=== PATIENT | female | born 1940 | race Caucasian/White ===

== ENCOUNTER 2016-06-24 10:55 | Outpatient (CLI) | payer MEDICARE, OTHER | END 2016-06-24 10:56 | disposition home or self-care (01) | DX: N63 Unspecified lump in breast (principal) ==

== ENCOUNTER 2016-08-25 08:40 | Outpatient (CLI) | payer MEDICARE, OTHER ==
[2016-08-25 13:26] LABS: HEMOGLOBIN A1C 0.59 g/dL
[2016-08-25 13:42] LABS: ALBUMIN/GLOBULIN RATIO 1.4 (1.0-2.2); BILIRUBIN,TOTAL 1.1 mg/dL (0.2-1.0); BUN - BLOOD UREA NITROGEN 10 mg/dL (6-20); CALCIUM 9.1 mg/dL (8.5-10.3); CARBON DIOXIDE - CO2 25 mmol/L (21-32); CHLORIDE 102 mmol/L (101-111); CREATININE 0.8 mg/dL (0.4-1.0); GFR - MDRD 70 (>89); GLUCOSE 121 mg/dL (70-100); POTASSIUM 3.8 mmol/L (3.5-5.0); SODIUM 136 mmol/L (135-145); TOTAL PROTEIN 6.6 g/dL (6.7-8.2)
== END 2016-08-25 08:41 | disposition home or self-care (01) ==
LOC: LAB.WCP 08:40
PROVIDERS: ATTEND Family Medicine
DX: I42.1 Obstructive hypertrophic cardiomyopathy (principal); E03.9 Hypothyroidism, unspecified; I10 Essential (primary) hypertension
CPT/HCPCS: 36415; 80053; 83036; 84443

== ENCOUNTER 2016-10-15 10:48 | Emergency (ER) | payer MEDICARE, OTHER ==
[2016-10-15] MEDS ORDERED: LIDOCAINE VISCOUS 2% 15 ML UDC MM STA (13:40)
[2016-10-15] MEDS ORDERED: MAG HYDROX/AL HYDROX/SIMETH 30 ML UDC PO STA (13:40)
[2016-10-15] MEDS ORDERED: PHENobarb/HYOSCY/ATROPINE/SCOP 5 ML SYRINGE PO STA (13:40)
--- NOTE | 2016-10-15 13:45 | ED Physician Documentation ---
PD HPI ABD PAIN - Stated complaint Stated Complaint: ABD PX - Chief complaint Chief Complaint: Abd Pain - History obtained from History obtained from: Patient - History of Present Illness Timing - onset: Today Timing - details: Still present Pain level max: 10 Pain level now: 7 Quality: Pain Location: Epigastric Associated symptoms: Nausea, Vomiting (1). No: Fever, Diarrhea, Dysuria Similar symptoms before: Diagnosis (history of GERD) - Additional information Additional information: The patient is a 75-year-old female who presents with epigastric abdominal pain that started this morning shortly after eating yogurt and drinking tea.She reports associated nausea with 1 small emesis. Her pain was initially a 10 out of 10 in severity, but is currently 7 out of 10 in severity. It briefly radiated to the left lower quadrant. She denies fever, diarrhea, or dysuria. She does have history of similar symptoms in the past but not this bad before. Surgical history is significant for cholecystectomy and for bladder suspension with mesh. She also has history of gastroesophageal reflux, for which she previously was taking medication, but does not take any medication for reflux currently. Review of Systems Constitutional: denies: Fever, Fatigue Ears: denies: Tinnitus/ringing Nose: denies: Congestion Throat: denies: Sore throat Cardiac: denies: Chest pain / pressure, Palpitations Respiratory: denies: Dyspnea, Cough GI: reports: Abdominal Pain, Nausea, Vomiting. 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 Cardiovascular: Coronary stent HEENT: Cataracts, Tonsil/Adenoidectomy, Other - Present Medications Home Medications: Ambulatory Orders Medication Instructions Recorded Confirmed Atorvastatin Calcium [Lipitor] 10 mg PO DAILY 08/06/12 10/15/16 Carvedilol [Coreg] 12.5 mg PO BID 08/06/12 10/15/16 Levothyroxine Sodium [Synthroid] 25 mcg PO DAILY 08/06/12 10/15/16 Aspirin 81 mg PO DAILY 10/15/16 10/15/16 Nitrofurantoin [Macrobid] 100 mg PO BID #10 capsule 10/15/16 Telmisartan [Micardis] 20 mg PO DAILY 10/15/16 10/15/16 raNITIdine [Zantac] 150 mg PO BID #30 tablet 10/15/16 - Allergies Allergies/Adverse Reactions: Allergies Allergy/AdvReac Type Severity Reaction Status Date / Time calcium carbonate Allergy Severe Anaphylaxis Verified 10/15/16 11:00 [From Os-Harvey] iodine Allergy Severe Rash Verified 10/15/16 11:00 red dye AdvReac Unknown Verified 10/15/16 11:00 - Social History Does the pt smoke?: No Smoking Status: Never smoker Does the pt drink ETOH?: No Does the pt have substance abuse?: No - Immunizations Immunizations are current?: Yes - POLST Patient has POLST: No PD ED PE NORMAL - Vitals Vital signs reviewed: Yes (Normal) - General General: Alert and oriented X 3, Well developed/nourished, Other (Overweight.) - HEENT HEENT: Atraumatic, Pharynx benign - Neck Neck: No adenopathy, No JVD - Cardiac Cardiac: RRR, No murmur - Respiratory Respiratory: No respiratory distress, Clear bilaterally - Abdomen Abdomen: Normal bowel sounds, Soft, Non distended, Other (Epigastric tenderness to palpation, without rebound or guarding.) - Back Back: No CVA TTP - Derm Derm: No rash - Extremities Extremities: No edema, No calf tenderness / cord - Neuro Neuro: Alert and oriented X 3, No motor deficit, Normal speech Results - Vitals Vitals: Vital Signs - 24 hr 10/15/16 10/15/16 14:02 14:58 Temperature 36.6 C Heart Rate 60 62 Respiratory 15 20 Rate Blood Pressure 149/68 H 144/70 H O2 Saturation 100 98 Oxygen O2 Source Room air - Labs Labs: Laboratory Tests 10/15/16 10/15/16 10/15/16 13:50 13:57 13:57 WBC 9.6 RBC 4.43 Hgb 14.1 Hct 41.2 MCV 93.0 MCH 31.7 H MCHC 34.1 RDW 13.3 Plt Count 233 MPV 7.9 Neut # 7.6 H Lymph # 1.4 L [place] # 0.5 Eos # 0.1 Baso # 0.1 Absolute Nucleated RBC 0.00 Nucleated RBCs 0.0 Sodium 137 Potassium 4.3 Chloride 102 Carbon Dioxide 27 Anion Gap 8.0 BUN 9 Creatinine 0.7 Estimated GFR (MDRD) 82 L Glucose 112 H Calcium 10.3 Total Bilirubin 1.1 H AST 73 H ALT 113 H Alkaline Phosphatase 77 Total Protein 7.7 Albumin 4.4 Globulin 3.3 Albumin/Globulin Ratio 1.3 Lipase 30 Urine Color LIGHT YELLOW Urine Clarity HAZY Urine pH 6.5 Ur Specific [place] 1.010 Urine Protein NEGATIVE Urine Glucose (UA) NEGATIVE Urine Ketones NEGATIVE Urine Occult Blood TRACE-LYSE Urine Nitrite POSITIVE H Urine Bilirubin NEGATIVE Urine Urobilinogen 0.2 (NORMAL) Ur Leukocyte Esterase MODERATE H Urine RBC 0-5 Urine WBC 11-25 H Urine WBC Clumps PRESENT Ur Squamous Epith Cells FEW Squamous Urine Bacteria Moderate H Urine Mucus Few Strands Ur Microscopic Review INDICATED Urine Culture Comments INDICATED PD MEDICAL DECISION MAKING - ED course Complexity details: reviewed old records, reviewed results, re-evaluated patient , considered differential, d/w patient, d/w family ED course: The patient's presentation is most consistent with gastroesophageal reflux disease, and also for acute cystitis. Her presentation does not suggest cardiac ischemia, biliary colic, pancreatitis, or pyelonephritis. CBC and chemistry panel are normal. Urinalysis is indicative of bladder infection. Treatment in the emergency department included administration of GI cocktail, which completely relieved her epigastric discomfort. Macrobid 100 mg is administered orally. She is being discharged with prescriptions for ranitidine and for Macrobid. I discussed with her and her the diagnosis, antibiotic treatment and outpatient follow-up, as well as potentially worrisome signs or symptoms that should prompt reevaluation in the emergency departmeny. Departure - Departure Disposition: 01 Home, Self Care Clinical Impression: GERD (gastroesophageal reflux disease) Qualifiers: Esophagitis presence: esophagitis presence not specified Qualified Code(s): K21.9 - Gastro-esophageal reflux disease without esophagitis Urinary tract infection Qualifiers: Urinary tract infection type: acute cystitis Hematuria presence: without hematuria Qualified Code(s): N30.00 - Acute cystitis without hematuria Instructions: ED GERD, ED UTI Cystitis Female Follow-Up: Jamie Rios MD [Primary Care Provider] - Prescriptions: Nitrofurantoin [Macrobid] 100 mg PO BID #10 capsule raNITIdine [Zantac] 150 mg PO BID #30 tablet Comments: Drink plenty of fluids, including cranberry juice. Take Macrobid twice daily as prescribed. Take ranitidine twice daily as prescribed. Follow-up with your primary physician within 1-2 weeks. Call to schedule appointment. Return to the emergency department if you develop increasing abdominal pain, persistent vomiting, fever with shaking chills, or otherwise worsening symptoms. Discharge Date/Time: 10/15/16 15:00
[2016-10-15] MEDS ORDERED: PHENobarb/HYOSCY/ATROPINE/SCOP 5 ML SYRINGE PO ONE (13:54)
[2016-10-15] MEDS ORDERED: MAG HYDROX/AL HYDROX/SIMETH 30 ML UDC ONE (13:54)
[2016-10-15] MEDS ORDERED: SODIUM CHLORIDE FLUSH 0.9% 10 ML SYRINGE IVP ONE (13:54)
[2016-10-15] MEDS ORDERED: LIDOCAINE VISCOUS 2% 15 ML UDC MM ONE (13:54)
[2016-10-15 14:15] LABS: BASOPHILS # (AUTO) 0.1 10^3/uL (0.0-0.1); BASOPHILS % (AUTO) 0.6 %; EOSINOPHILS # (AUTO) 0.1 10^3/uL (0.0-0.7); EOSINOPHILS % (AUTO) 1.2 %; HCT - HEMATOCRIT 41.2 % (37.0-47.0); HGB - HEMOGLOBIN 14.1 g/dL (12.0-16.0); LYMPHOCYTES # (AUTO) 1.4 10^3/uL (1.5-3.5); LYMPHOCYTES % (AUTO) 14.7 %; MEAN CORPUSCULAR HEMOGLOBIN 31.7 pg (27.0-31.0); MEAN CORPUSCULAR HGB CONC 34.1 g/dL (32.0-36.0); MEAN PLATELET VOLUME 7.9 fL (7.9-10.8); MONOCYTES # (AUTO) 0.5 10^3/uL (0.0-1.0); MONOCYTES % (AUTO) 4.9 %; NEUTROPHILS # (AUTO) 7.6 10^3/uL (1.5-6.6); NEUTROPHILS % (AUTO) 78.6 %; RED BLOOD COUNT 4.43 10^6/uL (4.20-5.40); RED CELL DISTRIBUTION WIDTH 13.3 % (12.0-15.0); UNCORRECTED WHITE BLOOD COUNT 9.6 x10^3/uL; WHITE BLOOD COUNT 9.6 x10^3/uL (4.8-10.8)
[2016-10-15 14:21] LABS: BILIRUBIN,URINE NEGATIVE (NEGATIVE); PH,URINE 6.5 PH (5.0-7.5)
[2016-10-15 14:22] LABS: UA w/ MICROSCOPIC CHARGE YES
[2016-10-15 14:29] LABS: UR CULTURE IF IND INDICATED
[2016-10-15 14:30] LABS: ALBUMIN/GLOBULIN RATIO 1.3 (1.0-2.2); BILIRUBIN,TOTAL 1.1 mg/dL (0.2-1.0); CALCIUM 10.3 mg/dL (8.5-10.3); CREATININE 0.7 mg/dL (0.4-1.0); POTASSIUM 4.3 mmol/L (3.5-5.0); TOTAL PROTEIN 7.7 g/dL (6.7-8.2)
[2016-10-15] MEDS ORDERED: NITROFURANTOIN MACRO 100 MG CAPSULE PO STA (14:40)
[2016-10-15] MEDS ORDERED: NITROFURANTOIN MACRO 100 MG CAPSULE PO ONE (14:47)
[2016-10-15 15:00] VITALS: BP 144/70
== END 2016-10-15 15:00 | disposition home or self-care (01) ==
LOC: ED 10:48
DX: K21.9 Gastro-esophageal reflux disease without esophagitis (principal); N30.00 Acute cystitis without hematuria; I10 Essential (primary) hypertension; E78.00 Pure hypercholesterolemia, unspecified; E03.9 Hypothyroidism, unspecified; Z95.5 Presence of coronary angioplasty implant and graft; Z87.440 Personal history of urinary (tract) infections
CPT/HCPCS: 36415; 80053; 81001; 83690; 85025; 87077; 87086; 87181; 99283; A9270; 81003

== ENCOUNTER 2016-10-22 07:26 | Outpatient (CLI) | payer MEDICARE, OTHER ==
[2016-10-22 12:55] LABS: BASOPHILS # (AUTO) 0.1 10^3/uL (0.0-0.1); EOSINOPHILS # (AUTO) 0.2 10^3/uL (0.0-0.7); EOSINOPHILS % (AUTO) 2.9 %; HCT - HEMATOCRIT 39.4 % (37.0-47.0); HGB - HEMOGLOBIN 13.4 g/dL (12.0-16.0); LYMPHOCYTES # (AUTO) 1.5 10^3/uL (1.5-3.5); MEAN CORPUSCULAR HEMOGLOBIN 32.3 pg (27.0-31.0); MEAN CORPUSCULAR VOLUME 95.1 fL (81.0-99.0); MEAN PLATELET VOLUME 8.7 fL (7.9-10.8); MONOCYTES # (AUTO) 0.7 10^3/uL (0.0-1.0); MONOCYTES % (AUTO) 10.9 %; NEUTROPHILS # (AUTO) 4.2 10^3/uL (1.5-6.6); NEUTROPHILS % (AUTO) 63.2 %; NUCLEATED RED BLOOD CELLS AUTO 0.1 /100WBC; RED BLOOD COUNT 4.15 10^6/uL (4.20-5.40); RED CELL DISTRIBUTION WIDTH 13.4 % (12.0-15.0); UNCORRECTED WHITE BLOOD COUNT 6.7 x10^3/uL; WHITE BLOOD COUNT 6.7 x10^3/uL (4.8-10.8)
[2016-10-22 13:45] LABS: CALCIUM 9.2 mg/dL (8.5-10.3); CARBON DIOXIDE - CO2 27 mmol/L (21-32); CHLORIDE 105 mmol/L (101-111); GLUCOSE 107 mg/dL (70-100); POTASSIUM 4.1 mmol/L (3.5-5.0); SODIUM 138 mmol/L (135-145)
[2016-10-22 14:08] LABS: ALBUMIN/GLOBULIN RATIO 1.4 (1.0-2.2); BILIRUBIN,TOTAL 1.1 mg/dL (0.2-1.0); BUN - BLOOD UREA NITROGEN 11 mg/dL (6-20); CREATININE 0.7 mg/dL (0.4-1.0); GFR - MDRD 82 (>89); TOTAL PROTEIN 6.6 g/dL (6.7-8.2)
== END 2016-10-22 07:27 | disposition home or self-care (01) ==
LOC: LAB.WCP 07:26
PROVIDERS: ATTEND Family Medicine
DX: R94.5 Abnormal results of liver function studies (principal); E03.9 Hypothyroidism, unspecified
CPT/HCPCS: 36415; 80053; 84443; 85025

== ENCOUNTER 2016-10-23 09:37 | Outpatient (CLI) | payer MEDICARE, OTHER ==
--- NOTE | 2016-10-23 12:16 | Ultrasound Report ---
RIGHT UPPER QUADRANT ULTRASOUND: 10/23/2016 CLINICAL INDICATION: Pain. TECHNIQUE: Real-time scanning was performed with delivery representative static images obtained. FINDINGS: The liver measures 14.1 cm. Hepatic echogenicity is increased, compatible with fatty infil tration. A 3 mm cyst is incidentally noted anteriorly in the left lobe. The gallbladder is surgically absent. The common bile duct measures 4 mm. The right kidney measures 12.6 cm, and demonstrates an i ncidental cyst. No hydronephrosis is seen. No free fluid is present. IMPRESSION: FATTY INFILTRATION OF THE LIVER. CHANGES OF CHOLECYSTECTOMY. JOB #: [id number] EXT JOB #:[id number]
== END 2016-10-23 09:38 | disposition home or self-care (01) ==
LOC: DI 09:37
PROVIDERS: ATTEND Family Medicine
DX: K76.0 Fatty (change of) liver, not elsewhere classified (principal); R93.41 Abnormal radiologic findings on diagnostic imaging of renal pelvis, ureter, or bladder; Z90.49 Acquired absence of other specified parts of digestive tract
CPT/HCPCS: 76705; 76857

== ENCOUNTER → 2016-10-24 | Outpatient (CLI) | payer MEDICARE, OTHER | LOC: DI 13:15 | PROVIDERS: ATTEND Physician Assistant Medical | DX: Z53.9 Procedure and treatment not carried out, unspecified reason (principal) ==

== ENCOUNTER 2016-11-03 09:00 | Outpatient (CLI) | payer MEDICARE, OTHER | END 2016-11-03 09:01 | disposition home or self-care (01) | LOC: LAB.WCP 09:00 | PROVIDERS: ATTEND Family Medicine | DX: N39.0 Urinary tract infection, site not specified (principal) | CPT/HCPCS: 87077; 87086 ==

== ENCOUNTER 2017-02-17 14:56 | Outpatient (CLI) | payer MEDICARE, OTHER ==
[2017-02-17 13:50] LABS: ALBUMIN/GLOBULIN RATIO 1.4 (1.0-2.2); BILIRUBIN,TOTAL 0.9 mg/dL (0.2-1.0); CALCIUM 9.5 mg/dL (8.5-10.3); CREATININE 0.8 mg/dL (0.4-1.0); POTASSIUM 4.4 mmol/L (3.5-5.0); TOTAL PROTEIN 6.9 g/dL (6.7-8.2)
[2017-02-17 14:02] LABS: HEMOGLOBIN A1C 0.65 g/dL
== END 2017-02-17 14:57 | disposition home or self-care (01) ==
LOC: LAB.WCP 14:56
PROVIDERS: ATTEND Family Medicine
DX: M25.512 Pain in left shoulder (principal); E11.9 Type 2 diabetes mellitus without complications; I42.1 Obstructive hypertrophic cardiomyopathy; I25.10 Atherosclerotic heart disease of native coronary artery without angina pectoris; I10 Essential (primary) hypertension
CPT/HCPCS: 36415; 80053; 82043; 83036

== ENCOUNTER 2017-04-30 08:00 | Outpatient (CLI) | payer MEDICARE, OTHER ==
[2017-04-30 19:23] LABS: BASOPHILS # (AUTO) 0.1 10^3/uL (0.0-0.1); BASOPHILS % (AUTO) 0.7 %; EOSINOPHILS # (AUTO) 0.1 10^3/uL (0.0-0.7); EOSINOPHILS % (AUTO) 1.1 %; HGB - HEMOGLOBIN 13.3 g/dL (12.0-16.0); LYMPHOCYTES # (AUTO) 1.4 10^3/uL (1.5-3.5); LYMPHOCYTES % (AUTO) 15.5 %; MEAN CORPUSCULAR HEMOGLOBIN 30.2 pg (27.0-31.0); MEAN CORPUSCULAR HGB CONC 33.1 g/dL (32.0-36.0); MEAN CORPUSCULAR VOLUME 91.3 fL (81.0-99.0); MEAN PLATELET VOLUME 8.5 fL (7.9-10.8); MONOCYTES % (AUTO) 11.6 %; NEUTROPHILS # (AUTO) 6.4 10^3/uL (1.5-6.6); NEUTROPHILS % (AUTO) 71.1 %; PLT - PLATELET COUNT 243 10^3/uL (130-450); RED CELL DISTRIBUTION WIDTH 12.9 % (12.0-15.0)
[2017-04-30 19:40] LABS: ALBUMIN 3.8 g/dL (3.2-5.5); ALBUMIN/GLOBULIN RATIO 1.2 (1.0-2.2); BILIRUBIN,TOTAL 1.1 mg/dL (0.2-1.0); CALCIUM 9.2 mg/dL (8.5-10.3); CREATININE 0.9 mg/dL (0.4-1.0); TOTAL PROTEIN 6.9 g/dL (6.7-8.2)
== END 2017-04-30 08:01 | disposition home or self-care (01) ==
LOC: LAB.R 08:00
PROVIDERS: ATTEND Family Medicine
DX: N12 Tubulo-interstitial nephritis, not specified as acute or chronic (principal)
CPT/HCPCS: 80053; 85025; 87086

== ENCOUNTER 2017-05-17 16:30 | Outpatient (CLI) | payer MEDICARE, OTHER | END 2017-05-17 16:31 | disposition home or self-care (01) | LOC: LAB.R 16:30 | PROVIDERS: ATTEND Physician Assistant Medical | DX: R30.0 Dysuria (principal) | CPT/HCPCS: 87086 ==

== ENCOUNTER 2017-05-19 08:10 | Outpatient (CLI) | payer MEDICARE, OTHER ==
[2017-05-19 13:41] LABS: ALBUMIN/GLOBULIN RATIO 1.3 (1.0-2.2); ALKALINE PHOSPHATASE 52 IU/L (42-121); ALT ALANINE AMINOTRANSFERASE 28 IU/L (10-60); AST ASPARTATE AMINOTRANSFERASE 22 IU/L (10-42); BILIRUBIN,TOTAL 0.8 mg/dL (0.2-1.0); BUN - BLOOD UREA NITROGEN 15 mg/dL (6-20); CARBON DIOXIDE - CO2 25 mmol/L (21-32); CHLORIDE 100 mmol/L (101-111); CHOLESTEROL 138 mg/dL; CREATININE 0.8 mg/dL (0.4-1.0); GFR - MDRD 70 (>89); GLUCOSE 127 mg/dL (70-100); HDL CHOLESTEROL 46 mg/dL; LDL CHOLESTEROL,CALCULATED 72 mg/dL; LDL/HDL RATIO 1.6 (<4.4); SODIUM 136 mmol/L (135-145); TOTAL PROTEIN 7.1 g/dL (6.7-8.2); VLDL CHOLESTEROL 20 mg/dL
[2017-05-19 14:54] LABS: HB2 TOTAL 14.3 g/dL; HEMOGLOBIN A1C 0.65 g/dL; HEMOGLOBIN A1C % 6.3 % (4.6-6.2)
== END 2017-05-19 08:11 | disposition home or self-care (01) ==
LOC: LAB.WCP 08:10
PROVIDERS: ATTEND Family Medicine
DX: I25.10 Atherosclerotic heart disease of native coronary artery without angina pectoris (principal); E11.9 Type 2 diabetes mellitus without complications; I10 Essential (primary) hypertension
CPT/HCPCS: 36415; 80053; 80061; 83036; 83721

== ENCOUNTER 2017-06-03 13:55 | Outpatient (CLI) | payer MEDICARE, OTHER ==
[2017-06-03 18:50] LABS: BILIRUBIN,URINE NEGATIVE (NEGATIVE); GLUCOSE, URINE (UA) NEGATIVE (NEGATIVE); KETONES,URINE (UA) NEGATIVE (NEGATIVE); LEUKOCYTE ESTERASE, URINE LARGE (NEGATIVE); NITRITE,URINE NEGATIVE (NEGATIVE); OCCULT BLOOD,URINE TRACE-LYSE (NEGATIVE); PH,URINE 6.5 PH (5.0-7.5); PROTEIN,URINE NEGATIVE (NEGATIVE); UROBILINOGEN,URINE 0.2 (NORMAL) E.U./dL (NORMAL)
[2017-06-03 18:58] LABS: CLARITY,URINE CLEAR (CLEAR)
[2017-06-03 18:59] LABS: BACTERIA,URINE Few /HPF (None Seen); RBC,URINE 0-5 /HPF (0-5); SQUAMOUS EPITHELIAL CELL,UR FEW Squamous (<= Few); WBC CLUMPS,URINE PRESENT
== END 2017-06-03 13:56 | disposition home or self-care (01) ==
LOC: LAB.R 13:55
PROVIDERS: ATTEND Family Medicine
DX: N39.0 Urinary tract infection, site not specified (principal); I25.10 Atherosclerotic heart disease of native coronary artery without angina pectoris; E11.9 Type 2 diabetes mellitus without complications
CPT/HCPCS: 81001; 87086

== ENCOUNTER 2017-06-05 21:08 | Emergency (ER) | payer MEDICARE, OTHER ==
--- NOTE | 2017-06-05 21:40 | ED Physician Documentation ---
PD HPI ABD PAIN - Stated complaint Stated Complaint: STOMACH ACHE - Chief complaint Chief Complaint: Abd Pain - History obtained from History obtained from: Patient - History of Present Illness Timing - onset: Yesterday Timing - details: Gradual onset, Waxing and waning Pain level now: 8 Quality: Cramping, Fullness/distended Location: All over / everywhere Radiation: Other (does not radiate) Improved by: Other (no ameliorating factors) Worsened by: Other (no exacerbating factors) Associated symptoms: No: Fever, Nausea, Vomiting, Diarrhea, Constipation Recently seen: Clinic (has completed two courses of keflex for UTI over past 2 months; provided urine sample few days ago to PMD, results pending) Review of Systems Constitutional: denies: Fever, Chills, Sweats Cardiac: reports: Reviewed and negative Respiratory: reports: Reviewed and negative GI: reports: Abdominal Pain, Abdominal Swelling. 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 Cardiovascular: Coronary stent HEENT: Cataracts, Tonsil/Adenoidectomy, Other - Present Medications Home Medications: Ambulatory Orders Medication Instructions Recorded Confirmed Atorvastatin Calcium [Lipitor] 10 mg PO DAILY 08/06/12 10/15/16 Carvedilol [Coreg] 12.5 mg PO BID 08/06/12 10/15/16 Levothyroxine Sodium [Synthroid] 25 mcg PO DAILY 08/06/12 10/15/16 Aspirin 81 mg PO DAILY 10/15/16 10/15/16 Telmisartan [Micardis] 20 mg PO DAILY 10/15/16 10/15/16 raNITIdine [Zantac] 150 mg PO BID #30 tablet 10/15/16 amLODIPine [Norvasc] 5 mg PO DAILY 06/05/17 06/05/17 Ciprofloxacin HCl [Cipro] 500 mg PO BID #14 tablet 06/06/17 - Allergies Allergies/Adverse Reactions: Allergies Allergy/AdvReac Type Severity Reaction Status Date / Time calcium carbonate Allergy Severe Anaphylaxis Verified 06/05/17 21:17 [From Os-Harvey] iodine Allergy Severe Rash Verified 06/05/17 21:17 red dye AdvReac Unknown Verified 06/05/17 21:17 - Social History Does the pt smoke?: No Smoking Status: Never smoker Does the pt drink ETOH?: No Does the pt have substance abuse?: No - Immunizations Immunizations are current?: Yes - POLST Patient has POLST: No PD ED PE NORMAL - Vitals Vital signs reviewed: Yes - General General: Alert and oriented X 3, No acute distress, Well developed/nourished - Cardiac Cardiac: RRR, No murmur - Respiratory Respiratory: No respiratory distress, Clear bilaterally - Abdomen Abdomen: Soft, Non distended, Other (mild epigastric and LLQ tenderness without mass, rebound, or guarding) - Back Back: No CVA TTP - Derm Derm: Normal color, Warm and dry, No rash PD ED PE EXPANDED - Abdomen Abdomen: Tender to palpation, LLQ. No: Rebound, Guarding Results - Vitals Vitals: Vital Signs - 24 hr 06/05/17 06/05/17 06/05/17 21:13 23:08 23:48 Temperature 36.8 C Heart Rate 68 80 72 Respiratory 17 18 16 Rate Blood Pressure 150/88 H 162/84 H 158/78 H O2 Saturation 96 95 95 06/06/17 00:58 Temperature Heart Rate 70 Respiratory 16 Rate Blood Pressure 150/72 H O2 Saturation 95 Oxygen O2 Source Room air - Labs Labs: Laboratory Tests 06/05/17 06/05/17 06/05/17 22:32 22:40 22:40 WBC 11.1 H RBC 4.52 Hgb 13.5 Hct 40.9 MCV 90.6 MCH 29.9 MCHC 33.0 RDW 13.0 Plt Count 251 MPV 8.0 Neut # 8.9 H Lymph # 1.3 L [place] # 0.6 Eos # 0.3 Baso # 0.1 Absolute Nucleated RBC 0.00 Nucleated RBC % 0.0 Sodium 136 Potassium 3.8 Chloride 100 L Carbon Dioxide 28 Anion Gap 8.0 BUN 12 Creatinine 0.7 Estimated GFR (MDRD) 82 L Glucose 165 H Calcium 9.8 Total Bilirubin 0.7 AST 23 ALT 26 Alkaline Phosphatase 51 Total Protein 7.2 Albumin 4.0 Globulin 3.2 Albumin/Globulin Ratio 1.3 Lipase 32 Urine Color YELLOW Urine Clarity CLOUDY Urine pH 7.0 Ur Specific [place] 1.010 Urine Protein NEGATIVE Urine Glucose (UA) NEGATIVE Urine Ketones NEGATIVE Urine Occult Blood TRACE-INTA Urine Nitrite NEGATIVE Urine Bilirubin NEGATIVE Urine Urobilinogen 0.2 (NORMAL) Ur Leukocyte Esterase LARGE H Urine RBC 6-10 H Urine WBC >25 H Urine WBC Clumps PRESENT Ur Squamous Epith Cells RARE Squamous Urine Bacteria Moderate H Urine Starch PRESENT Urine Culture Comments INDICATED - Rads (name of study) CT A/P Radiology: Prelim report reviewed, See rad report PD MEDICAL DECISION MAKING - ED course Complexity details: reviewed results, re-evaluated patient, considered differential, d/w patient Departure - Departure Disposition: 01 Home, Self Care Clinical Impression: Urinary tract infection, Abdominal pain Condition: Good Instructions: ED Dysuria Uncertain Cause, ED UTI Cystitis Female Follow-Up: Jamie Rios MD [Primary Care Provider] - Prescriptions: Ciprofloxacin HCl [Cipro] 500 mg PO BID #14 tablet Discharge Date/Time: 06/06/17 00:58
[2017-06-05] MEDS ORDERED: cefTRIAXone 1 GM in SODIUM CHLORIDE 0.9% MINIBAG 100 ML IV STA (22:33)
[2017-06-05 22:39] LABS: BILIRUBIN,URINE NEGATIVE (NEGATIVE); GLUCOSE, URINE (UA) NEGATIVE (NEGATIVE); KETONES,URINE (UA) NEGATIVE (NEGATIVE); LEUKOCYTE ESTERASE, URINE LARGE (NEGATIVE); NITRITE,URINE NEGATIVE (NEGATIVE); OCCULT BLOOD,URINE TRACE-INTA (NEGATIVE); PROTEIN,URINE NEGATIVE (NEGATIVE); UROBILINOGEN,URINE 0.2 (NORMAL) E.U./dL (NORMAL)
[2017-06-05 22:41] LABS: CLARITY,URINE CLOUDY (CLEAR)
[2017-06-05 23:05] LABS: BASOPHILS # (AUTO) 0.1 10^3/uL (0.0-0.1); BASOPHILS % (AUTO) 0.5 %; EOSINOPHILS # (AUTO) 0.3 10^3/uL (0.0-0.7); EOSINOPHILS % (AUTO) 2.7 %; HGB - HEMOGLOBIN 13.5 g/dL (12.0-16.0); LYMPHOCYTES # (AUTO) 1.3 10^3/uL (1.5-3.5); LYMPHOCYTES % (AUTO) 11.8 %; MEAN CORPUSCULAR HEMOGLOBIN 29.9 pg (27.0-31.0); MEAN CORPUSCULAR VOLUME 90.6 fL (81.0-99.0); MONOCYTES # (AUTO) 0.6 10^3/uL (0.0-1.0); MONOCYTES % (AUTO) 5.2 %; NEUTROPHILS # (AUTO) 8.9 10^3/uL (1.5-6.6); NEUTROPHILS % (AUTO) 79.8 %; PLT - PLATELET COUNT 251 10^3/uL (130-450); RED BLOOD COUNT 4.52 10^6/uL (4.20-5.40); WHITE BLOOD COUNT 11.1 x10^3/uL (4.8-10.8)
[2017-06-05 23:06] LABS: BACTERIA,URINE Moderate /HPF (None Seen); SQUAMOUS EPITHELIAL CELL,UR RARE Squamous (<= Few); STARCH,URINE PRESENT; WBC CLUMPS,URINE PRESENT
[2017-06-05 23:13] LABS: ALBUMIN/GLOBULIN RATIO 1.3 (1.0-2.2); BILIRUBIN,TOTAL 0.7 mg/dL (0.2-1.0); CALCIUM 9.8 mg/dL (8.5-10.3); CREATININE 0.7 mg/dL (0.4-1.0); TOTAL PROTEIN 7.2 g/dL (6.7-8.2)
--- NOTE | 2017-06-05 23:39 | CT Report ---
EXAM: CT ABDOMEN AND PELVIS EXAM DATE: 06/05/2017 10:55 PM. CLINICAL HISTORY: Left abdomen pain. COMPARISONS: None. TECHNIQUE: Routine helical CT imaging was performed through the abdomen and pelvis. IV contrast: None . Enteric contrast: No. Reconstructions: Coronal and sagittal. In accordance with CT protocol optimization, one or more of the following dose reduction techniques w ere utilized for this exam: automated exposure control, adjustment of mA and/or KV based on patient s ize, or use of iterative reconstructive technique. FINDINGS: Lung Bases: Unremarkable. Liver: Normal. No masses. Gallbladder/Bile Ducts: Cholecystectomy. No dilated ducts.. Spleen: Calcified granulomas noted. Pancreas: Normal. Adrenal Glands: Normal. Kidneys: Normal. No masses or hydronephrosis. Peritoneal Cavity/Bowel: Mild diverticulosis. No free fluid, free air or adenopathy. No masses or acu te inflammatory process. The appendix is well visualized and normal. Pelvic Organs: Hysterectomy. Unremarkable bladder. Vasculature: No aneurysms or other significant abnormality. Bones: No significant abnormality. Other: Fluid within a left inguinal hernia. Fat-containing ventral hernia above the umbilicus with a neck of 3.4 cm and a cross-section of 7.3 cm. IMPRESSION: 1. Mild diverticulosis without diverticulitis. 2. Left inguinal hernia noted containing fluid. 3. Cholecystectomy and hysterectomy noted. 4. Fat-containing ventral hernia above the umbilicus. [facility] Referring Provider Line: [phone] SITE ID: [id number]
--- NOTE | 2017-06-05 23:39 | CT Preliminary Report ---
Exam: CT ABDOMEN/PELVIS W/O IMPRESSION: 1. Mild diverticulosis without diverticulitis. 2. Left inguinal hernia noted containing fluid. 3. Cholecystectomy and hysterectomy noted. 4. Fat-containing ventral hernia above the umbilicus. [facility] SITE ID: [id number]
[2017-06-06 00:58] VITALS: BP 150/72
== END 2017-06-06 00:58 | disposition home or self-care (01) ==
LOC: ED 21:08
DX: N39.0 Urinary tract infection, site not specified (principal); R10.9 Unspecified abdominal pain; I10 Essential (primary) hypertension; E03.9 Hypothyroidism, unspecified; Z79.82 Long term (current) use of aspirin; E78.00 Pure hypercholesterolemia, unspecified; K43.9 Ventral hernia without obstruction or gangrene; K40.90 Unilateral inguinal hernia, without obstruction or gangrene, not specified as recurrent; K57.90 Diverticulosis of intestine, part unspecified, without perforation or abscess without bleeding
CPT/HCPCS: 36415; 74176; 80053; 81001; 83690; 85025; 87086; 96365; 99283

== ENCOUNTER 2017-06-18 08:00 | Outpatient (CLI) | payer MEDICARE, OTHER | END 2017-06-18 08:01 | disposition home or self-care (01) | LOC: LAB.WCP 08:00 | PROVIDERS: ATTEND Family Medicine | DX: N39.0 Urinary tract infection, site not specified (principal) | CPT/HCPCS: 87086 ==

== ENCOUNTER 2017-06-30 09:59 | Outpatient (CLI) | payer MEDICARE, OTHER ==
--- NOTE | 2017-07-01 15:27 | Mammography Report ---
DIGITAL SCREENING MAMMOGRAM: 06/30/2017 CLINICAL INDICATION: A 76-year-old with history of benign biopsies for screening. COMPARISON: 06/2016, 02/2015, 01/2015, 01/2013, 01/2012, 01/2011, 01/2010. TECHNIQUE: Routine CC and MLO projections were obtained of the breasts. FINDINGS: The breasts demonstrate scattered fibroglandular densities bilaterally. Coarse and punctate, typically benign calcifications are present. Postbiopsy changes are stable. In the left outer central breast, there is a possible obscured nodule. Further evaluation with spot compression views and possible ultrasound is recommended. No mammographically suspicious findings are appreciated in the right breast. IMPRESSION: INCOMPLETE EXAMINATION. RECOMMENDATION: Additional evaluation of the left breast as above. BIRADS CATEGORY 0 - INCOMPLETE. STANDARD QUALIFYING STATEMENTS: 1. This examination was reviewed with the aid of Computer-Aided Detection (CAD) . 2. A negative or benign imaging report should not delay biopsy if clinically suspicious findings are present. Consider surgical consultation if warranted. More than 5 % of cancers are not identified by imaging. 3. Dense breasts may obscure an underlying neoplasm. TD: 07/01/2017 15:27 MTDNathanael
== END 2017-06-30 10:00 | disposition home or self-care (01) ==
LOC: DI.N 09:59
PROVIDERS: ATTEND Family Medicine
DX: Z12.31 Encounter for screening mammogram for malignant neoplasm of breast (principal); R92.8 Other abnormal and inconclusive findings on diagnostic imaging of breast
CPT/HCPCS: 77067

== ENCOUNTER 2017-08-04 10:08 | Outpatient (CLI) | payer MEDICARE, OTHER ==
--- NOTE | 2017-08-04 12:59 | Ultrasound Report ---
LEFT BREAST ULTRASOUND: 08/04/2017 CLINICAL INDICATION: Nodule. TECHNIQUE: Real-time scanning was performed with registered representative static images obtained. FINDINGS: Ultrasound of the left outer breast was performed. At the 3 o'clock position, approximately 10 cm from the nipple, there is a hypoechoic lobulated nodule, measuring 7 x 6 x 5 mm. It demonstrates internal vascularity and irregular margins. The appearance is suspicious. Biopsy is recommended. The nodule appears amenable to ultrasound-guided core needle biopsy. IMPRESSION: SUSPICIOUS SOLID NODULE ON ULTRASOUND, CORRELATING WITH THE MAMMOGRAPHIC ABNORMALITY. RECOMMENDATION: Biopsy. The nodule appears amenable to ultrasound-guided core needle biopsy. BI-RADS CATEGORY 4 - SUSPICIOUS ABNORMALITY. Results and recommendations discussed with the patient at the time of the examination, and called to Serenity Bryant PA-C on 08/04/2017. Biopsy is scheduled for 08/12/2017 at 10:45 a.m. TD: 08/04/2017 12:50
--- NOTE | 2017-08-04 13:01 | Mammography Report ---
DIAGNOSTIC LEFT MAMMOGRAM: 08/04/2017 CLINICAL INDICATION: Abnormal screening. TECHNIQUE: Left true lateral and spot compression views. COMPARISON: 06/30/2017, 06/24/2016, 02/19/2015, 01/30/2015, 02/04/2013, 2011, 01/15/2011, 01/31/2010. FINDINGS: The left breast again demonstrates scattered fibroglandular densities. The 7 mm nodule in the lateral left breast persists on additional compression. On the craniocaudal view, some of the margins do not appear circumscribed. No associated calcifications are seen. Please also refer to left breast ultrasound of the same day. IMPRESSION: SUSPICIOUS ABNORMALITY, WITH A SOLID NODULE ON ULTRASOUND CORRELATING WITH THE MAMMOGRAPHIC ABNORMALITY. RECOMMENDATION: Biopsy. The nodule appears amenable to ultrasound-guided core needle biopsy. BI-RADS CATEGORY 4 - SUSPICIOUS ABNORMALITY. Results and recommendations discussed with the patient at the time of the examination, and called to Serenity Bryant PA-C on 08/04/2017. Biopsy is scheduled for 2017 at 10:45 a.m. STANDARD QUALIFYING STATEMENTS: 1. This examination was reviewed with the aid of Computer-Aided Detection (CAD) . 2. A negative or benign imaging report should not delay biopsy if clinically suspicious findings are present. Consider surgical consultation if warranted. More than 5 % of cancers are not identified by imaging. 3. Dense breasts may obscure an underlying neoplasm. TD: 08/04/2017 12:53 MTDD
== END 2017-08-04 10:09 | disposition home or self-care (01) ==
LOC: DI 10:08
PROVIDERS: ATTEND Physician Assistant Medical
DX: N63.0 Unspecified lump in unspecified breast (principal); R92.2 Inconclusive mammogram
CPT/HCPCS: 76642

== ENCOUNTER 2017-08-12 10:25 | Outpatient (CLI) | payer MEDICARE, OTHER ==
--- NOTE | 2017-08-12 12:33 | Ultrasound Report ---
ULTRASOUND-GUIDED CORE NEEDLE BIOPSY LEFT BREAST: 08/12/2017 CLINICAL INDICATION: A 7 mm nodule at the 3 o'clock position 10 cm from the nipple. TECHNIQUE/FINDINGS: Informed consent was obtained. Using standard aseptic technique, both 1% buffered lidocaine and Sensorcaine were injected into the left breast for local anesthesia. A small conner was made in the skin with a #11 blade. A 12-gauge Celero vacuum-assisted device was used to obtain four specimens. A Celero marker was placed in the biopsy cavity under ultrasound guidance. The patient was taken to a separate mammography machine, and a two view digital mammogram was performed, documenting the marker in the expected location and no significant postbiopsy hematoma. The wound was dressed and ice applied. The patient was observed for approximately 15 minutes, then was discharged from [facility] in good condition following instructions on wound care and obtaining biopsy results. The tissue was sent for histologic analysis. IMPRESSION: 1. ULTRASOUND-GUIDED BIOPSY OF THE LEFT BREAST. 2. AN ADDENDUM WILL BE MADE TO THIS REPORT WHEN PATHOLOGY IS REVIEWED TO ESTABLISH CONCORDANCE. TD: 08/12/2017 12:23
[2017-08-12] MEDS ORDERED: BUPIVACAINE 0.5%-EPI 1:200000 PF 10 ML VIAL SUBQ ONE (14:08)
[2017-08-12] MEDS ORDERED: LIDOCAINE 1% 10 ML MDV SUBQ ONE (14:08)
--- NOTE | 2017-09-27 13:56 | Mammography Report ---
EXAM: [id number] US/BXBC ([id number]) ULTRASOUND-GUIDED CORE NEEDLE BIOPSY LEFT BREAST: 08/12/2017 CLINICAL INDICATION: A 7 mm nodule at the 3 o'clock position 10 cm from the nipple. TECHNIQUE/FINDINGS: Informed consent was obtained. Using standard aseptic technique, both 1% buffered lidocaine and Sensorcaine were injected into the left breast for local anesthesia. A small conner was made in the skin with a #11 blade. A 12-gauge Celero vacuum- assisted device was used to obtain four specimens. A Celero marker was placed in the biopsy cavity under ultrasound guidance. The patient was taken to a separate mammography machine, and a two view digital mammogram was performed, documenting the marker in the expected location and no significant postbiopsy hematoma. The wound was dressed and ice applied. The patient was observed for approximately 15 minutes, then was discharged from [facility] in good condition following instructions on wound care and obtaining biopsy results. The tissue was sent for histologic analysis. IMPRESSION 1. ULTRASOUND-GUIDED BIOPSY OF THE LEFT BREAST. 2. AN ADDENDUM WILL BE MADE TO THIS REPORT WHEN PATHOLOGY IS REVIEWED TO ESTABLISH CONCORDANCE. 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 Results are concordant with the mammographic and ultrasound appearance. Further evaluation by a surgical consult suggested. BIRADS CATEGORY 6 - KNOWN MALIGNANCY. TD: 08/16/2017 16:08 Addendum Beer Brewer: RIC Addendum Reading Radiologist: Oneida Hawthorne MD Addendum Releasing Radiologist: Oneida Hawthorne MD Addendum Released Date Time: 08/17/17 1540 REVISED: DOCUMENT INCLUDES BOTH ORDERS [id number] & [id number]; COMBINED/LINK 07/ 16/2018jll MTDD
== END 2017-08-12 10:26 | disposition home or self-care (01) ==
LOC: DI 10:25
PROVIDERS: ATTEND Family Medicine
DX: C50.912 Malignant neoplasm of unspecified site of left female breast (principal); Z17.0 Estrogen receptor positive status [ER+]
CPT/HCPCS: 19083; 88305; 88342; 88360

== ENCOUNTER 2017-12-07 07:24 | Outpatient (CLI) | payer MEDICARE, OTHER ==
[2017-12-07 14:48] LABS: ALBUMIN/GLOBULIN RATIO 1.5 (1.0-2.2); BILIRUBIN,TOTAL 0.7 mg/dL (0.2-1.0); CALCIUM 9.6 mg/dL (8.5-10.3); CREATININE 0.7 mg/dL (0.4-1.0); TOTAL PROTEIN 6.7 g/dL (6.7-8.2)
[2017-12-07 15:40] LABS: HB2 TOTAL 14.3 g/dL; HEMOGLOBIN A1C 0.6 g/dL
== END 2017-12-07 07:25 | disposition home or self-care (01) ==
LOC: LAB.WCP 07:24
PROVIDERS: ATTEND Family Medicine
DX: E11.9 Type 2 diabetes mellitus without complications (principal); E03.9 Hypothyroidism, unspecified; I25.10 Atherosclerotic heart disease of native coronary artery without angina pectoris
CPT/HCPCS: 36415; 80053; 82043; 83036; 84443

== ENCOUNTER 2018-03-01 12:44 | Outpatient (CLI) | payer MEDICARE, OTHER | END 2018-03-01 23:59 | disposition home or self-care (01) | LOC: LAB.WCP 12:44 | PROVIDERS: ATTEND Family Medicine | DX: N39.0 Urinary tract infection, site not specified (principal) | CPT/HCPCS: 87086 ==

== ENCOUNTER 2018-03-04 08:02 | Outpatient (CLI) | payer MEDICARE, OTHER ==
[2018-03-04 12:35] LABS: BASOPHILS % (AUTO) 0.8 %; EOSINOPHILS # (AUTO) 0.2 10^3/uL (0.0-0.7); EOSINOPHILS % (AUTO) 4.2 %; HGB - HEMOGLOBIN 13.4 g/dL (12.0-16.0); LYMPHOCYTES % (AUTO) 17.5 %; MEAN CORPUSCULAR HEMOGLOBIN 31.5 pg (27.0-31.0); MEAN CORPUSCULAR HGB CONC 34.5 g/dL (32.0-36.0); MEAN CORPUSCULAR VOLUME 91.5 fL (81.0-99.0); MEAN PLATELET VOLUME 8.4 fL (7.9-10.8); MONOCYTES # (AUTO) 0.6 10^3/uL (0.0-1.0); MONOCYTES % (AUTO) 10.3 %; NEUTROPHILS # (AUTO) 3.9 10^3/uL (1.5-6.6); NEUTROPHILS % (AUTO) 67.2 %; PLT - PLATELET COUNT 224 10^3/uL (130-450); RED BLOOD COUNT 4.26 10^6/uL (4.20-5.40); RED CELL DISTRIBUTION WIDTH 13.1 % (12.0-15.0); WHITE BLOOD COUNT 5.9 x10^3/uL (4.8-10.8)
[2018-03-04 12:52] LABS: ALBUMIN 3.9 g/dL (3.2-5.5); ALBUMIN/GLOBULIN RATIO 1.3 (1.0-2.2); BILIRUBIN,TOTAL 0.9 mg/dL (0.2-1.0); CALCIUM 9.3 mg/dL (8.5-10.3); CREATININE 0.8 mg/dL (0.4-1.0); TOTAL PROTEIN 6.8 g/dL (6.7-8.2)
[2018-03-04 17:48] LABS: H. PYLORIS ANTIGEN STL NEGATIVE (Negative)
== END 2018-03-04 23:59 | disposition home or self-care (01) ==
LOC: LAB.WCP 08:02
PROVIDERS: ATTEND Family Medicine
DX: R10.13 Epigastric pain (principal)
CPT/HCPCS: 36415; 80053; 85025; 87338

== ENCOUNTER 2018-06-02 10:48 | Outpatient (CLI) | payer MEDICARE, OTHER ==
--- NOTE | 2018-06-06 06:16 | Mammography Report ---
Reason: ANNUAL / HX OF LEFT BREAST CA Procedure Date: 06/02/2018 Accession Number: [id number] / [id number] Procedure: [facility] - Diagnostic Dig Bilat CPT Code: FULL RESULT: EXAM: Diagnostic Dig Bilat DATE: 06/02/2018 11:51 AM CLINICAL HISTORY: Personal history of treated left breast cancer status post recent lumpectomy and radiation; first post lumpectomy follow-up. Remote history of benign excisional biopsy right breast. Family history breast cancer maternal aunt her 40s. TECHNIQUE: Bilateral CC and MLO views were obtained. Additional spot compressed left CC and 90 degree lateral view. COMPARISON: 08/12/2017 through 01/31/2010 FINDINGS: The breasts demonstrate scattered fibroglandular densities bilaterally. Right breast: Stable post excisional biopsy changes are noted in the anterior 12:00 breast. There are no suspicious masses, calcifications or areas of nonoperative distortion. Left breast: There are expected post lumpectomy changes in the lateral left breast; today's exam represents new imaging baseline. There are no suspicious masses, calcifications or areas of nonoperative distortion. IMPRESSION: Right breast: Benign. BI-RADS Category 2. Recommend annual screening mammography. Left breast: Expected post lumpectomy changes as described. Benign. BI-RADS Category 2. Recommend following post lumpectomy surveillance protocol with diagnostic mammography in 6 months. BI-RADS CATEGORY 2: Benign findings STANDARD QUALIFYING STATEMENTS: 1. This examination was not reviewed with the aid of Computer-Aided Detection (CAD). 2. A negative or benign imaging report should not preclude biopsy if clinically suspicious findings are present. 3. Dense breasts may obscure an underlying neoplasm. 4. This examination was reviewed with the aid of 3D breast imaging (tomosynthesis).
== END 2018-06-02 10:49 | disposition home or self-care (01) ==
LOC: DI 10:48
DX: N63.20 Unspecified lump in the left breast, unspecified quadrant (principal); Z08 Encounter for follow-up examination after completed treatment for malignant neoplasm; Z85.3 Personal history of malignant neoplasm of breast; Z80.3 Family history of malignant neoplasm of breast
CPT/HCPCS: 77066

== ENCOUNTER 2018-06-13 08:00 | Outpatient (CLI) | payer MEDICARE, OTHER ==
[2018-06-13 13:12] LABS: BASOPHILS # (AUTO) 0.1 10^3/uL (0.0-0.1); BASOPHILS % (AUTO) 1.7 %; EOSINOPHILS # (AUTO) 0.2 10^3/uL (0.0-0.7); EOSINOPHILS % (AUTO) 4.1 %; HGB - HEMOGLOBIN 13.4 g/dL (12.0-16.0); LYMPHOCYTES # (AUTO) 1.2 10^3/uL (1.5-3.5); LYMPHOCYTES % (AUTO) 20.6 %; MEAN CORPUSCULAR HEMOGLOBIN 31.4 pg (27.0-31.0); MEAN CORPUSCULAR HGB CONC 34.3 g/dL (32.0-36.0); MEAN CORPUSCULAR VOLUME 91.5 fL (81.0-99.0); MEAN PLATELET VOLUME 8.2 fL (7.9-10.8); MONOCYTES # (AUTO) 0.5 10^3/uL (0.0-1.0); MONOCYTES % (AUTO) 8.2 %; NEUTROPHILS % (AUTO) 65.4 %; PLT - PLATELET COUNT 230 10^3/uL (130-450); RED BLOOD COUNT 4.26 10^6/uL (4.20-5.40); RED CELL DISTRIBUTION WIDTH 13.1 % (12.0-15.0); WHITE BLOOD COUNT 6.1 x10^3/uL (4.8-10.8)
[2018-06-13 13:19] LABS: ALBUMIN 3.8 g/dL (3.2-5.5); ALBUMIN/GLOBULIN RATIO 1.3 (1.0-2.2); ALKALINE PHOSPHATASE 51 IU/L (42-121); ALT ALANINE AMINOTRANSFERASE 19 IU/L (10-60); AST ASPARTATE AMINOTRANSFERASE 20 IU/L (10-42); BILIRUBIN,TOTAL 0.7 mg/dL (0.2-1.0); BUN - BLOOD UREA NITROGEN 12 mg/dL (6-20); CALCIUM 9.2 mg/dL (8.5-10.3); CARBON DIOXIDE - CO2 26 mmol/L (21-32); CHLORIDE 100 mmol/L (101-111); CHOL/HDL RATIO 3.4 (<4.4); CHOLESTEROL 153 mg/dL; CREATININE 0.6 mg/dL (0.4-1.0); GFR - MDRD 97 (>89); GLUCOSE 125 mg/dL (70-100); HDL CHOLESTEROL 45 mg/dL; LDL CHOLESTEROL,CALCULATED 90 mg/dL; SODIUM 134 mmol/L (135-145); TOTAL PROTEIN 6.7 g/dL (6.7-8.2); VLDL CHOLESTEROL 18 mg/dL
[2018-06-13 13:45] LABS: HEMOGLOBIN A1C 0.66 g/dL; HEMOGLOBIN A1C % 6.5 % (4.6-6.2)
== END 2018-06-13 23:59 | disposition home or self-care (01) ==
LOC: LAB.WCP 08:00
PROVIDERS: ATTEND Family Medicine
DX: C50.912 Malignant neoplasm of unspecified site of left female breast (principal); E11.9 Type 2 diabetes mellitus without complications; E78.5 Hyperlipidemia, unspecified; E03.9 Hypothyroidism, unspecified
CPT/HCPCS: 36415; 80053; 80061; 82043; 83036; 83721; 84443; 85025

== ENCOUNTER 2018-10-25 18:11 | Emergency (ER) | payer MEDICARE, OTHER ==
[2018-10-25] MEDS ORDERED: MORPHINE 2 MG/ML CARPUJECT IVP STA (18:42)
--- NOTE | 2018-10-25 18:43 | ED Physician Documentation ---
PD HPI ABD PAIN - Stated complaint Stated Complaint: ABD PX/SORENESS - Chief complaint Chief Complaint: Abd Pain - History obtained from History obtained from: Patient - History of Present Illness Timing - onset: Today (77-year-old woman with history of cholecystectomy, bladder mesh, known diverticula presents with abdominal pain that started earlier today around 1 PM and became progressively more severe. Its basically from sternum down the pelvis and more on the left side and in the left lower quadrant. She has soft but otherwise normal bowel movement today. No nausea or vomiting.) Review of Systems Ten Systems: 10 systems reviewed and negative Constitutional: denies: Fever, Chills Cardiac: denies: Chest pain / pressure, Palpitations Respiratory: denies: Dyspnea, Cough : denies: Dysuria, Frequency PD PAST MEDICAL HISTORY - Past Medical History Cardiovascular: Hypertension, High cholesterol, Other Respiratory: Shortness of breath, Other Endocrine/Autoimmune: HyPOthyroidism GI: GERD : Chronic bladder infection HEENT: Chronic vision loss Psych: None Musculoskeletal: Osteoarthritis, Osteopenia Derm: None - Past Surgical History Past Surgical History: Yes General: Cholecystectomy, 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 Cardiovascular: Coronary stent HEENT: Cataracts, Tonsil/Adenoidectomy, Other - Present Medications Home Medications: Ambulatory Orders Medication Instructions Recorded Confirmed Atorvastatin Calcium [Lipitor] 10 mg PO DAILY 08/06/12 10/15/16 Carvedilol [Coreg] 12.5 mg PO BID 08/06/12 10/15/16 Levothyroxine Sodium [Synthroid] 25 mcg PO DAILY 08/06/12 10/15/16 Aspirin 81 mg PO DAILY 10/15/16 10/15/16 Telmisartan [Micardis] 20 mg PO DAILY 10/15/16 10/15/16 raNITIdine [Zantac] 150 mg PO BID #30 tablet 10/15/16 amLODIPine [Norvasc] 5 mg PO DAILY 06/05/17 06/05/17 Ciprofloxacin HCl [Cipro] 500 mg PO BID #14 tablet 06/06/17 Ciprofloxacin HCl [Cipro] 500 mg PO BID #20 tablet 10/25/18 Oxycodone HCl/Acetaminophen 1 - 2 each PO Q6H PRN #7 tablet 10/25/18 [Percocet 5-325 mg Tablet] - Allergies Allergies/Adverse Reactions: Allergies Allergy/AdvReac Type Severity Reaction Status Date / Time calcium carbonate Allergy Severe Anaphylaxis Verified 06/05/17 21:17 [From Os-Harvey] iodine Allergy Severe Rash Verified 06/05/17 21:17 red dye AdvReac Unknown Verified 06/05/17 21:17 - Social History Does the pt smoke?: No Smoking Status: Never smoker Does the pt drink ETOH?: No Does the pt have substance abuse?: No - Family History Family history: reports: Non contributory - Immunizations Immunizations are current?: Yes - POLST Patient has POLST: No PD ED PE NORMAL - Vitals Vital signs reviewed: Yes - General General: Alert and oriented X 3, No acute distress - HEENT HEENT: PERRL, EOMI - Neck Neck: Supple, no meningeal sign, No bony TTP - Cardiac Cardiac: RRR, No murmur - Respiratory Respiratory: No respiratory distress, Clear bilaterally - Abdomen Abdomen: Other (Soft with normal bowel tones, tender in the left lower quadrant without surgical signs.) - Back Back: No CVA TTP, No spinal TTP - Derm Derm: Normal color, Warm and dry, No rash - Extremities Extremities: No edema, No calf tenderness / cord - Neuro Neuro: Alert and oriented X 3, Normal speech Results - Vitals Vitals: Vital Signs - 24 hr 10/25/18 10/25/18 10/25/18 18:13 19:00 19:47 Temperature 36.5 C 36.9 C Heart Rate 63 58 L 57 L Respiratory 16 18 16 Rate Blood Pressure 183/72 H 181/77 H 154/75 H O2 Saturation 96 96 95 Oxygen O2 Source Room air - Labs Labs: Laboratory Tests 10/25/18 10/25/18 10/25/18 19:00 19:00 19:34 WBC 8.4 RBC 4.36 Hgb 13.5 Hct 40.3 MCV 92.4 MCH 31.0 MCHC 33.5 RDW 12.3 Plt Count 237 MPV 9.8 Neut # (Auto) 6.5 Lymph # (Auto) 1.1 L [place] # (Auto) 0.5 Eos # (Auto) 0.2 Baso # (Auto) 0.1 Absolute Nucleated RBC 0.00 Nucleated RBC % 0.0 Sodium 139 Potassium 4.1 Chloride 101 Carbon Dioxide 26 Anion Gap 12.0 BUN 13 Creatinine 0.8 Estimated GFR (MDRD) 70 L Glucose 167 H Calcium 9.7 Total Bilirubin 0.7 AST 20 ALT 19 Alkaline Phosphatase 59 Total Protein 6.9 Albumin 4.0 Globulin 2.9 Albumin/Globulin Ratio 1.4 Lipase 36 Urine Color YELLOW Urine Clarity CLEAR Urine pH 6.5 Ur Specific [place] 1.010 Urine Protein NEGATIVE Urine Glucose (UA) NEGATIVE Urine Ketones NEGATIVE Urine Occult Blood TRACE-LYSE Urine Nitrite NEGATIVE Urine Bilirubin NEGATIVE Urine Urobilinogen 0.2 (NORMAL) Ur Leukocyte Esterase LARGE H Urine RBC 0-5 Urine WBC 11-25 H Ur Squamous Epith Cells FEW Squamous Urine Bacteria Few Ur Microscopic Review INDICATED Urine Culture Comments INDICATED - Rads (name of study) ct a/p Radiology: EMP read contemporaneously (Note that the study was done without contrast because of a history of iodine allergy, bilateral inguinal hernias and abdominal ventral hernia without significant change from prior, diverticulosis without clear diverticulitis, unchanged hyperdense lesion in the right kidney.) PD MEDICAL DECISION MAKING - ED course ED course: 77-year-old woman presents with acute abdominal pain, the pattern is most consistent with diverticulitis which was not present on CT. Labs were unremarkable with normal white count. She does have evidence of a UTI which is treated with Cipro. Departure - Departure Disposition: 01 Home, Self Care Clinical Impression: Abdominal pain Qualifiers: Abdominal location: left lower quadrant Qualified Code(s): R10.32 - Left lower quadrant pain Urinary tract infection Qualifiers: Urinary tract infection type: acute pyelonephritis Qualified Code(s): N10 - Acute pyelonephritis Condition: Good Record reviewed to determine appropriate education?: Yes Instructions: ED Abdominal Pain Unkn Cause, ED Kidney Infec Female Prescriptions: Ciprofloxacin HCl [Cipro] 500 mg PO BID #20 tablet Oxycodone HCl/Acetaminophen [Percocet 5-325 mg Tablet] 1 - 2 each PO Q6H PRN #7 tablet PRN Reason: pain Comments: Follow-up with your primary care physician on as scheduled. Return for new or worsening symptoms. We will culture your urine, the results should be done in 48-72 hours. If an antibiotic change is necessary we will call you. Return if worse in the meantime, especially if you develop increasing flank pain, fevers, or cannot keep down the medication. Your blood pressure was elevated today on check into the emergency department. This does not mean that you have hypertension, it is a common phenomenon to come to the emergency department and have elevated blood pressure. I recommend that you see your primary care physician within the week to have it rechecked when you are feeling better.
[2018-10-25] MEDS ORDERED: IOVERSOL 320 100 ML VIAL IVP ONE (18:55)
[2018-10-25 19:04] LABS: BASOPHILS # (AUTO) 0.1 10^3/uL (0.0-0.1); BASOPHILS % (AUTO) 0.6 %; EOSINOPHILS # (AUTO) 0.2 10^3/uL (0.0-0.7); EOSINOPHILS % (AUTO) 2.4 %; HGB - HEMOGLOBIN 13.5 g/dL (12.0-16.0); LYMPHOCYTES # (AUTO) 1.1 10^3/uL (1.5-3.5); LYMPHOCYTES % (AUTO) 13.1 %; MEAN CORPUSCULAR HGB CONC 33.5 g/dL (32.0-36.0); MEAN CORPUSCULAR VOLUME 92.4 fL (81.0-99.0); MEAN PLATELET VOLUME 9.8 fL (7.9-10.8); MONOCYTES # (AUTO) 0.5 10^3/uL (0.0-1.0); MONOCYTES % (AUTO) 6.3 %; NEUTROPHILS # (AUTO) 6.5 10^3/uL (1.5-6.6); NEUTROPHILS % (AUTO) 77.1 %; PLT - PLATELET COUNT 237 10^3/uL (130-450); RED BLOOD COUNT 4.36 10^6/uL (4.20-5.40); RED CELL DISTRIBUTION WIDTH 12.3 % (12.0-15.0); WHITE BLOOD COUNT 8.4 x10^3/uL (4.8-10.8)
[2018-10-25 19:21] LABS: ALBUMIN/GLOBULIN RATIO 1.4 (1.0-2.2); BILIRUBIN,TOTAL 0.7 mg/dL (0.2-1.0); CALCIUM 9.7 mg/dL (8.5-10.3); CREATININE 0.8 mg/dL (0.4-1.0); TOTAL PROTEIN 6.9 g/dL (6.7-8.2)
[2018-10-25] MEDS ORDERED: ONDANSETRON 4 MG/2 ML VIAL IVP STA (19:41)
[2018-10-25 19:46] LABS: BILIRUBIN,URINE NEGATIVE (NEGATIVE); GLUCOSE, URINE (UA) NEGATIVE (NEGATIVE); KETONES,URINE (UA) NEGATIVE (NEGATIVE); LEUKOCYTE ESTERASE, URINE LARGE (NEGATIVE); NITRITE,URINE NEGATIVE (NEGATIVE); OCCULT BLOOD,URINE TRACE-LYSE (NEGATIVE); PH,URINE 6.5 PH (5.0-7.5); PROTEIN,URINE NEGATIVE (NEGATIVE); UROBILINOGEN,URINE 0.2 (NORMAL) E.U./dL (NORMAL)
[2018-10-25 19:48] VITALS: BP 154/75
[2018-10-25 19:55] LABS: CLARITY,URINE CLEAR (CLEAR)
[2018-10-25 19:56] LABS: BACTERIA,URINE Few /HPF (None Seen); RBC,URINE 0-5 /HPF (0-5); SQUAMOUS EPITHELIAL CELL,UR FEW Squamous (<= Few)
--- NOTE | 2018-10-25 20:11 | CT Report ---
Reason: LLQ pain Procedure Date: 10/25/2018 Accession Number: [id number] / [id number] Procedure: CT - Abdomen/Pelvis WO CPT Code: FULL RESULT: EXAM: CT ABDOMEN AND PELVIS EXAM DATE: 10/25/2018 07:25 PM. CLINICAL HISTORY: LLQ pain. COMPARISONS: ABDOMEN/PELVIS W/O 06/05/2017 10:55 PM. TECHNIQUE: Routine helical CT imaging was performed through the abdomen and pelvis. IV contrast: No. Enteric contrast: No. Reconstructions: Coronal and sagittal. In accordance with CT protocol optimization, one or more of the following dose reduction techniques were utilized for this exam: automated exposure control, adjustment of mA and/or KV based on patient size, or use of iterative reconstructive technique. FINDINGS: Lung Bases: There is left lower lobe atelectasis. Liver: Normal in size and contour. Gallbladder/Bile Ducts: Gallbladder surgically absent. Spleen: Normal in size. There are several calcified granulomas in spleen. Pancreas: Normal in size and contour. Adrenal Glands: Normal. Kidneys: There is an exophytic isodense cortical lesion arising from the lateral midpole right kidney measuring 15 mm which is unchanged. No renal or ureteral stone. No hydronephrosis. Peritoneal Cavity/Bowel: There is a midline fat-containing ventral hernia in the upper abdomen with hernia neck measuring 29 mm in diameter. There are bilateral fat-containing inguinal hernias which appear without significant change. There are diverticula in the distal colon. The appendix is well visualized and normal. Pelvic Organs: Urinary bladder is unremarkable. Vasculature: The abdominal aorta is normal in caliber. Bones: No significant abnormality. Other: There are findings of previous left breast surgery and lumpectomy. IMPRESSION: 1. Bilateral inguinal hernias and midline upper abdominal ventral hernia appear without significant change. 2. Colonic diverticulosis without diverticulitis. 3. Hyperdense lesion right kidney unchanged. Probable hyperdense or hemorrhagic renal cyst. RADIA
[2018-10-25] MEDS ORDERED: oxyCODONE/ACET 5/325 Prepack 4 PO STA (20:22)
[2018-10-25] MEDS ORDERED: CIPROFLOXACIN 250 MG TABLET PO STA (20:22)
== END 2018-10-25 20:34 | disposition home or self-care (01) ==
LOC: ED 18:11
DX: N10 Acute pyelonephritis (principal); R10.32 Left lower quadrant pain; K57.30 Diverticulosis of large intestine without perforation or abscess without bleeding; K40.20 Bilateral inguinal hernia, without obstruction or gangrene, not specified as recurrent; K43.9 Ventral hernia without obstruction or gangrene; N28.9 Disorder of kidney and ureter, unspecified; I10 Essential (primary) hypertension; Z79.82 Long term (current) use of aspirin; Z90.49 Acquired absence of other specified parts of digestive tract; Z88.8 Allergy status to other drugs, medicaments and biological substances
CPT/HCPCS: 36415; 74176; 80053; 81001; 83690; 85025; 87086; 96374; 96375; 99284; A9270; 81003

== ENCOUNTER 2018-12-15 12:08 | Outpatient (CLI) | payer MEDICARE, OTHER ==
--- NOTE | 2018-12-15 13:49 | Mammography Report ---
Reason: LT BREAST CA Procedure Date: 12/15/2018 Accession Number: [id number] / [id number] Procedure: [facility] - Diagnostic Dig LT CPT Code: FULL RESULT: EXAM: Diagnostic Dig LT DATE: 12/15/2018 1:16 PM CLINICAL HISTORY: Personal history left breast cancer status post lumpectomy. TECHNIQUE: (L) - Left. CC and MLO views were obtained. COMPARISON: 06/02/2018, 08/12/2017, 08/04/2017 PARENCHYMAL PATTERN: (A) - The breasts demonstrate scattered fibroglandular densities bilaterally. FINDINGS: There is expected postoperative architectural distortion in the upper outer quadrant posterior left breast. Multiple surgical clips are present. The architectural distortion has improved compared to 06/02/2018. IMPRESSION: Benign findings. BI-RADS category 2. RECOMMENDATION: (12MOS) - Recommend 12 month follow-up exam. Recommend bilateral diagnostic mammogram in 12 months. BI-RADS CATEGORY: (2) - Benign Findings. STANDARD QUALIFYING STATEMENTS: 1. This examination was not reviewed with the aid of Computer-Aided Detection (CAD). 2. A negative or benign imaging report should not preclude biopsy if clinically suspicious findings are present. 3. Dense breasts may obscure an underlying neoplasm. 4. This examination was reviewed with the aid of 3D breast imaging (tomosynthesis).
== END 2018-12-15 12:09 | disposition home or self-care (01) ==
LOC: DI 12:08
PROVIDERS: ATTEND Family Medicine
DX: N63.20 Unspecified lump in the left breast, unspecified quadrant (principal); R92.8 Other abnormal and inconclusive findings on diagnostic imaging of breast; Z85.3 Personal history of malignant neoplasm of breast

== ENCOUNTER 2019-03-21 14:10 | Outpatient (CLI) | payer MEDICARE, OTHER ==
[2019-03-21 12:59] LABS: BASOPHILS % (AUTO) 0.7 %; EOSINOPHILS # (AUTO) 0.2 10^3/uL (0.0-0.7); EOSINOPHILS % (AUTO) 3.8 %; HGB - HEMOGLOBIN 13.3 g/dL (12.0-16.0); LYMPHOCYTES # (AUTO) 1.1 10^3/uL (1.5-3.5); LYMPHOCYTES % (AUTO) 18.8 %; MEAN CORPUSCULAR HEMOGLOBIN 30.6 pg (27.0-31.0); MEAN CORPUSCULAR HGB CONC 32.4 g/dL (32.0-36.0); MEAN CORPUSCULAR VOLUME 94.7 fL (81.0-99.0); MEAN PLATELET VOLUME 10.1 fL (7.9-10.8); MONOCYTES # (AUTO) 0.6 10^3/uL (0.0-1.0); MONOCYTES % (AUTO) 9.5 %; NEUTROPHILS # (AUTO) 3.9 10^3/uL (1.5-6.6); NEUTROPHILS % (AUTO) 66.7 %; PLT - PLATELET COUNT 252 10^3/uL (130-450); RED BLOOD COUNT 4.34 10^6/uL (4.20-5.40); RED CELL DISTRIBUTION WIDTH 12.7 % (12.0-15.0); WHITE BLOOD COUNT 5.8 x10^3/uL (4.8-10.8)
[2019-03-21 13:14] LABS: % IRON SATURATION 34 % (20-50); ALBUMIN/GLOBULIN RATIO 1.5 (1.0-2.2); ALKALINE PHOSPHATASE 58 IU/L (42-121); ALT ALANINE AMINOTRANSFERASE 19 IU/L (10-60); AST ASPARTATE AMINOTRANSFERASE 17 IU/L (10-42); BUN - BLOOD UREA NITROGEN 12 mg/dL (6-20); CALCIUM 9.2 mg/dL (8.5-10.3); CARBON DIOXIDE - CO2 28 mmol/L (21-32); CHLORIDE 102 mmol/L (101-111); CHOL/HDL RATIO 3.7 (<4.4); CHOLESTEROL 158 mg/dL; CREATININE 0.7 mg/dL (0.4-1.0); GFR - MDRD 81 (>89); GLUCOSE 148 mg/dL (70-100); HDL CHOLESTEROL 43 mg/dL; IRON 101 ug/dL (28-170); LDL CHOLESTEROL,CALCULATED 89 mg/dL; LDL/HDL RATIO 2.1 (<4.4); SODIUM 137 mmol/L (135-145); TOTAL IRON BINDING CAPACITY 301 ug/dL (250-450); TOTAL PROTEIN 6.7 g/dL (6.7-8.2); TRANSFERRIN 215 mg/dL (192-382); VLDL CHOLESTEROL 26 mg/dL
[2019-03-21 13:26] LABS: CREATININE,URINE 72.9 mg/dL; MICROALBUM/CREATININE RATIO,UR 4.1 ug/mg (<30.0); MICROALBUMIN,URINE 0.3 mg/dL (0-300.0)
[2019-03-21 13:28] LABS: HB2 TOTAL 13.4 g/dL; HEMOGLOBIN A1C 0.66 g/dL; HEMOGLOBIN A1C % 6.7 % (4.6-6.2)
[2019-03-21 13:32] LABS: FERRITIN 37.3 ng/mL (11.0-306.8)
== END 2019-03-21 23:59 | disposition home or self-care (01) ==
LOC: LAB.WCP 14:10
PROVIDERS: ATTEND Family Medicine
DX: E11.9 Type 2 diabetes mellitus without complications (principal); E78.5 Hyperlipidemia, unspecified; K62.5 Hemorrhage of anus and rectum; E03.9 Hypothyroidism, unspecified
CPT/HCPCS: 36415; 80053; 80061; 82043; 82570; 82728; 83036; 83540; 83721; 84443; 84466; 85025

== ENCOUNTER 2019-09-25 09:56 | Outpatient (CLI) | payer MEDICARE, OTHER ==
--- NOTE | 2019-09-28 11:39 | Mammography Report ---
BILATERAL DIGITAL SCREENING MAMMOGRAM 3D/2D: 09/25/2019 CLINICAL: Routine screening. Personal history of left breast cancer. Comparison is made to exams dated: 12/14/2018 mammogram, 06/02/2018 mammogram - [facility], 10/06/2017 mammogram - [facility], 08/12/2017 mammogram, 08/04/2017 mammogram, and 8 mammogram - [facility]. There are scattered fibroglandular elements in both claudio sts. There are benign calcifications in the right breast. There also are benign post operative findings i n both breasts. No significant masses, calcifications, or other findings are seen in either breast. There has been no significant interval change. IMPRESSION: There is no mammographic evidence of malignancy. A 1 year screening mammogram is recommended. This exam was interpreted at Station ID: [id number]. NOTE: For mammograms, a report in lay terms will be sent to the patient. Approximately 15% of breast malignancies will not be visualized mammographically. In the management of a palpable breast mass, a negative mammogram must not discourage biopsy of a clinically suspicious lesion. Electronically Signed By: Rossy matthew/yas:09/27/2019 18:05:13 ACR BI-RADS Category 2: Benign Finding(s) 3342F PARENCHYMAL PATTERN: (A) - The breast(s) demonstrate(s) scattered fibroglandular densities. BI-RADS CATEGORY: (2) - 2 RECOMMENDATION: (ANNUAL) - Recommend routine annual screening mammography. [id number] 1 year screening LATERALITY: (B)
== END 2019-09-25 09:57 | disposition home or self-care (01) ==
LOC: DI 09:56
PROVIDERS: ATTEND Family Medicine
DX: Z12.31 Encounter for screening mammogram for malignant neoplasm of breast (principal); Z08 Encounter for follow-up examination after completed treatment for malignant neoplasm; Z85.3 Personal history of malignant neoplasm of breast
CPT/HCPCS: 77063; 77067

== ENCOUNTER 2019-09-26 07:45 | Outpatient (CLI) | payer MEDICARE, OTHER ==
[2019-09-26 12:02] LABS: BASOPHILS % (AUTO) 0.5 %; EOSINOPHILS # (AUTO) 0.2 10^3/uL (0.0-0.7); EOSINOPHILS % (AUTO) 3.5 %; HGB - HEMOGLOBIN 13.2 g/dL (12.0-16.0); LYMPHOCYTES # (AUTO) 1.1 10^3/uL (1.5-3.5); LYMPHOCYTES % (AUTO) 18.8 %; MEAN CORPUSCULAR HEMOGLOBIN 30.1 pg (27.0-31.0); MEAN CORPUSCULAR HGB CONC 31.7 g/dL (32.0-36.0); MEAN CORPUSCULAR VOLUME 94.8 fL (81.0-99.0); MEAN PLATELET VOLUME 10.7 fL (7.9-10.8); MONOCYTES # (AUTO) 0.6 10^3/uL (0.0-1.0); MONOCYTES % (AUTO) 10.3 %; NEUTROPHILS % (AUTO) 66.4 %; PLT - PLATELET COUNT 235 10^3/uL (130-450); RED BLOOD COUNT 4.39 10^6/uL (4.20-5.40); RED CELL DISTRIBUTION WIDTH 12.6 % (12.0-15.0)
[2019-09-26 12:33] LABS: ALBUMIN 3.9 g/dL (3.2-5.5); ALBUMIN/GLOBULIN RATIO 1.6 (1.0-2.2); BILIRUBIN,TOTAL 1.2 mg/dL (0.2-1.0); CALCIUM 9.3 mg/dL (8.5-10.3); CREATININE 0.8 mg/dL (0.4-1.0); MAGNESIUM 2.1 mg/dL (1.7-2.8); TOTAL PROTEIN 6.3 g/dL (6.7-8.2)
[2019-09-26 12:45] LABS: HB2 TOTAL 14.3 g/dL; HEMOGLOBIN A1C 0.74 g/dL; HEMOGLOBIN A1C % 6.9 % (4.6-6.2)
== END 2019-09-26 23:59 | disposition home or self-care (01) ==
LOC: LAB.WCP 07:45
PROVIDERS: ATTEND Family Medicine
DX: K27.9 Peptic ulcer, site unspecified, unspecified as acute or chronic, without hemorrhage or perforation (principal); E11.9 Type 2 diabetes mellitus without complications; M81.0 Age-related osteoporosis without current pathological fracture; I25.10 Atherosclerotic heart disease of native coronary artery without angina pectoris; E78.5 Hyperlipidemia, unspecified; I10 Essential (primary) hypertension; C50.912 Malignant neoplasm of unspecified site of left female breast
CPT/HCPCS: 36415; 80053; 82306; 82607; 83036; 83735; 84443; 85025

== ENCOUNTER 2019-10-26 20:32 | Observation (INO) | payer MEDICARE, OTHER ==
[2019-10-26 21:08] LABS: BILIRUBIN,URINE NEGATIVE (NEGATIVE); GLUCOSE, URINE (UA) NEGATIVE (NEGATIVE); KETONES,URINE (UA) TRACE mg/dL (NEGATIVE); LEUKOCYTE ESTERASE, URINE MODERATE (NEGATIVE); NITRITE,URINE NEGATIVE (NEGATIVE); OCCULT BLOOD,URINE NEGATIVE (NEGATIVE); PROTEIN,URINE NEGATIVE (NEGATIVE); UROBILINOGEN,URINE 0.2 (NORMAL) E.U./dL (NORMAL)
[2019-10-26 21:09] LABS: CLARITY,URINE CLEAR (CLEAR)
[2019-10-26 21:17] LABS: BACTERIA,URINE Rare /HPF (None Seen); RBC,URINE None Seen /HPF (0-5); SQUAMOUS EPITHELIAL CELL,UR RARE Squamous (<= Few)
[2019-10-26 21:26] LABS: BASOPHILS # (AUTO) 0.1 10^3/uL (0.0-0.1); BASOPHILS % (AUTO) 0.5 %; EOSINOPHILS # (AUTO) 0.2 10^3/uL (0.0-0.7); EOSINOPHILS % (AUTO) 1.6 %; HGB - HEMOGLOBIN 14.3 g/dL (12.0-16.0); LYMPHOCYTES # (AUTO) 1.3 10^3/uL (1.5-3.5); LYMPHOCYTES % (AUTO) 9.9 %; MEAN CORPUSCULAR HEMOGLOBIN 31.2 pg (27.0-31.0); MEAN CORPUSCULAR HGB CONC 34.4 g/dL (32.0-36.0); MEAN CORPUSCULAR VOLUME 90.8 fL (81.0-99.0); MEAN PLATELET VOLUME 9.6 fL (7.9-10.8); MONOCYTES # (AUTO) 0.6 10^3/uL (0.0-1.0); MONOCYTES % (AUTO) 4.9 %; NEUTROPHILS # (AUTO) 10.5 10^3/uL (1.5-6.6); NEUTROPHILS % (AUTO) 82.5 %; PLT - PLATELET COUNT 246 10^3/uL (130-450); RED BLOOD COUNT 4.58 10^6/uL (4.20-5.40); RED CELL DISTRIBUTION WIDTH 12.6 % (12.0-15.0); WHITE BLOOD COUNT 12.7 x10^3/uL (4.8-10.8)
[2019-10-26 21:31] LABS: ALBUMIN 4.1 g/dL (3.2-5.5); ALBUMIN/GLOBULIN RATIO 1.5 (1.0-2.2); BILIRUBIN,TOTAL 0.7 mg/dL (0.2-1.0); CALCIUM 9.6 mg/dL (8.5-10.3); CREATININE 0.7 mg/dL (0.4-1.0); TOTAL PROTEIN 6.8 g/dL (6.7-8.2)
[2019-10-26] MEDS ORDERED: HYDROmorphone 1 MG/ML CARPUJECT IVP STA (22:45)
[2019-10-26] MEDS ORDERED: KETOROLAC 30 MG/ML VIAL IVP STA (22:45)
[2019-10-26] MEDS ORDERED: SODIUM CHLORIDE 0.9% 1,000 ML IV STA (22:45)
--- NOTE | 2019-10-27 00:43 | ED Physician Documentation ---
History of Present Illness - Stated complaint Stated Complaint: ABD PX/NAUSEA/DRY HEAVES - Chief complaint Chief Complaint: Abd Pain - History obtained from History obtained from: Patient - Additonal information Additional information: Patient comes emergency department complaining of left lower quadrant/groin pain and swelling that feels like a hernia. Patient states that the pain began flaring up over the past day, and that today, patient has had nausea and vomiting. She states she had a normal bowel movement yesterday but had only very small one today. Patient states she has pain radiating up the left side of her abdomen and across the top. No fevers or chills. No urinary symptoms. No blood in her urine. No blood in her stools. No other complaints at this time Review of Systems Ten Systems: 10 systems reviewed and negative Constitutional: reports: Reviewed and negative Eyes: reports: Reviewed and negative Ears: reports: Reviewed and negative Nose: reports: Reviewed and negative Throat: reports: Reviewed and negative Cardiac: reports: Reviewed and negative Respiratory: reports: Reviewed and negative GI: reports: Abdominal Pain, Nausea, Vomiting, Constipation : reports: Reviewed and negative Skin: reports: Reviewed and negative Musculoskeletal: reports: Reviewed and negative Neurologic: reports: Reviewed and negative Psychiatric: reports: Reviewed and negative Endocrine: reports: Reviewed and negative Immunocompromised: reports: Reviewed and negative PD PAST MEDICAL HISTORY - Past Medical History Past Medical History: Yes Cardiovascular: Hypertension, High cholesterol, Other Respiratory: Shortness of breath, Other Neuro: None Endocrine/Autoimmune: HyPOthyroidism GI: GERD : Chronic bladder infection HEENT: Chronic vision loss Psych: None Musculoskeletal: Osteoarthritis, Osteopenia Derm: None - Past Surgical History Past Surgical History: Yes General: Cholecystectomy, 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 Cardiovascular: Coronary stent HEENT: Cataracts, Tonsil/Adenoidectomy, Other - Present Medications Home Medications: Ambulatory Orders Medication Instructions Recorded Confirmed Atorvastatin Calcium [Lipitor] 20 mg PO DAILY 08/06/12 10/27/19 Carvedilol [Coreg] 12.5 mg PO BID 08/06/12 10/15/16 Levothyroxine Sodium [Synthroid] 25 mcg PO DAILY 08/06/12 10/27/19 Aspirin 81 mg PO DAILY 10/15/16 10/27/19 Telmisartan [Micardis] 10 mg PO BID 10/15/16 10/27/19 raNITIdine [Zantac] 150 mg PO BID #30 tablet 10/15/16 amLODIPine [Norvasc] 5 mg PO BID 06/05/17 10/27/19 Ciprofloxacin HCl [Cipro] 500 mg PO BID #14 tablet 06/06/17 Ciprofloxacin HCl [Cipro] 500 mg PO BID #20 tablet 10/25/18 Oxycodone HCl/Acetaminophen 1 - 2 each PO Q6H PRN #7 tablet 10/25/18 [Percocet 5-325 mg Tablet] Cyclosporine [Restasis] DAILY 10/27/19 - Allergies Allergies/Adverse Reactions: Allergies Allergy/AdvReac Type Severity Reaction Status Date / Time calcium carbonate Allergy Severe Anaphylaxis Verified 10/26/19 20:39 [From Os-Harvey] iodine Allergy Severe Rash Verified 10/26/19 20:39 Sulfa (Sulfonamide Allergy Rash Verified 10/27/19 04:12 Antibiotics) red dye AdvReac Unknown Verified 10/26/19 20:39 - Social History Does the pt smoke?: No Smoking Status: Never smoker Does the pt drink ETOH?: No Does the pt have substance abuse?: No - Immunizations Immunizations are current?: Yes - POLST Patient has POLST: No Results - Vitals Vitals: Vital Signs - 24 hr 10/26/19 10/26/19 10/26/19 20:35 22:35 23:07 Temperature 36.6 C Heart Rate 66 65 60 Respiratory 17 17 15 Rate Blood Pressure 186/87 H 184/79 H 183/77 H O2 Saturation 97 96 94 10/26/19 10/27/19 10/27/19 23:46 01:02 02:07 Temperature Heart Rate 58 L 68 64 Respiratory 16 16 Rate Blood Pressure 161/80 H 186/94 H 170/83 H O2 Saturation 96 97 95 Oxygen O2 Source Room air - Labs Labs: Laboratory Tests 10/26/19 10/26/19 10/26/19 20:45 21:14 21:20 WBC 12.7 H RBC 4.58 Hgb 14.3 Hct 41.6 MCV 90.8 MCH 31.2 H MCHC 34.4 RDW 12.6 Plt Count 246 MPV 9.6 Neut # (Auto) 10.5 H Lymph # (Auto) 1.3 L [place] # (Auto) 0.6 Eos # (Auto) 0.2 Baso # (Auto) 0.1 Absolute Nucleated RBC 0.00 Nucleated RBC % 0.0 Sodium 134 L Potassium 4.3 Chloride 95 L Carbon Dioxide 27 Anion Gap 12.0 BUN 14 Creatinine 0.7 Estimated GFR (MDRD) 81 L Glucose 162 H Calcium 9.6 Total Bilirubin 0.7 AST 24 ALT 28 Alkaline Phosphatase 59 Total Protein 6.8 Albumin 4.1 Globulin 2.7 Albumin/Globulin Ratio 1.5 Lipase 36 Urine Color YELLOW Urine Clarity CLEAR Urine pH 7.0 Ur Specific [place] 1.015 Urine Protein NEGATIVE Urine Glucose (UA) NEGATIVE Urine Ketones TRACE Urine Occult Blood NEGATIVE Urine Nitrite NEGATIVE Urine Bilirubin NEGATIVE Urine Urobilinogen 0.2 (NORMAL) Ur Leukocyte Esterase MODERATE H Urine RBC None Seen Urine WBC 6-10 H Ur Squamous Epith Cells RARE Squamous Urine Bacteria Rare Ur Microscopic Review INDICATED Urine Culture Comments INDICATED - Rads (name of study) CT abd/pelvis Radiology: Prelim report reviewed, EMP read indepedently, See rad report (Closed-loop small bowel obstruction;Left inguinal hernia with fat and intestine herniation and adjacent fluid) PD MEDICAL DECISION MAKING - ED course ED course: Mook Departure - Departure Disposition: ED Place in Observation Clinical Impression: SBO (small bowel obstruction), Inguinal hernia of left side with obstruction Condition: Serious Discharge Date/Time: 10/27/19 03:13
[2019-10-27] MEDS ORDERED: ONDANSETRON 4 MG/2 ML VIAL IVP PRN (02:38)
[2019-10-27] MEDS ORDERED: HYDROmorphone 0.5 MG/0.5 ML SYRINGE IVP PRN (02:38)
[2019-10-27] MEDS ORDERED: ACETAMINOPHEN 1,000 MG/100 ML 100 ML IV PRN (02:38)
[2019-10-27] MEDS ORDERED: SODIUM CHLORIDE FLUSH 0.9% 10 ML SYRINGE IVP PRN (02:38)
[2019-10-27] MEDS: D5NS W/20 MEQ KCL 1,000 ML IV SCH ×2 (03:19→13:32)
[2019-10-27] MEDS: methocarbamoL 500 MG TABLET PO SCH ×3 (06:25→18:45)
[2019-10-27] MEDS: METOCLOPRAMIDE 10 MG/2 ML VIAL IVP SCH ×3 (06:25→18:45)
[2019-10-27] MEDS ORDERED: PANTOPRAZOLE 40 MG VIAL IVP SCH (07:00)
[2019-10-27] MEDS ORDERED: ENOXAPARIN 40 MG/0.4 ML SYRINGE SUBQ SCH (09:00)
--- NOTE | 2019-10-27 10:29 | CT Report ---
PROCEDURE: Abdomen/Pelvis WO INDICATIONS: LLQ/pelvic pain TECHNIQUE: Noncontrast 5 mm thick sections acquired from the diaphragms to the symphysis. 5 mm coronal and sagi ttal reformats were then performed. For radiation dose reduction, the following was used: automated exposure control, adjustment of mA and/or kV according to patient size. COMPARISON: None. FINDINGS: Image quality: Excellent. ABDOMEN: Lung bases: Lung bases are clear. Heart size is normal. Trace pericardial effusion is noted. Solid organs: Liver and spleen are normal in size. Gallbladder is removed. Pancreas is normal in c ontours. No adrenal nodules. Kidneys are normal in size, without hydronephrosis or nephrolithiasis. Right renal cyst is present. Peritoneum and bowel: There are moderately dilated fluid-filled loops of small bowel with air-fluid l evels. This extends into a dilated loop of bowel into the left inguinal hernia. Bowel loops within th e hernia is distended with adjacent fluid. Nodes and vessels: No retroperitoneal or mesenteric adenopathy by size criteria. Aorta and inferior vena cava are normal in caliber. Miscellaneous: Fat-containing ventral hernia with rectus defect measuring 3.6 cm is noted. PELVIS: Genitourinary: Bladder wall thickness is normal. Miscellaneous: No inguinal hernias or adenopathy. Bones: No suspicious bony lesions. No vertebral body compression fractures. IMPRESSION: 1. Partial small bowel obstruction with transition point in the left inguinal hernia. Bowel loop with in the hernia is distended with adjacent fluid suggestive of closed loop obstruction. The above findings are concordant with preliminary report. Reviewed by: Glory Rojas MD on 10/27/2019 10:27 AM PDT Approved by: Glory Rojas MD on 10/27/2019 10:27 AM PDT Station ID: [id number]
--- NOTE | 2019-10-27 12:37 | PHARMACY PROGRESS NOTE ---
- Best Possible Medication History Admit Date and Time: 10/27/19 0238 Processed by: Pharmacy Medication History completed: Yes Patient Interview: Completed Secondary Source(s): Pharmacy records (PATIENT INTERVIEWED BY PHARMACY. PATIENT ABLE TO CONFIRM HOME MEDICATIONS ), Insurance records As the person ultimately responsible for medication therapy, providers are able to order a medication from an existing home medication list in [facility] via the "Reconcile Routine" prior to Confirmation of that medication by java support engineer. Such practice is discouraged except when the physician, in their clinical judgment, deems that a medical need exists for a medication without regard to previous use.
[2019-10-27] MEDS: SODIUM CHLORIDE FLUSH 0.9% 10 ML SYRINGE IVP SCH ×2 (17:06→18:50)
--- NOTE | 2019-10-27 17:09 | HISTORY & PHYSICAL EXAMINATION ---
Chief Complaint - Chief Complaint Chief Complaint: Small bowel obstruction History of Present Illness - Admitted From Admitted From:: Admitted from the emergency room, coming from home. - History Obtained From Records Reviewed: Emergency room records, imaging, and history obtained from patient. History obtained from: History obtained from patient. Exam Limitations: No limitations - History of Present Illness HPI Comment/Other: 78-year-old female with history of left inguinal hernia asymptomatic, who presents with recurrent small bowel obstruction suspected secondary to historic inguinal herniation. Presented with nausea and vomiting. On imaging no evidence of incarceration or strangulation, which was also confirmed on physical exam on discussion with emergency provider. Patient admitted with nasogastric tube decompression pending further symptoms. Patient was evaluated overnight by emergency staff and admission orders were put per their evaluation. At the time of my evaluation which was later that morning, patient overall felt significantly improved with no further nausea and no further vomiting. She was at that time reportedly passing flatus. She was advised that we would advance diet. 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 Cardiovascular: reports: Coronary stent HEENT: reports: Cataracts, Tonsil/Adenoidectomy, Other - POLST Patient has POLST: No Meds/Allgy - Home Medications Home Medications: Ambulatory Orders Medication Instructions Recorded Confirmed Atorvastatin Calcium [Lipitor] 20 mg PO DAILY 08/06/12 10/27/19 Aspirin 81 mg PO DAILY 10/15/16 10/27/19 amLODIPine [Norvasc] 5 mg PO BID 06/05/17 10/27/19 Amlodipine Besylate [Norvasc] 2.5 mg PO BID 10/27/19 10/27/19 Anastrozole 1 mg PO DAILY 10/27/19 10/27/19 Cholecalciferol [Vitamin D3] 75 mcg PO DAILY 10/27/19 10/27/19 Cyclosporine [Restasis] 1 drops EACHEYE DAILY 10/27/19 10/27/19 Levothyroxine Sodium [Synthroid] 50 mcg PO DAILY 10/27/19 10/27/19 Metformin HCl 500 mg PO BID 10/27/19 10/27/19 Omeprazole 20 mg PO DAILY 10/27/19 10/27/19 Telmisartan [Micardis] 80 mg PO BID 10/27/19 10/27/19 Ubidecarenone/Vit E Acet [Co Q-10 1 cap PO DAILY 10/27/19 10/27/19 100 mg Softgel] Vitamin B Complex/Folic Acid 0.4 mg PO DAILY 10/27/19 10/27/19 [B-Complex Tablet] carvediloL [Carvedilol] 25 mg PO BID 10/27/19 10/27/19 - Allergies Allergies/Adverse Reactions: Allergies Allergy/AdvReac Type Severity Reaction Status Date / Time calcium carbonate Allergy Severe Anaphylaxis Verified 10/26/19 20:39 [From Os-Harvey] iodine Allergy Severe Rash Verified 10/26/19 20:39 Sulfa (Sulfonamide Allergy Rash Verified 10/27/19 04:12 Antibiotics) red dye AdvReac Unknown Verified 10/26/19 20:39 Review of Systems - Constitutional Constitutional: denies: Fatigue, Fever, Chills, Malaise - Eyes Eyes: denies: Pain - Ears, Nose & Throat Ears, Nose & Throat: denies: Ear pain - Cardiovascular Cariovascular: denies: Chest pain - Respiratory Respiratory: denies: Cough, Sputum production, Wheezing, Snoring - Gastrointestinal Gastrointestinal: reports: Abdominal pain, Abdominal distention, Nausea, Vomiting. denies: Black stools, Bloody stools - Genitourinary Genitourinary: denies: Dysuria - Musculoskeletal Musculoskeletal: denies: Muscle pain, Back pain Exam - Vital Signs Reviewed Vital Signs: Yes Vital Signs: Vital Signs x48h Temp Pulse Resp BP Pulse Ox 10/27/19 15:46 37.1 C 61 16 170/78 H 97 - Physical Exam General Appearance: positive: No acute distress Eyes Bilateral: positive: Normal inspection, PERRL, EOMI ENT: positive: ENT inspection nml Respiratory: positive: Chest non-tender, No respiratory distress, Breath sounds nml. negative: Wheezes, Rales, Rhonchi Cardiovascular: positive: Regular rate & rhythm Abdomen: positive: No distention, Tenderness, Other (Patient was nondistended, mildly tender to palpation deeply in the left lower quadrant, palpable hernia defect however no evidence of herniation at this time, no strangulation/incarceration, no overlying erythema. Patient with normal active bowel sounds. No rebound. No guarding.). negative: Guarding, Rebound Extremities: positive: Non-tender, Full ROM, Nml appearance Neurologic/Psychiatric: positive: Oriented x3, CN's nml (2-12) Sepsis Event Note (H) - Evaluation Current Stage of Sepsis: Ruled out Conclusion/Plan - Problem List (1) Abdominal pain Conclusion/Plan: 78-year-old female with history of abdominal interventions including laparotomy, who has recurrent obstructive symptoms secondary to left inguinal hernia. At the time of my evaluation she presents with no obvious signs of active small bowel obstruction with no associated obstipation. No peritoneal signs at this time. It appears that this partial small bowel obstruction is likely secondary to historic left inguinal hernia. She has not recently had appropriate gastro- intestinal endoscopic follow-up, neither upper endoscopy for history of GERD and surveillance for suspected Angulo's esophagus nor colonoscopy. We we discussed with this patient these concerns as well as her weight and associated risk factors. She would benefit from laparoscopic inguinal hernia repair possible bilateral both from a pain control standpoint and a recurrent standpoint. After discussion we deferred urgent/emergent repair given there was no active obstruction or incarceration at this time or on presenting CAT scan. Optimally, the patient would be best served with outpatient surgical consultation as well as medical optimization. I suspect that we should proceed with repair within the next several weeks. For now plan is as follows: Plan as follows: 1. bowel rest, nasogastric decompression, IV fluid resuscitation. 2. Serial abdominal exams, plain film imaging, possible repeat imaging with CT and contrast challenge. 3. May need operative intervention if fails conservative management. Will follow closely. 4. Electrolytes normal at this time we will continue to monitor them with daily lab draws. Qualifiers: Abdominal location: left lower quadrant Qualified Code(s): R10.32 - Left lower quadrant pain (2) GERD (gastroesophageal reflux disease) Conclusion/Plan: 78-year-old female with longstanding GERD and no recent upper endoscopy to rule out metaplasia and/or Angulo's esophagus. This will optimally be performed at the same time as necessary colonoscopy. Perform these prior to elective repair of left inguinal hernia possible bilateral laparoscopically or open; pending surgical follow-up. Qualifiers: Esophagitis presence: esophagitis presence not specified Qualified Code(s): K21.9 - Gastro-esophageal reflux disease without esophagitis (3) Inguinal hernia of left side with obstruction Conclusion/Plan: See above. (4) SBO (small bowel obstruction) Conclusion/Plan: See above. - Lab Results Fish Bones: 10/26/19 21:20 10/26/19 21:14
--- NOTE | 2019-10-27 18:34 | XRAY Report ---
PROCEDURE: Abdomen 1 View X-Ray INDICATIONS: sbo follow up TECHNIQUE: 3 views of the abdomen were acquired. COMPARISON: CT abdomen/pelvis dated 10/26/2019. FINDINGS: Surgical changes and devices: Surgical clips are seen in the right upper quadrant related to prior ch olecystectomy. Surgical clips are also seen in the left breast and left axilla. Bowel: No pneumoperitoneum. The bowel gas pattern is normal. Soft tissues: No masses; visualized solid organ contours appear normal in size. No suspicious abdom inal calcifications. Atherosclerotic calcifications are seen in the aorta. Bones: No suspicious bony abnormalities. Mild degenerative changes are seen in the spine. IMPRESSION: Nonspecific bowel gas pattern without dilated air-filled loops of bowel in the abdomen. Reviewed by: Jeovanny William MD on 10/27/2019 6:33 PM PDT Approved by: Jeovanny William MD on 10/27/2019 6:33 PM PDT Station ID: [id number]
[2019-10-27] MEDS: LOSARTAN 50 MG TABLET PO SCH ×2 (18:45→18:51)
[2019-10-27] MEDS ORDERED: metFORMIN 500 MG TABLET PO SCH (21:00)
[2019-10-27] MEDS ORDERED: amLODIPine 5 MG TABLET PO SCH (21:00)
[2019-10-27] MEDS ORDERED: carvediloL 12.5 MG TABLET PO SCH (21:00)
[2019-10-27] MEDS ORDERED: AMLODIPINE BESYLATE 2.5 MG PO SCH (21:00)
[2019-10-27] MEDS ORDERED: ATORVASTATIN 10 MG TABLET PO SCH (21:00)
--- NOTE | 2019-10-27 21:51 | Discharge Plan ---
Discharge Plan Problem Reviewed?: Yes Disposition: Home, Self Care Condition: Good Diet: Soft Activity Restrictions: No Restrictions Shower Restrictions: No Driving Restrictions: No Weight Bearing: Full Weight Instruction Topics: Obstruction Sm Bowel, ED Hernia Inguinal Health Concerns: DISCHARGE INSTRUCTIONS TEMPLATE: No heavy lifting, pushing, or pulling. Stairs are allowed, no strenuous/exertional activities. 5-10lbs weight carrying limit (i.e. gallon of milk) if post-op. If provided, abdominal binder while out of bed and while ambulating. Call or proceed to clinic/ER for fevers, severe pain, nausea, vomiting, inability to pass flatus/stool, bleeding, wound redness/discharge, weakness, excessively loose stool/diarrhea, or for any other reasonably worrisome symptom or concern. Soft diet, no raw vegetables, avoid high fiber foods. Colace 100mg by mouth twice to three times daily while taking narcotic pain medication. If no bowel movement in 24-48hr, may take 17g Miralax in 8oz water twice daily until bowel movement. May shower, no submersive bathing. Follow up in clinic in 2-4 weeks for wound check and staple removal. No driving while taking narcotic pain medications. Follow up with primary care provider and/or medical subspecialist following discharge as well. F/U General Surgery for possible elective repair. Plan of Treatment: Advised of concerning features. Follow up surgery clinic. No Smoking: If you smoke, Please STOP! Call for help. Follow-up with: Jamie Rios MD [Primary Care Provider] -
--- NOTE | 2019-10-27 21:59 | Discharge Plan ---
Discharge Plan Problem Reviewed?: Yes Disposition: Home, Self Care Condition: Good Activity Restrictions: No Restrictions Shower Restrictions: No Driving Restrictions: No Weight Bearing: Full Weight Instruction Topics: Obstruction Sm Bowel, ED Hernia Inguinal Health Concerns: DISCHARGE INSTRUCTIONS TEMPLATE: No heavy lifting, pushing, or pulling. Stairs are allowed, no strenuous/exertional activities. 5-10lbs weight carrying limit (i.e. gallon of milk) if post-op. If provided, abdominal binder while out of bed and while ambulating. Call or proceed to clinic/ER for fevers, severe pain, nausea, vomiting, inability to pass flatus/stool, bleeding, wound redness/discharge, weakness, excessively loose stool/diarrhea, or for any other reasonably worrisome symptom or concern. Soft diet, no raw vegetables, avoid high fiber foods. Colace 100mg by mouth twice to three times daily while taking narcotic pain medication. If no bowel movement in 24-48hr, may take 17g Miralax in 8oz water twice daily until bowel movement. May shower, no submersive bathing. Follow up in clinic in 2-4 weeks for wound check and staple removal. No driving while taking narcotic pain medications. Follow up with primary care provider and/or medical subspecialist following discharge as well. F/U General Surgery for possible elective repair of inguinal hernia. Plan of Treatment: Advised of concerning features. Follow up surgery clinic. No Smoking: If you smoke, Please STOP! Call for help. Follow-up with: Jamie Rios MD [Primary Care Provider] -
[2019-10-27 22:28] VITALS: BP 152/89
[2019-10-28] MEDS ORDERED: ASPIRIN CHEW 81 MG TABLET PO SCH (09:00)
[2019-10-28] MEDS ORDERED: FOLIC ACID PO SCH (09:00)
[2019-10-28] MEDS ORDERED: UBIDECARENONE PO SCH (09:00)
[2019-10-28] MEDS ORDERED: CHOLECALCIFEROL 25 MCG TABLET PO SCH (09:00)
[2019-10-28] MEDS ORDERED: FAMOTIDINE 20 MG TABLET PO SCH (09:00)
[2019-10-28] MEDS ORDERED: NON FORMULARY MED (Cyclosporine [Restasis] 1 DROPS) EACHEYE SCH (09:00)
[2019-10-28] MEDS ORDERED: VIT E ACET PO SCH (09:00)
[2019-10-28] MEDS ORDERED: LEVOTHYROXINE 25 MCG TABLET PO SCH (09:00)
[2019-10-28] MEDS ORDERED: VITAMIN B COMPLEX PO SCH (09:00)
[2019-10-28] MEDS ORDERED: ANASTROZOLE 1 MG TABLET PO SCH (09:00)
--- NOTE | 2019-10-31 01:21 | DISCHARGE SUMMARY ---
Discharge Summary Admit Date: 10/27/19 Discharge Date: 10/28/19 Discharging Provider: Mook Code Status: Attempt Resuscitation Condition at Discharge: Good Discharge Disposition: 01 Home, Self Care - DIAGNOSES Admission Diagnoses: 1. Morbid obesity 2. Left inguinal hernia, reducible 3. Small bowel obstruction 4. Need for endoscopic screening Discharge Diagnoses with Status of Each Condition: 1. Morbid obesity - PERSISTS 2. Left inguinal hernia, reducible - PERSISTS 3. Small bowel obstruction - RESOLVED 4. Need for endoscopic screening - PERSISTS - HPI History of Present Illness: 78-year-old female with history of left inguinal hernia asymptomatic, who presents with recurrent small bowel obstruction suspected secondary to historic inguinal herniation. Presented with nausea and vomiting. On imaging no evidence of incarceration or strangulation, which was also confirmed on physical exam on discussion with emergency provider. Patient admitted with nasogastric tube decompression pending further symptoms. Patient was evaluated overnight by emergency staff and admission orders were put per their evaluation. At the time of my evaluation which was later that morning, patient overall felt significantly improved with no further nausea and no further vomiting. She was at that time reportedly passing flatus. She was advised that we would advance diet. - HOSPITAL COURSE Hospital Course: Patient admitted with small bowel obstruction. This was likely secondary to the patient's left inguinal hernia. This was reducible and patient had spontaneous resumption of bowel function. NGT removed after successful clamp trial with resumption of bowel function. Given the patient had not been medically assessed/optimized, it was deemed that this patient might be better served proceeding with an elective open versus laparoscopic hernia repair and had no concern for bowel compromise on serial examination following admission. Moreover the patient would necessarily require preoperative upper and lower endoscopy for which she has an indication. Tolerated oral intake without any complication. Denied nausea denied vomiting. Was advanced for diet without any complication. Discharge instructions given. Patient plan for follow-up and was counseled would proceed with endoscopic screening and then consider elective repair. Advised should she have any recurrent symptoms including but not limited to nausea/vomiting/abdominal pain to return to ER for evaluation. - ALLERGIES Allergies/Adverse Reactions: Allergies Allergy/AdvReac Type Severity Reaction Status Date / Time calcium carbonate Allergy Severe Anaphylaxis Verified 10/26/19 20:39 [From Os-Harvey] iodine Allergy Severe Rash Verified 10/26/19 20:39 Sulfa (Sulfonamide Allergy Rash Verified 10/27/19 04:12 Antibiotics) red dye AdvReac Unknown Verified 10/26/19 20:39 - MEDICATIONS Home Medications: Ambulatory Orders Medication Instructions Recorded Confirmed Atorvastatin Calcium [Lipitor] 20 mg PO DAILY 08/06/12 10/27/19 Aspirin 81 mg PO DAILY 10/15/16 10/27/19 amLODIPine [Norvasc] 5 mg PO BID 06/05/17 10/27/19 Amlodipine Besylate [Norvasc] 2.5 mg PO BID 10/27/19 10/27/19 Anastrozole 1 mg PO DAILY 10/27/19 10/27/19 Cholecalciferol [Vitamin D3] 75 mcg PO DAILY 10/27/19 10/27/19 Cyclosporine [Restasis] 1 drops EACHEYE DAILY 10/27/19 10/27/19 Levothyroxine Sodium [Synthroid] 50 mcg PO DAILY 10/27/19 10/27/19 Metformin HCl 500 mg PO BID 10/27/19 10/27/19 Omeprazole 20 mg PO DAILY 10/27/19 10/27/19 Telmisartan [Micardis] 80 mg PO BID 10/27/19 10/27/19 Ubidecarenone/Vit E Acet [Co Q-10 1 cap PO DAILY 10/27/19 10/27/19 100 mg Softgel] Vitamin B Complex/Folic Acid 0.4 mg PO DAILY 10/27/19 10/27/19 [B-Complex Tablet] carvediloL [Carvedilol] 25 mg PO BID 10/27/19 10/27/19 - PHYSICAL EXAM AT DISCHARGE General Appearance: positive: No acute distress Eyes Bilateral: positive: Normal inspection, PERRL, EOMI ENT: positive: ENT inspection nml Neck: positive: Nml inspection Respiratory: positive: Chest non-tender, No respiratory distress, Breath sounds nml. negative: Wheezes, Rales, Rhonchi Cardiovascular: positive: Regular rate & rhythm Abdomen: positive: Non-tender, Other (Reducible inguinal hernia). negative: Guarding, Rebound Skin: positive: Color nml Extremities: positive: Non-tender, Full ROM, Nml appearance Neurologic/Psychiatric: positive: Oriented x3, CN's nml (2-12) - LABS Result Diagrams: 10/26/19 21:20 10/26/19 21:14 - SEPSIS Current Stage of Sepsis: Ruled out - FOLLOW UP Follow Up: DISCHARGE INSTRUCTIONS TEMPLATE: No heavy lifting, pushing, or pulling. Stairs are allowed, no strenuous/exertional activities. 5-10lbs weight carrying limit (i.e. gallon of milk) if post-op. If provided, abdominal binder while out of bed and while ambulating. Call or proceed to clinic/ER for fevers, severe pain, nausea, vomiting, inability to pass flatus/stool, bleeding, wound redness/discharge, weakness, excessively loose stool/diarrhea, or for any other reasonably worrisome symptom or concern. Soft diet, no raw vegetables, avoid high fiber foods. Colace 100mg by mouth twice to three times daily while taking narcotic pain medication. If no bowel movement in 24-48hr, may take 17g Miralax in 8oz water twice daily until bowel movement. May shower, no submersive bathing. Follow up in clinic in 2-4 weeks for wound check and staple removal. No driving while taking narcotic pain medications. Follow up with primary care provider and/or medical subspecialist following discharge as well. F/U General Surgery for possible elective repair of inguinal hernia.
== END 2019-10-27 22:11 | disposition home or self-care (01) ==
LOC: ED 20:32 → MS2 10-27 02:38
PROVIDERS: ADMIT Surgery; ATTEND Surgery
DX: K40.31 Unilateral inguinal hernia, with obstruction, without gangrene, recurrent (principal); E66.01 Morbid (severe) obesity due to excess calories; Z68.35 Body mass index [BMI] 35.0-35.9, adult; I10 Essential (primary) hypertension; E03.9 Hypothyroidism, unspecified; K21.9 Gastro-esophageal reflux disease without esophagitis
CPT/HCPCS: 36415; 74018; 74176; 80053; 81001; 83690; 85025; 87086; 96361; 96365; 96366; 96372; 96375; 99285; A9270; G0378; J1170; J1650; J2765; 81003

== ENCOUNTER 2019-11-23 13:17 | Outpatient (CLI) | payer MEDICARE, OTHER | END 2019-11-23 13:18 | disposition home or self-care (01) | LOC: COV 13:17 | PROVIDERS: ATTEND Surgery | DX: Z01.818 Encounter for other preprocedural examination (principal); K40.90 Unilateral inguinal hernia, without obstruction or gangrene, not specified as recurrent; Z87.19 Personal history of other diseases of the digestive system; Z20.828 Contact with and (suspected) exposure to other viral communicable diseases ==

== ENCOUNTER 2019-11-27 06:22 | Day surgery (SDC) | payer MEDICARE, OTHER ==
[2019-11-27] MEDS ORDERED: DEXAMETHASONE 4 MG/ML VIAL IVP ONE (06:23)
[2019-11-27] MEDS ORDERED: ONDANSETRON 4 MG/2 ML VIAL IVP ONE (06:23)
[2019-11-27] MEDS ORDERED: GLYCOPYRROLATE 1 MG/5 ML VIAL IVP ONE (06:23)
[2019-11-27] MEDS ORDERED: ePHEDrine 50 MG/ML VIAL IVP ONE (06:23)
[2019-11-27] MEDS ORDERED: PROPOFOL 200 MG/20 ML VIAL IVP ONE (06:23)
[2019-11-27] MEDS ORDERED: fentaNYL 100 MCG/2 ML VIAL IVP ONE (06:23)
[2019-11-27] MEDS ORDERED: LACTATED RINGERS 1,000 ML IV ONE ×2 (06:28→09:29)
[2019-11-27] MEDS ORDERED: CEFAZOLIN SODIUM IN 0.9 % NACL 2 GM/100 ML BAG IV ONE (06:35)
[2019-11-27] MEDS ORDERED: ceFAZolin 1 GM VIAL ONE (07:15)
[2019-11-27] MEDS ORDERED: LIDOCAINE 1%-EPI 1:100000 20 ML MDV ONE ×2 (07:15→08:40)
[2019-11-27] MEDS ORDERED: BUPIVACAINE 0.5% PF 30 ML VIAL ONE ×2 (07:15→08:40)
--- NOTE | 2019-11-27 07:21 | ANESTHESIA ---
Pre-Anesthesia VS, & Labs - Diagnosis left inguinal hernia - Procedure left inguinal hernia repair Vital Signs: Temp Pulse Resp BP Pulse Ox 36.2 C L 66 12 154/86 H 96 11/27/19 06:29 11/27/19 06:29 11/27/19 06:29 11/27/19 06:29 11/27/19 06:29 Height 5 ft 4 in Weight (kg) 91.2 kg Body Mass Index 35.2 - NPO >8 hours - Is Patient ?: No - Lab Results Current Lab Results: Laboratory Tests 11/27/19 06:55: POC Whole Bld Glucose 136 H Lab results reviewed: Yes Home Medications and Allergies Home Medications: Ambulatory Orders Cyanocobalamin (Vitamin B-12) [Vitamin B-12] 1,000 mg PO DAILY 11/17/19 Vit A/Vit C/Vit E/Zinc/Copper [Preservision Areds Softgel] 2 cap PO DAILY 11/17/19 prednisoLONE acetate [Prednisolone Acetate] 1 drops RIGHTEYE ONCE 11/17/19 Atorvastatin Calcium [Lipitor] 20 mg PO DAILY 08/06/12 Aspirin 81 mg PO DAILY 10/15/16 Amlodipine Besylate [Norvasc] 2.5 mg PO BID 10/27/19 Anastrozole 1 mg PO DAILY 10/27/19 Cholecalciferol [Vitamin D3] 75 mcg PO DAILY 10/27/19 Cyclosporine [Restasis] 2 drops EACHEYE DAILY 10/27/19 Levothyroxine Sodium [Synthroid] 50 mcg PO DAILY 10/27/19 Metformin HCl 500 mg PO BID 10/27/19 Omeprazole 20 mg PO DAILY 10/27/19 Telmisartan [Micardis] 80 mg PO BID 10/27/19 Ubidecarenone/Vit E Acet [Co Q-10 100 mg Softgel] 1 cap PO DAILY 10/27/19 Vitamin B Complex/Folic Acid [B-Complex Tablet] 0.4 mg PO DAILY 10/27/19 carvediloL [Carvedilol] 25 mg PO BID 10/27/19 Cyanocobalamin (Vitamin B-12) [Vitamin B-12] 1,000 mg PO DAILY 11/17/19 Vit A/Vit C/Vit E/Zinc/Copper [Preservision Areds Softgel] 2 cap PO DAILY 09/04/20 prednisoLONE acetate [Prednisolone Acetate] 1 drops RIGHTEYE ONCE 11/17/19 Allergies/Adverse Reactions: Allergies Allergy/AdvReac Type Severity Reaction Status Date / Time calcium carbonate Allergy Severe Anaphylaxis Verified 10/26/19 20:39 [From Os-[facility]] iodine Allergy Severe Rash Verified 10/26/19 20:39 Sulfa (Sulfonamide Allergy Rash Verified 10/27/19 04:12 Antibiotics) red dye AdvReac Unknown Verified 10/26/19 20:39 Anes History & Medical History - Anesthetic History Anesthesia Complications: reports: Post-Operative Nausea/Vomiting Family history of Anesthesia Complications: Denies Family history of Malignant Hyperthermia: Denies - Medical History Cardiovascular: reports: Hypertension, High cholesterol, Coronary artery disease (stent in 2006, no problems since. 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) Pulmonary: reports: Shortness of breath, Sleep apnea, CPAP use Gastrointestinal: reports: Other Urinary: reports: Other Neuro: reports: None Musculoskeletal: reports: Osteoarthritis Endocrine/Autoimmune: reports: Type 2 diabetes, HyPOthyroidism Skin: reports: Psoriasis, Rosacea Smoking Status: Never smoker - Surgical History General: Cholecystectomy, Colonoscopy Eyes Ears Nose Throat (EENT): Cataracts, Tonsil/Adenoidectomy, Other Cardiothoracic: Coronary stent Urologic: Bladder surgery Gynecologic: Dilation and currettage, Hysterectomy, Oophrectomy Exam General: Alert, Oriented x3, Cooperative, No acute distress Dental: Partials Upper Mouth Openin Fingerbreadth Neck Mobility: Normal Mallampati classification: II Respiratory: Lungs clear, Normal breath sounds, No respiratory distress, No accessory muscle use Cardiovascular: Regular rate, Normal S1, Normal S2, No murmurs Plan Anesthesia Type: General Consent for Procedure(s) Verified and Reviewed: Yes Code Status: Attempt Resuscitation ASA classification: 3-Severe systemic disease Is this case an emergency?: No
[2019-11-27] MEDS ORDERED: HYDROmorphone 0.5 MG/0.5 ML SYRINGE IVP PRN (07:22)
[2019-11-27] MEDS ORDERED: METOCLOPRAMIDE 10 MG/2 ML VIAL IVP PRN (07:22)
[2019-11-27] MEDS ORDERED: NALOXONE 0.4 MG/ML VIAL IVP PRN (07:22)
[2019-11-27] MEDS ORDERED: fentaNYL 100 MCG/2 ML VIAL IVP PRN (07:22)
[2019-11-27] MEDS ORDERED: ONDANSETRON 4 MG/2 ML VIAL IVP PRN ×2 (07:22→09:18)
[2019-11-27] MEDS ORDERED: ePHEDrine 50 MG/ML VIAL IVP PRN (07:22)
[2019-11-27] MEDS ORDERED: MORPHINE 2 MG/ML CARPUJECT IVP PRN (07:22)
[2019-11-27] MEDS ORDERED: ATROPINE ABBOJECT 1 MG/10 ML SYRINGE IVP PRN (07:22)
[2019-11-27] MEDS ORDERED: SCOPOLAMINE PATCH TOP ONE (07:25)
[2019-11-27] MEDS ORDERED: SODIUM CHLORIDE 0.9% 10 ML ONE (07:44)
[2019-11-27] MEDS ORDERED: LACTATED RINGERS 1,000 ML IV SCH (08:00)
[2019-11-27] MEDS ORDERED: SCOPOLAMINE PATCH TOP SCH (08:00)
[2019-11-27] MEDS ORDERED: LIDOCAINE 1%-EPI 1:100000 30 ML MDV SUBQ ONE ×2 (08:44)
[2019-11-27] MEDS ORDERED: BUPIVACAINE 0.5% PF 30 ML VIAL SUBQ ONE ×2 (08:44)
[2019-11-27] MEDS ORDERED: ceFAZolin 1 GM VIAL IR ONE (08:44)
--- NOTE | 2019-11-27 09:09 | OPERATIVE REPORT ---
Operative Report - General Procedure Date: 11/27/19 Planned Procedure: Left groin hernia repair Pre-Op Diagnosis: Left groin hernia with intermittent bowel obstruction Procedure Performed: Left femoral hernia repair Post Op Diagnosis: Large left femoral hernia containing a loop of small bowel - Procedure Note Primary Surgeon: Giuseppe Anesthesia Provider: MICHAEL Maldonado Anesthesia Technique: General LMA, Local Pathology: None Estimated Blood Loss (mL): 10 Indications: Intermittent small bowel obstruction Findings: Large left femoral hernia containing a loop of small bowel and surrounding preperitoneal fat. Complications: None apparent - Other Other Information/Narrative: After obtaining informed consent, the patient is brought to the operating room and placed in the supine position on the operating table. Following successful induction of general endotracheal anesthesia, appropriate padding of all bony prominences, and placement of appropriate monitors, the abdomen was prepped and draped in the standard surgical fashion. A timeout was held per scope protocol. All elements of the surgical safety checklist were followed before, during, and after the procedure. We began the procedure by infiltrating a mixture of local anesthetics medial to the anterior superior iliac spine on the left. This was done to create an ileal inguinal nerve block. We then selected a site for an incision in the leftt lower quadrant just superior and lateral to the left pubic tubercle. This area was anesthetized with additional local anesthetic and an incision was created here.The incision was carried down through the skin and subcutaneous tissue to reveal the fascia of the external oblique aponeurosis. Retractor was placed and the aponeurosis was opened in direction of its fibers. The hernia sac was quite large and was protruding much more inferiorly than would be expected in an inguinal hernia. 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 The defect contained a loop of normal-appearing small bowel. It is notable that mesh from the prior incontinence procedure was visible within this defect and attached to the mesentery of the small bowel. This was divided to free up the small bowel and the portion of the mesh attached to the small bowel was removed. The contents of the hernia were carefully reduced back into the abdominal cavity. We elected to repair the hernia with a large Prolene hernia system mesh implant. This was dipped in Ancef containing solution and then deployed into the defect. The posterior leaflet was straightened and flattened in the preperitoneal space. The inferior aspect of the anterior leaflet was then sewn to the pubic tubercle medially. Laterally it was tucked under the external beak aponeurosis. It was tacked to the external oblique muscle to prevent migration. The aponeurosis was reapproximated.Subcutaneous tissue and areolar tissue was then closed over the mesh still visible in the left groin. The wound was checked for hemostasis and irrigated with warm saline solution containing Ancef. It was aspirated free of all fluid and particulate matter. The external oblique aponeurosis was then closed with a running locking Vicryl suture Doug's fascia was closed with Vicryl suture and Monocryl stitches were placed in the skin. All sponge, needle, and instrument counts were correct at the conclusion of the case. The patient was allowed awaken from anesthesia without difficulty and taken to the postanesthesia care unit in good condition.
[2019-11-27] MEDS ORDERED: oxyCODONE 5 MG TABLET PO PRN (09:18)
[2019-11-27] MEDS ORDERED: ACETAMINOPHEN 325 MG TABLET PO PRN (09:18)
[2019-11-27] MEDS ORDERED: IBUPROFEN 600 MG TABLET PO PRN (09:18)
[2019-11-27 10:30] VITALS: BP 175/88
--- NOTE | 2019-11-27 11:23 | ANESTHESIA POST OP EVALUATION ---
Anesthesia Post Eval - Post Anesthesia Eval Vitals: Last Vital Signs Temp 36.2 C L 11/27/19 10:27 Pulse 57 L 11/27/19 10:27 Resp 20 11/27/19 10:27 BP 175/88 H 11/27/19 10:27 Pulse Ox 98 11/27/19 10:27 CV Function Including HR & BP: positive: Stable Pain Control: positive: Satisfactory Nausea & Vomiting: positive: Negative Mental Status: positive: Baseline Respiratory Status: Airway Patent Hydration Status: Satisfactory Anesthesia Complications: positive: None
== END 2019-11-27 06:23 | disposition home or self-care (01) ==
LOC: SDS 06:22
PROVIDERS: ATTEND Surgery
PROC: 0YU80JZ Supplement Left Femoral Region with Synthetic Substitute, Open Approach (ICD-10-PCS; principal; 2019-11-27 07:30)
DX: K41.31 Unilateral femoral hernia, with obstruction, without gangrene, recurrent (principal); I10 Essential (primary) hypertension; E78.5 Hyperlipidemia, unspecified; I25.10 Atherosclerotic heart disease of native coronary artery without angina pectoris; Z95.5 Presence of coronary angioplasty implant and graft; G47.30 Sleep apnea, unspecified; E11.9 Type 2 diabetes mellitus without complications; E03.9 Hypothyroidism, unspecified; K21.9 Gastro-esophageal reflux disease without esophagitis; Z79.82 Long term (current) use of aspirin
CPT/HCPCS: 49557; C1781; J0690; J3490; J7120

== ENCOUNTER 2019-11-30 11:12 | Emergency (ER) | payer MEDICARE, OTHER ==
--- NOTE | 2019-11-30 12:20 | ED Physician Documentation ---
History of Present Illness - Stated complaint Stated Complaint: GLF, FACIAL BRUISING - Chief complaint Chief Complaint: Trauma Hd/Nk - Additonal information Additional information: 79-year-old female presents to the emergency department for evaluation of facial trauma. She reports that last night at approximately 2:30 in the morning she got up to use the restroom. When she was returning she bumped into the closet door with her left face and fell forward into the door frame. She did not have any loss of consciousness but her had to help her get up. She has significant swelling around the left eye and left upper eyebrow with contusion. She has not had any vomiting but endorses feeling a little woozy and lightheaded. She is not anticoagulant though she does take a daily aspirin. She did undergo abdominal hernia repair with Dr. Chin on Wednesday. The incisions are intact and there is moderate bruising around the surgical incision that pt reports was there previous. she denies chest pain, neck pain, abdominal pain (other than the area aroudn the surgery). no dysuria, cough, fevers. Review of Systems Constitutional: reports: Reviewed and negative Eyes: denies: Loss of vision, Decreased vision, Photophobia, Discharge Ears: reports: Reviewed and negative Nose: reports: Reviewed and negative Throat: reports: Reviewed and negative Cardiac: reports: Reviewed and negative Respiratory: reports: Reviewed and negative GI: reports: Abdominal Pain (area around surgical incision), Nausea. denies: Vomiting, Constipation, Diarrhea : reports: Reviewed and negative Skin: reports: Abrasion (s) (left face) Musculoskeletal: reports: Back pain. denies: Neck pain, Extremity pain, Joint pain, Joint swelling, Pain with weight bearing Neurologic: reports: Head injury. denies: Generalized weakness, Focal weakness, Numbness, Difficulty speaking, Near syncope, Syncope, Seizure, Confused, Altered mental status, Headache, LOC Psychiatric: denies: Depressed PD PAST MEDICAL HISTORY - Past Medical History Cardiovascular: Hypertension, High cholesterol, Coronary artery disease (stent in 2006, no problems since. 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, Hysterectomy, Oophrectomy Cardiovascular: Coronary stent HEENT: Cataracts, Tonsil/Adenoidectomy, Other - Present Medications Home Medications: Ambulatory Orders Medication Instructions Recorded Confirmed Atorvastatin Calcium [Lipitor] 20 mg PO DAILY 08/06/12 11/27/19 Aspirin 81 mg PO DAILY 10/15/16 11/27/19 Amlodipine Besylate [Norvasc] 2.5 mg PO BID 10/27/19 11/27/19 Anastrozole 1 mg PO DAILY 10/27/19 11/27/19 Cholecalciferol [Vitamin D3] 75 mcg PO DAILY 10/27/19 11/27/19 Cyclosporine [Restasis] 2 drops EACHEYE DAILY 10/27/19 11/27/19 Levothyroxine Sodium [Synthroid] 50 mcg PO DAILY 10/27/19 11/27/19 Metformin HCl 500 mg PO BID 10/27/19 11/27/19 Omeprazole 20 mg PO DAILY 10/27/19 11/27/19 Telmisartan [Micardis] 80 mg PO BID 10/27/19 11/27/19 Ubidecarenone/Vit E Acet [Co Q-10 1 cap PO DAILY 10/27/19 11/27/19 100 mg Softgel] Vitamin B Complex/Folic Acid 0.4 mg PO DAILY 10/27/19 11/27/19 [B-Complex Tablet] carvediloL [Carvedilol] 25 mg PO BID 10/27/19 11/27/19 Cyanocobalamin (Vitamin B-12) 1,000 mg PO DAILY 11/17/19 11/27/19 [Vitamin B-12] Vit A/Vit C/Vit E/Zinc/Copper 2 cap PO DAILY 11/17/19 11/27/19 [Preservision Areds Softgel] prednisoLONE acetate [Prednisolone 1 drops RIGHTEYE ONCE 11/17/19 11/27/19 Acetate] Ondansetron Odt [Zofran Odt] 4 mg TL Q6H PRN #10 tablet 11/27/19 oxyCODONE [Roxicodone] 5 mg PO Q4-6H PRN #14 tablet 11/27/19 - Allergies Allergies/Adverse Reactions: Allergies Allergy/AdvReac Type Severity Reaction Status Date / Time calcium carbonate Allergy Severe Anaphylaxis Verified 11/30/19 11:21 [From [facility]] iodine Allergy Severe Rash Verified 11/30/19 11:21 Sulfa (Sulfonamide Allergy Rash Verified 11/30/19 11:21 Antibiotics) red dye AdvReac Unknown Verified 11/30/19 11:21 - Social History Does the pt smoke?: No Smoking Status: Never smoker Does the pt drink ETOH?: No Does the pt have substance abuse?: No - Immunizations Immunizations are current?: Yes - POLST Patient has POLST: No PD ED PE EXPANDED - General General: Alert, No acute distress - HEENT HEENT: PERRL, EOMI, Left frontal sinus TTP, Left maxillary sinus TTP, Moist mucous membranes, Other (Significant swelling ecchymosis and contusion around left eye and left forehead. Extraocular movements are intact. Vision preserved without any visual field deficits. No hyphema subconjunctival hemorrhage noted of either eye). No: Nasal congestion, Rhinorrhea - Eyes Eyes: PERRL, Normal accommodation, EOMI. No: Subconj hemorrhage, Hyphema - Neck Neck: Supple w/out meningeal sx. No: Stiff neck, No tenderness - Cardiac Cardiac: Regular Rate, Radial strong equal, Pedal strong equal, Cap refill < 2 sec. No: Murmur Present - Respiratory Respiratory: Clear to ausultation lanie. No: Distress, Labored - Abdomen Abdomen: Normal Bowel sounds, Bruising (Bruising and Surgical incisions noted left lower quadrant of abdomen), Surgical scars - Back Back: Normal exam. No: Vertebral tenderness, Soft tissue tenderness - Derm Derm: Normal color, Warm and dry, Abrasion (s), Bruising (left periorbital region/forehead) - Extremities Extremities: Normal. No: Deformity, Tenderness - Neuro Neuro: Alert and Oriented X 3, CNII-XII intact, PERRL, Cerebellar nl, Normal finger nose, Normal speech. No: Nystagmus - GCS Eye Opening: Spontaneous Motor: Obeys Commands Verbal: Oriented Total: 15 Results - Vitals Vitals: Vital Signs - 24 hr 11/30/19 11:14 Temperature 36.9 C Heart Rate 64 Respiratory 17 Rate Blood Pressure 151/84 H O2 Saturation 93 Oxygen O2 Source Room air - Rads (name of study) CT max/fac Radiology: Final report received (Scalp contusion left frontal region without underlying fracture. Several scattered maxillary sinus mucous retention cysts are incidentally noted. No osseous traumatic injury is found.) CT head Radiology: Final report received (no acute intracranial hemorrhage or mass- effect. Small left frontal and right parietal scalp hematomas are seen. There is no skull fracture.) PD MEDICAL DECISION MAKING - ED course Complexity details: reviewed results, re-evaluated patient, considered differential, d/w patient, d/w family ED course: 79-year-old female presents to the emergency department for evaluation of facial trauma after a ground-level fall last night. She has marked contusion and ecchymosis surrounding the left eye. Her vision is preserved. CT maxillofacial as well as CT of the brain does not show any skull fracture or traumatic brain injury. Patient is neurologically intact her pain is controlled. Stable for discharge home Departure - Departure Disposition: 01 Home, Self Care Clinical Impression: Fall from ground level Scalp hematoma Qualifiers: Encounter type: initial encounter Qualified Code(s): S00.03XA - Contusion of scalp, initial encounter Periorbital contusion of left eye Qualifiers: Encounter type: initial encounter Qualified Code(s): S05.12XA - Contusion of eyeball and orbital tissues, left eye, initial encounter Condition: Stable Record reviewed to determine appropriate education?: Yes Instructions: ED Hematoma Comments: Nataliya the CT of both your brain and the bones in your face do not show anything broken. There is no bleeding or bruising within the brain. The bruising around your eyes called a hematoma. This will likely take 2 weeks to fully resolve. I do recommend that you place ice to help reduce swelling and improve pain. Please use your pain medicine at home very cautiously as it does put you at risk for falls. If you develop uncontrolled vomiting have fevers, slurred speech arm or leg weakness please return to the emergency department
--- NOTE | 2019-11-30 13:48 | CT Report ---
PROCEDURE: MAXILLOFACIAL WO INDICATIONS: r/o orbital and facial fx (left eye) TECHNIQUE: Noncontrast 1.5 mm thick axial images acquired from the mandible through the frontal sinuses, with co bryanna and sagittal reformatting. For radiation dose reduction, the following was used: automated ex posure control, adjustment of mA and/or kV according to patient size. COMPARISON: Head CT same day.. FINDINGS: Image quality: Excellent. Bones and teeth: Orbital aguirre are intact. Sinus aguirre show no fracture or deformity. Nasal bones and septum are intact. Visualized portions of the mandible demonstrate no fractures or subluxation. Zygomatic arches are intact. Pterygoid plates are intact. Visualized portions of the skull base an d auditory canals are intact. Left maxillary incisor absent, chronicity uncertain. Sinuses: Paranasal sinuses are aerated, without fluid levels, mucosal thickening, or mucoceles. Mas toid air cells are aerated. Several mildly lobulated mucous retention cysts are seen within the maxi llary sinuses greater on the left than the right inferiorly. No sinus air-fluid level is found. Soft tissues: No edema, masses, or fluid collections on the right and there is a scalp contusion in the left frontal region without underlying fracture. No enlarged lymph nodes. No soft tissue lacera tions or debris. Vascular: Visualized vascular structures appear normal in the absence of contrast. Bony vascular fo ramina and canals are intact. IMPRESSION: Scalp contusion left frontal region without underlying fracture. Several scattered maxil yash sinus mucous retention cysts are incidentally noted. No osseous traumatic injury is found at thi s time. Absent left maxillary incisor, chronicity uncertain. Reviewed by: Haris Mast MD on 11/30/2019 1:46 PM PDT Approved by: Haris Mast MD on 11/30/2019 1:46 PM PDT Station ID: [id number]
--- NOTE | 2019-11-30 13:57 | CT Report ---
PROCEDURE: HEAD WO INDICATIONS: GLF; facial trauma. r/o TBI TECHNIQUE: Noncontrast 4.5 mm thick angled axial sections acquired from the foramen magnum to the vertex. For r adiation dose reduction, the following was used: automated exposure control, adjustment of mA and/or kV according to patient size. COMPARISON: None. FINDINGS: Image quality: Excellent. CSF spaces: Basal cisterns are patent. No extra-axial fluid collections. Ventricles are normal in size and shape. Brain: No midline shift. No intracranial masses or hemorrhage. Aburto-white matter interface is norm al. Skull and face: Calvarium is intact, without suspicious lesions. A left frontal scalp hematoma is s een. An additional small scalp hematoma is seen in the right parietal region. The facial structures a re better evaluated on dedicated maxillofacial CT performed on the same day. Sinuses: Visualized sinuses and mastoids are clear. IMPRESSION: 1. No acute intracranial hemorrhage or mass effect. 2. Small left frontal and right parietal scalp hematomas are seen. There is no skull fracture. Reviewed by: Jeovanny William MD on 11/30/2019 1:56 PM PDT Approved by: Jeovanny William MD on 11/30/2019 1:56 PM PDT Station ID: [id number]
[2019-11-30 14:29] VITALS: BP 148/79
== END 2019-11-30 14:31 | disposition home or self-care (01) ==
LOC: ED 11:12
DX: S05.12XA Contusion of eyeball and orbital tissues, left eye, initial encounter (principal); W01.198A Fall on same level from slipping, tripping and stumbling with subsequent striking against other object, initial encounter; Y93.01 Activity, walking, marching and hiking; Y92.009 Unspecified place in unspecified non-institutional (private) residence as the place of occurrence of the external cause; E11.9 Type 2 diabetes mellitus without complications
CPT/HCPCS: 70450; 70486; 99284

== ENCOUNTER 2019-12-05 15:40 | Outpatient (CLI) | payer MEDICARE, OTHER ==
--- NOTE | 2019-12-06 13:02 | XRAY Report ---
PROCEDURE: Lumbar Spine Complete INDICATIONS: LOW BACK PAIN TECHNIQUE: 3 views of the lumbar spine were acquired. COMPARISON: None. FINDINGS: Bones: 5 [id number] vertebrae are present. Rudimentary S1-S2 disc noted. There is trace L2-L3 and L3-L4 retrolisthesis. Approximately 90 degrees of convex left lumbar spine curvature. Loss of height noted in the L1 vertebral body compatible with compression fracture of indeterminate age. L1 compression fracture results in approximately 75% loss of normal anterior vertebral body height. There is approximately 20 degrees of kyphosis associated w ith the L1 compression fracture. No suspicious bony lesions. Moderate L3-L4 degenerative disc disease . Mild L1-L2, L2-L3, L4-L5 and L5-S1 degenerative disc disease. Mild L4-L5 and L5-S1 facet atrophy. Soft tissues: Overlying bowel gas pattern is normal. No suspicious soft tissue calcifications. IMPRESSION: 1. L1 compression fracture of indeterminate age. 2. Multilevel degenerative disease. 3. Multilevel facet arthropathy. Reviewed by: Tatum Lopez MD, PhD on 12/06/2019 1:01 PM PDT Approved by: Tatum Lopez MD, PhD on 12/06/2019 1:01 PM PDT Station ID: [id number]
== END 2019-12-05 15:41 | disposition home or self-care (01) ==
LOC: DI 15:40
PROVIDERS: ATTEND Nurse Practitioner Family
DX: M51.36 Other intervertebral disc degeneration, lumbar region (principal); M48.56XA Collapsed vertebra, not elsewhere classified, lumbar region, initial encounter for fracture
CPT/HCPCS: 72110

== ENCOUNTER 2019-12-16 16:32 | Outpatient (CLI) | payer MEDICARE, OTHER ==
--- NOTE | 2019-12-18 16:39 | MRI Report ---
PROCEDURE: Lumbar Spine W/O INDICATIONS: WEDGE COMP FRACT OF L1 TECHNIQUE: Noncontrast sagittal T1 spin echo and T2 fast echo, sagittal STIR, axial T1 and T2 fast spin echo thr ough the lumbar spine. In cases with scoliosis, additional coronal T2 fast spin echo may be performe d. COMPARISON: X-ray lumbar spine 05/06/2019 FINDINGS: Image quality: Excellent. Alignment and Curvature: There is normal bony alignment. 5 nonrib-bearing lumbar vertebral bodies a re present. Rudimentary S1-S2 disc is noted. For purposes of this examination, and in keeping with pr ior exam, vertebral bodies are labeled one through 5. Bone Marrow: Marrow is of normal overall signal. There is a compression deformity at L1 with the ant erior midportion most severely affected greater than 85% compression. There is increased T2 signal id entified within this region. Kyphosis is associated with a fracture of approximately 20 to 25 degrees . There is trace retrolisthesis of L3 on L4 as well as L2 on L3. Spinal Cord: Conus medullaris terminates at the L2 level. Visualized cord demonstrates normal signa l and size. 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 Paraspinous Soft Tissues: No paravertebral masses. Discs: Moderate to severe desiccation is present throughout the lumbar spine. T12-L1: There is disc bulge/partial retropulsion of posterior element of L1 fracture at this level c ausing mild to moderate spinal stenosis. Mild right foraminal narrowing. L1-L2: Minimal disc bulge without spinal stenosis. No foraminal narrowing. L2-L3: Mild disc bulge without spinal stenosis. Mild bilateral, left greater than right foraminal narrowing with facet and ligamentum flavum hypertrophy. L3-L4: Mild disc bulge with moderate spinal stenosis. Moderate right and mild left foraminal narrow ing with facet and ligamentum flavum hypertrophy. L4-L5: Mild disc bulge with mild to moderate spinal stenosis. Moderate bilateral foraminal narrowin g with facet and ligamentum flavum hypertrophy. L5-S1: Mild disc bulge with moderate spinal stenosis. Severe right and moderate to severe left fora shania narrowing with nerve root flattening on the right. IMPRESSION: 1. Significant compression referring with mild retropulsion kyphosis at L1 as above. Given increased STIR signal, it is considered to be subacute. 2. Multilevel spinal stenosis most severe at L3-4 and L5-S1 secondary to disc bulge with contributing effect of facet/ligamentum flavum arthropathy. 3. Multilevel foraminal narrowing most severe at L5-S1, secondary to facet arthropathy. Reviewed by: Glory Rojas MD on 12/18/2019 4:37 PM PDT Approved by: Glory Rojas MD on 12/18/2019 4:37 PM PDT Station ID: [id number]
== END 2019-12-16 16:33 | disposition home or self-care (01) ==
LOC: DI 16:32
PROVIDERS: ATTEND Family Medicine
DX: S32.010A Wedge compression fracture of first lumbar vertebra, initial encounter for closed fracture (principal); M51.27 Other intervertebral disc displacement, lumbosacral region; M48.07 Spinal stenosis, lumbosacral region
CPT/HCPCS: 72148

== ENCOUNTER 2020-04-08 07:54 | Outpatient (CLI) | payer MEDICARE, OTHER ==
[2020-04-08 13:09] LABS: ALBUMIN 4.2 g/dL (3.2-5.5); ALBUMIN/GLOBULIN RATIO 1.5 (1.0-2.2); ALKALINE PHOSPHATASE 63 IU/L (42-121); ALT ALANINE AMINOTRANSFERASE 16 IU/L (10-60); AST ASPARTATE AMINOTRANSFERASE 19 IU/L (10-42); BILIRUBIN,TOTAL 0.8 mg/dL (0.2-1.0); BUN - BLOOD UREA NITROGEN 12 mg/dL (6-20); CALCIUM 9.8 mg/dL (8.5-10.3); CARBON DIOXIDE - CO2 30 mmol/L (21-32); CHLORIDE 101 mmol/L (101-111); CHOL/HDL RATIO 4.3 (<4.4); CHOLESTEROL 168 mg/dL; CREATININE 0.7 mg/dL (0.4-1.0); GLUCOSE 140 mg/dL (70-100); HDL CHOLESTEROL 39 mg/dL; LDL CHOLESTEROL,CALCULATED 97 mg/dL; LDL/HDL RATIO 2.5 (<4.4); VLDL CHOLESTEROL 32 mg/dL
[2020-04-08 13:40] LABS: CREATININE,URINE 56.7 mg/dL; MICROALBUM/CREATININE RATIO,UR 12.3 ug/mg (<30.0); MICROALBUMIN,URINE 0.7 mg/dL (0-300.0)
== END 2020-04-08 23:59 | disposition home or self-care (01) ==
LOC: LAB.WCP 07:54
PROVIDERS: ATTEND Family Medicine
DX: E78.5 Hyperlipidemia, unspecified (principal); E11.9 Type 2 diabetes mellitus without complications; I10 Essential (primary) hypertension
CPT/HCPCS: 36415; 80048; 80053; 80061; 82043; 82570; 83036; 83721

== ENCOUNTER 2020-08-13 08:00 | Outpatient (CLI) | payer MEDICARE, OTHER ==
[2020-08-13 13:06] LABS: BASOPHILS # (AUTO) 0.1 10^3/uL (0.0-0.1); BASOPHILS % (AUTO) 0.9 %; EOSINOPHILS # (AUTO) 0.2 10^3/uL (0.0-0.7); EOSINOPHILS % (AUTO) 3.2 %; HCT - HEMATOCRIT 41.9 % (37.0-47.0); HGB - HEMOGLOBIN 13.3 g/dL (12.0-16.0); LYMPHOCYTES # (AUTO) 1.1 10^3/uL (1.5-3.5); LYMPHOCYTES % (AUTO) 20.3 %; MEAN CORPUSCULAR HEMOGLOBIN 30.9 pg (27.0-31.0); MEAN CORPUSCULAR HGB CONC 31.7 g/dL (32.0-36.0); MEAN CORPUSCULAR VOLUME 97.4 fL (81.0-99.0); MEAN PLATELET VOLUME 10.2 fL (7.9-10.8); MONOCYTES # (AUTO) 0.5 10^3/uL (0.0-1.0); MONOCYTES % (AUTO) 8.9 %; NEUTROPHILS # (AUTO) 3.7 10^3/uL (1.5-6.6); NEUTROPHILS % (AUTO) 66.5 %; PLT - PLATELET COUNT 235 10^3/uL (130-450); RED CELL DISTRIBUTION WIDTH 13.1 % (12.0-15.0); WHITE BLOOD COUNT 5.6 x10^3/uL (4.8-10.8)
[2020-08-13 13:56] LABS: CREATININE,URINE 75.1 mg/dL; MICROALBUM/CREATININE RATIO,UR 25.3 ug/mg (<30.0); MICROALBUMIN,URINE 1.9 mg/dL (0-300.0)
[2020-08-13 13:59] LABS: THYROID STIMULATING HORMONE 2.29 uIU/mL (0.34-5.60)
[2020-08-13 14:04] LABS: ALBUMIN/GLOBULIN RATIO 1.5 (1.0-2.2); ALKALINE PHOSPHATASE 41 IU/L (42-121); ALT ALANINE AMINOTRANSFERASE 16 IU/L (10-60); AST ASPARTATE AMINOTRANSFERASE 18 IU/L (10-42); BILIRUBIN,TOTAL 0.8 mg/dL (0.2-1.0); BUN - BLOOD UREA NITROGEN 13 mg/dL (6-20); CALCIUM 9.2 mg/dL (8.5-10.3); CARBON DIOXIDE - CO2 26 mmol/L (21-32); CHLORIDE 105 mmol/L (101-111); CHOLESTEROL 158 mg/dL; CREATININE 0.6 mg/dL (0.4-1.0); GFR - MDRD 97 (>89); GLUCOSE 134 mg/dL (70-100); HDL CHOLESTEROL 40 mg/dL; LDL CHOLESTEROL,CALCULATED 97 mg/dL; LDL/HDL RATIO 2.4 (<4.4); POTASSIUM 4.2 mmol/L (3.5-5.0); SODIUM 138 mmol/L (135-145); TOTAL PROTEIN 6.6 g/dL (6.7-8.2); TRIGLYCERIDES 105 mg/dL; VLDL CHOLESTEROL 21 mg/dL
[2020-08-13 14:34] LABS: ESTIMATED AVERAGE GLUCOSE 123 mg/dL (70-100); HEMOGLOBIN A1c% 5.9 % (4.27-6.07)
== END 2020-08-13 23:59 | disposition home or self-care (01) ==
LOC: LAB.WCP 08:00
PROVIDERS: ATTEND Family Medicine
DX: I10 Essential (primary) hypertension (principal); E78.5 Hyperlipidemia, unspecified; E11.9 Type 2 diabetes mellitus without complications
CPT/HCPCS: 36415; 80053; 80061; 82043; 82570; 83036; 83721; 84443; 85025

== ENCOUNTER 2020-09-30 09:44 | Outpatient (CLI) | payer MEDICARE, OTHER ==
--- NOTE | 2020-10-01 13:46 | Mammography Report ---
BILATERAL DIGITAL SCREENING MAMMOGRAM 3D/2D: 09/30/2020 CLINICAL: Routine screening. Comparison is made to exams dated: 09/25/2019 mammogram, 12/14/2018 mammogram, 06/02/2018 mammogram - [facility], 10/06/2017 localization, 10/06/2017 specimen, [facility] There are scattered fibroglandular elements in both breasts. There is a new 0.9 cm irregular asymmetry in the left breast at 3 o'clock anterior depth. This was n ot seen on the prior mammogram. No other significant masses, calcifications, or other findings are seen in either breast. IMPRESSION: INCOMPLETE: NEEDS ADDITIONAL IMAGING EVALUATION The new 0.9 cm irregular asymmetry in the left breast is indeterminate. Additional views with possib le ultrasound are recommended. This exam was interpreted at Station ID: [id number]. NOTE: For mammograms, a report in lay terms will be sent to the patient. Approximately 15% of breast malignancies will not be visualized mammographically. In the management of a palpable breast mass, a negative mammogram must not discourage biopsy of a clinically suspicious lesion. Electronically Signed By: Pedro Rodriguez acr/:09/30/2020 10:50:04 ACR BI-RADS Category 0: Incomplete 3340F PARENCHYMAL PATTERN: (A) - The breast(s) demonstrate(s) scattered fibroglandular densities. BI-RADS CATEGORY: (0) - 0 Mammo and [place] [id number] Immediate follow-up LATERALITY: (L)
== END 2020-09-30 09:45 | disposition home or self-care (01) ==
LOC: DI 09:44
DX: Z12.31 Encounter for screening mammogram for malignant neoplasm of breast (principal); R92.8 Other abnormal and inconclusive findings on diagnostic imaging of breast

== ENCOUNTER 2020-10-23 09:33 | Outpatient (CLI) | payer MEDICARE, OTHER ==
--- NOTE | 2020-10-24 15:50 | Ultrasound Report ---
LIMITED ULTRASOUND OF LEFT BREAST: 10/23/2020 CLINICAL: Patient returns today to evaluate a focal asymmetry in the left breast. Comparison is made to exams dated: 10/23/2020 mammogram, 09/30/2020 mammogram, 09/25/2019 mammogram, mammogram, 06/02/2018 mammogram - [facility], and 10/06/[address] [facility]. Color flow ultrasound of the left breast 3 o'clock region was performed. Aburto scale images of the r eal-time examination were reviewed. There is a 1.3 cm x 0.9 cm x 0.7 cm taller than wide irregular mass with a spiculated margin in the l eft breast at 2 o'clock anterior depth. This irregular mass is hypoechoic with posterior acoustic sh adowing. Color flow imaging demonstrates that there is increased vascularity. IMPRESSION: HIGHLY SUGGESTIVE OF MALIGNANCY The 1.3 cm x 0.9 cm x 0.7 cm mass in the left breast is highly suggestive of malignancy. An ultrasou nd guided biopsy is recommended. This exam was interpreted at Station ID: [id number]. Electronically Signed By: Hua Lucia M.D. jr/:10/23/2020 12:17:38 Ultrasound BI-RADS: 5 Highly suggestive of malignancy BI-RADS CATEGORY: (5) - 5 None [id number] Immediate follow-up LATERALITY: ()
--- NOTE | 2020-10-24 15:50 | Mammography Report ---
UNILATERAL LEFT DIGITAL DIAGNOSTIC MAMMOGRAM 3D/2D: 10/23/2020 CLINICAL: Patient returns today to evaluate a focal asymmetry in the left breast. Comparison is made to exams dated: 09/30/2020 mammogram, 09/25/2019 mammogram, 12/14/2018 mammogram, mammogram - [facility], 10/06/2017 specimen, and 10/06/2017 mammogram - [facility]. There are scattered fibroglandular elements in left breast. There is a 0.9 cm mass with a spiculated margin in the left breast at 3 o'clock anterior depth. Ther e is architectural distortion associated with the mass. No other significant masses or calcifications are seen in the breast. IMPRESSION: INCOMPLETE: NEEDS ADDITIONAL IMAGING EVALUATION The 0.9 cm mass in the left breast is indeterminate. An ultrasound is recommended and will follow th is examination. This exam was interpreted at Station ID: [id number]. NOTE: For mammograms, a report in lay terms will be sent to the patient. Approximately 15% of breast malignancies will not be visualized mammographically. In the management of a palpable breast mass, a negative mammogram must not discourage biopsy of a clinically suspicious lesion. Electronically Signed By: Hua Lucia M.D. jr/:10/23/2020 12:16:15 ACR BI-RADS Category 0: Incomplete 3340F PARENCHYMAL PATTERN: (A) - The breast(s) demonstrate(s) scattered fibroglandular densities. BI-RADS CATEGORY: (0) - 0 Unspecified - other recall n/a LATERALITY: (B)
== END 2020-10-23 09:34 | disposition home or self-care (01) ==
LOC: DI 09:33
PROVIDERS: ATTEND Family Medicine
DX: R92.8 Other abnormal and inconclusive findings on diagnostic imaging of breast (principal)

== ENCOUNTER 2020-10-31 08:00 | Outpatient (CLI) | payer MEDICARE, OTHER ==
[~2020-10-31 08:00] MED LIST: BUFFERED LIDOCAINE 10 ML SYRINGE ONE
[2020-10-31] MEDS ORDERED: BUFFERED LIDOCAINE 10 ML SYRINGE IU ONE (12:04)
--- NOTE | 2020-11-01 09:03 | Mammography Report ---
UNILATERAL LEFT DIGITAL DIAGNOSTIC MAMMOGRAM 3D/2D: 10/31/2020 CLINICAL: Post left breast ultrasound biopsy, clip placment imaging. Comparison is made to exams dated: 10/23/2020 ultrasound, 10/23/2020 mammogram, 09/30/2020 mammogram, mammogram, 12/14/2018 mammogram, and 06/02/2018 mammogram - [facility]. The re are scattered fibroglandular elements in left breast. There is a marker clip in the appropriate position in the left breast at 3 o'clock anterior depth. IMPRESSION: POST PROCEDURE MAMMOGRAM FOR MARKER PLACEMENT There was a successful marker clip placement in the left breast anterior depth. This exam was interpreted at Station ID: [id number]. NOTE: For mammograms, a report in lay terms will be sent to the patient. Approximately 15% of breast malignancies will not be visualized mammographically. In the management of a palpable breast mass, a negative mammogram must not discourage biopsy of a clinically suspicious lesion. Electronically Signed By: Tony hayden/yas:10/31/2020 14:44:57 ACR BI-RADS Category Post-procedure mammogram for marker placement PARENCHYMAL PATTERN: (A) - The breast(s) demonstrate(s) scattered fibroglandular densities. BI-RADS CATEGORY: () - Biopsy follow-up [id number] Immediate follow-up LATERALITY: (B)
--- NOTE | 2020-11-05 16:08 | Ultrasound Report ---
ULTRASOUND GUIDED BIOPSY LEFT BREAST WITH MARKING DEVICE INSERTED AND POST DIGITAL MAMMOGRAPHIC AND U LTRASOUND IMAGIN10/31/2020 CLINICAL: Left breast mass. PATIENT CONSENT: Risks (minor bleeding, infection, vasovagal reaction and repeat procedure), benefits and alternatives were explained to the patient and written informed consent was obtained. Correlation is made to exams dated: 10/31/2020 mammogram, 10/23/2020 ultrasound, 10/23/2020 mammogram, 09/30/2020 mammogram, 09/25/2019 mammogram, and 12/14/2018 mammogram - [facility]. An ultrasound guided biopsy using real-time ultrasound was performed for the 1.3 cm x 0.9 cm x 0.7 cm abnormality located in the left breast at 2 o'clock anterior depth. The skin was prepped in the usu al manner. A biopsy needle was placed adjacent to the abnormality under ultrasound guidance. Once t he needle was documented to be in the correct location, a specimen was obtained using an automated bi opsy gun. Clip was placed at the site of biopsy.The specimen was sent to the laboratory for patholog ical analysis. IMPRESSION: ULTRASOUND GUIDED BIOPSY MALIGNANT Ultrasound guided biopsy of the 1.3 cm x 0.9 cm x 0.7 cm abnormality in the left breast anterior dept h was performed. Pathology indicates malignant invasive ductal carcinoma. Pathology results are concordant with imagin g findings. A surgical/oncologic consultation is recommended. This exam was interpreted at Station ID: [id number]. Tony hayden,ar/:11/05/2020 14:14:18 BI-RADS CATEGORY: () - Unspecified - other recall n/a LATERALITY: (B)
== END 2020-10-31 08:01 | disposition home or self-care (01) ==
LOC: DI 08:00
PROVIDERS: ATTEND Family Medicine
DX: C50.412 Malignant neoplasm of upper-outer quadrant of left female breast (principal); Z17.0 Estrogen receptor positive status [ER+]
CPT/HCPCS: 19083

== ENCOUNTER 2020-12-02 07:43 | Day surgery (SDC) | payer MEDICARE, OTHER ==
[2020-12-02] MEDS ORDERED: CEFAZOLIN SODIUM IN 0.9 % NACL 2 GM/100 ML BAG IV ONE (10:13)
--- NOTE | 2020-12-02 11:18 | ANESTHESIA ---
Pre-Anesthesia VS, & Labs - Diagnosis Recurrent L breast CA - Procedure L skin-sparing mastectomy with simple sentinel node biopsy Vital Signs: Temp Pulse Resp BP Pulse Ox 36.1 C L 56 L 16 148/103 H 98 12/02/20 08:10 12/02/20 08:10 12/02/20 08:10 12/02/20 08:10 12/02/20 08:10 Height: 5 ft 4 in Weight (kg): 83.7 kg Body Mass Index: 31.6 BMI Classification: Obese - NPO >8 hours - Is Patient ?: No - Lab Results Current Lab Results: Laboratory Tests 12/02/20 08:17: POC Whole Bld Glucose 135 H Lab results reviewed: Yes Home Medications and Allergies Home Medications: Ambulatory Orders Alendronate [Fosamax] 70 mg PO Q7D 11/28/20 Calcium Carbonate [Calcium] 1,200 mg PO BID 11/28/20 Lysine [l-Lysine] 500 mg PO DAILY 11/28/20 Atorvastatin Calcium [Lipitor] 10 mg PO QPM 08/06/12 Aspirin 81 mg PO DAILY 10/15/16 Amlodipine Besylate [Norvasc] 2.5 mg PO BID 10/27/19 Anastrozole 1 mg PO DAILY 10/27/19 Cholecalciferol [Vitamin D3] 4,000 unit PO DAILY 10/27/19 Levothyroxine Sodium [Synthroid] 50 mcg PO DAILY 10/27/19 Omeprazole 20 mg PO DAILY 10/27/19 Telmisartan [Micardis] 80 mg PO BID 10/27/19 Ubidecarenone/Vit E Acet [Co Q-10 100 mg Softgel] 1 cap PO DAILY 10/27/19 carvediloL [Carvedilol] 25 mg PO BID 10/27/19 cycloSPORINE [Restasis] 2 drops EACHEYE BID 10/27/19 Cyanocobalamin (Vitamin B-12) [Vitamin B-12] 2,500 mg PO DAILY 11/17/19 Vit A/Vit C/Vit E/Zinc/Copper [Preservision Areds Softgel] 1 cap PO BID 11/17/19 Alendronate [Fosamax] 70 mg PO Q7D 11/28/20 Calcium Carbonate [Calcium] 1,200 mg PO BID 11/28/20 Lysine [l-Lysine] 500 mg PO DAILY 11/28/20 Allergies/Adverse Reactions: Allergies Allergy/AdvReac Type Severity Reaction Status Date / Time calcium carbonate Allergy Severe Anaphylaxis Verified 11/28/20 09:29 [From [facility]] iodine Allergy Severe Rash Verified 11/30/19 11:21 shellfish derived Allergy Unknown Verified 11/28/20 09:29 Sulfa (Sulfonamide Allergy Rash Verified 11/30/19 11:21 Antibiotics) red dye AdvReac Unknown Verified 11/30/19 11:21 Anes History & Medical History - Anesthetic History Anesthesia Complications: reports: No previous complications Family history of Anesthesia Complications: Denies Family history of Malignant Hyperthermia: Denies - Medical History Cardiovascular: reports: Hypertension, High cholesterol, Coronary artery disease Pulmonary: reports: Shortness of breath, Sleep apnea, CPAP use Gastrointestinal: reports: Other Urinary: reports: Other Neuro: reports: None Musculoskeletal: reports: Osteoarthritis, Osteoporosis Endocrine/Autoimmune: reports: Type 2 diabetes, HyPOthyroidism Skin: reports: Psoriasis, Rosacea Smoking Status: Never smoker - Surgical History General: reports: Cholecystectomy, Colonoscopy Eyes Ears Nose Throat (EENT): reports: Cataracts, Tonsil/Adenoidectomy, Other Cardiothoracic: reports: Coronary stent Urologic: reports: Bladder surgery Gynecologic: reports: Dilation and currettage, Hysterectomy, Oophrectomy Exam General: Alert, Oriented x3, Cooperative Dental: Partials Upper Mouth Openin Fingerbreadth Neck Mobility: Normal Mallampati classification: II Respiratory: Lungs clear Cardiovascular: Regular rate Neurological: Normal speech Mental/Cognitive Status: Alert/Oriented X3, Normal for patient Cognitive Status: Within normal limits Plan Anesthesia Type: General Consent for Procedure(s) Verified and Reviewed: Yes Code Status: Attempt Resuscitation ASA classification: 3-Severe systemic disease Is this case an emergency?: No
[2020-12-02] MEDS ORDERED: METOCLOPRAMIDE 10 MG/2 ML VIAL IVP PRN (11:27)
[2020-12-02] MEDS ORDERED: HYDROmorphone 0.5 MG/0.5 ML SYRINGE IVP PRN (11:27)
[2020-12-02] MEDS ORDERED: MORPHINE 2 MG/ML CARPUJECT IVP PRN (11:27)
[2020-12-02] MEDS ORDERED: ONDANSETRON 4 MG/2 ML VIAL IVP PRN ×2 (11:27→15:08)
[2020-12-02] MEDS ORDERED: fentaNYL 100 MCG/2 ML VIAL IVP PRN (11:27)
[2020-12-02] MEDS ORDERED: NALOXONE 0.4 MG/ML VIAL IVP PRN (11:27)
[2020-12-02] MEDS ORDERED: ATROPINE ABBOJECT 1 MG/10 ML SYRINGE IVP PRN (11:27)
[2020-12-02] MEDS ORDERED: ePHEDrine 50 MG/ML VIAL IVP PRN (11:27)
[2020-12-02] MEDS ORDERED: LACTATED RINGERS 1,000 ML IV SCH (12:00)
[2020-12-02] MEDS ORDERED: fentaNYL 100 MCG/2 ML VIAL ONE (12:29)
[2020-12-02] MEDS ORDERED: PROPOFOL 200 MG/20 ML VIAL IVP ONE (12:29)
[2020-12-02] MEDS ORDERED: KETOROLAC 30 MG/ML VIAL ONE (12:29)
[2020-12-02] MEDS ORDERED: LIDOCAINE-MPF 2% 5 ML VIAL ONE (12:29)
[2020-12-02] MEDS ORDERED: DEXAMETHASONE 4 MG/ML VIAL ONE (12:29)
[2020-12-02] MEDS ORDERED: BUPIVACAINE 0.25% PF 30 ML VIAL ONE (12:55)
[2020-12-02] MEDS ORDERED: LIDOCAINE 2%-EPI 1:100000 20 ML MDV ONE (12:55)
[2020-12-02] MEDS ORDERED: ePHEDrine 50 MG/ML VIAL IVP ONE (13:30)
[2020-12-02] MEDS ORDERED: BUPIVACAINE 0.25% PF 30 ML VIAL SUBQ ONE (13:41)
[2020-12-02] MEDS ORDERED: LIDOCAINE 2%-EPI 1:100000 20 ML MDV SUBQ ONE (13:41)
--- NOTE | 2020-12-02 14:20 | Nuclear Medicine Report ---
PROCEDURE: Lymph Node Scintigraphy INDICATIONS: RECURRENT LEFT BREAST CANCER RADIOPHARMACEUTICAL: 0.5-1.0 mCi Millipore filtered Tc-99m sulfur colloid. TECHNIQUE: The area around the nipple was prepped and draped in a sterile fashion. Tc-99m sulfur colloid was in jected intra-dermally in the outer edge of the areola in the left breast. Images were obtained subse quently. A body contour outline was obtained. FINDINGS: There is a cluster of lymph node(s) in the ipsilateral axilla. The lymph node closest to the injectio n site is marked on the skin and the images for referring physician. IMPRESSION: [place] lymph node mapping of the left breast for intra-operative sentinel lymph node lo calization. Reviewed by: Wei Harris MD on 12/02/2020 2:19 PM PDT Approved by: Wei Harris MD on 12/02/2020 2:19 PM PDT Station ID: [id number]
[2020-12-02] MEDS ORDERED: LACTATED RINGERS 1,000 ML IV ONE (14:47)
--- NOTE | 2020-12-02 14:53 | OPERATIVE REPORT ---
Operative Report - General Procedure Date: 12/02/20 Planned Procedure: Right mastectomy and sentinel node dissection Pre-Op Diagnosis: Recurrent right breast cancer Procedure Performed: Right mastectomy and sentinel node dissection Post Op Diagnosis: Recurrent right breast cancer - Procedure Note Primary Surgeon: Giuseppe Anesthesia Provider: Joel Gonzalez CRNA Anesthesia Technique: General LMA, Local Pathology: 1. Melville node #1 with 10-second count of 2520 2. Melville node #2 with 10-second count 6585 3. Left breast marked with a short stitch superior and long stitch lateral. Estimated Blood Loss (mL): 25 Drain/Tube Type: Nils drain (19 Sami Nils drain in the inframammary pocket) Indications: Biopsy-proven recurrent right breast cancer Findings: 2 sentinel nodes with counts as indicated above. Background in the room is 0 Background in the axilla is 33 Complications: None apparent - Other Other Information/Narrative: After obtaining informed consent, the patient was brought to the operating room and placed in the supine position on the operating table. Following successful induction of general endotracheal anesthesia, appropriate padding of all bony prominences, and placement of appropriate monitors, the left breast was prepped and draped in the standard surgical fashion. A timeout was held per scope protocol. All elements of the surgical safety checklist were followed before, during, and after the procedure. We began the procedure with a sentinel node dissection. The site of the brightest node had been marked in radiology with 2 skin marker axis. The neoprobe was used to identify the site of greatest uptake at level 2 in the patient's axilla. An incision was created over this area of uptake and carried through the skin and subcutaneous tissue to enter the axillary node packet. The first sentinel node was identified. It was noted to be grossly normal in appearance. It was carefully dissected free from surrounding stop structures sharply, all lymphatics and vasculature were addressed with clips prior to division. The node was liberated into the field. 10-second counts are re corded. Survey of the axilla revealed a second target immediately posterior to the first. This node was quite small and normal in appearance. It was carefully dissected free from surrounding stop structures sharply, all lymphatics and vasculature were addressed with clips prior to division. The node was liberated into the field. 10-second counts are recorded. Background in the axilla was checked and found to be 33. Background in the room was 0. We turned our attention to the left breast and began the procedure by infiltrating half percent Marcaine plain throughout the subcutaneous tissue of the breast and beneath the pectoralis major and minor muscles As well as portions of the serratus anterior. This was to done to provide a field block.An incision was fashioned elliptically. This incision was then completed with a 10 blade scalpel. It was carried through the skin and subcutaneous tissue. Traction and countertraction were then used to divide the underlying breast tissue from the overlying dermis from the level of the incision to the clavicle superiorly medially to the sternum inferiorly to the inframammary fold and lateral to the posterior axillary line. Once a circumferential dissection had been obtained, the breast was removed in a medial to lateral fashion. All perforators were addressed with sutures or with cautery prior to division. The breast was then marked with a short stitch superior and a long stitch lateral. The wound was irrigated with warm water and aspirated free of all fluid and particulate matter. It was checked once again for hemostasis and touched up in just a couple of places with cautery. A 19 Sami Nils drain was placed in the inframammary pocket and brought out inferior medially. It was sewn into place. The skin edges were then closed in an interrupted fashion with Vicryl suture and the Endo Close device was used to approximate the skin.
[2020-12-02] MEDS ORDERED: oxyCODONE 5 MG TABLET PO PRN (15:08)
[2020-12-02] MEDS ORDERED: IBUPROFEN 600 MG TABLET PO PRN (15:08)
[2020-12-02] MEDS ORDERED: ACETAMINOPHEN 325 MG TABLET PO PRN (15:08)
[2020-12-02] MEDS ORDERED: ACETAMINOPHEN 1,000 MG/100 ML 100 ML IV ONE (15:25)
--- NOTE | 2020-12-02 15:34 | ANESTHESIA POST OP EVALUATION ---
Anesthesia Post Eval - Post Anesthesia Eval Vitals: Last Vital Signs Temp 36.5 C 12/02/20 15:30 Pulse 66 12/02/20 15:30 Resp 18 12/02/20 15:30 BP 149/82 H 12/02/20 15:30 Pulse Ox 95 12/02/20 15:30 CV Function Including HR & BP: Stable Pain Control: Satisfactory Nausea & Vomiting: Negative Mental Status: Baseline Respiratory Status: Airway Patent Hydration Status: Satisfactory Anesthesia Complications: None
[2020-12-02 16:09] VITALS: BP 140/70
== END 2020-12-02 07:44 | disposition home or self-care (01) ==
LOC: DI 07:43
PROVIDERS: ATTEND Surgery
PROC: 0HTU0ZZ Resection of Left Breast, Open Approach (ICD-10-PCS; principal; 2020-12-02 11:45)
DX: C50.812 Malignant neoplasm of overlapping sites of left female breast (principal); I10 Essential (primary) hypertension; E11.9 Type 2 diabetes mellitus without complications; I25.10 Atherosclerotic heart disease of native coronary artery without angina pectoris; I42.1 Obstructive hypertrophic cardiomyopathy; G47.30 Sleep apnea, unspecified; J45.909 Unspecified asthma, uncomplicated; E78.5 Hyperlipidemia, unspecified; E03.9 Hypothyroidism, unspecified; L40.9 Psoriasis, unspecified; M81.0 Age-related osteoporosis without current pathological fracture; K21.9 Gastro-esophageal reflux disease without esophagitis; E66.9 Obesity, unspecified; Z68.31 Body mass index [BMI] 31.0-31.9, adult; Z79.82 Long term (current) use of aspirin; Z79.899 Other long term (current) drug therapy; Z87.440 Personal history of urinary (tract) infections
CPT/HCPCS: 78195

== ENCOUNTER 2021-02-07 08:00 | Outpatient (CLI) | payer MEDICARE, OTHER ==
[2021-02-07 13:19] LABS: CALCIUM 9.5 mg/dL (8.5-10.3); CREATININE 0.7 mg/dL (0.4-1.0); POTASSIUM 4.3 mmol/L (3.5-5.0)
[2021-02-07 13:39] LABS: CREATININE,URINE 65.2 mg/dL; MICROALBUM/CREATININE RATIO,UR 10.7 ug/mg (<30.0); MICROALBUMIN,URINE 0.7 mg/dL (0-300.0)
[2021-02-07 14:44] LABS: ESTIMATED AVERAGE GLUCOSE 126 mg/dL (70-100)
== END 2021-02-07 23:59 | disposition home or self-care (01) ==
LOC: LAB.WCP 08:00
PROVIDERS: ATTEND Family Medicine
DX: E11.9 Type 2 diabetes mellitus without complications (principal)
CPT/HCPCS: 36415; 80048; 82043; 82570; 83036

== ENCOUNTER 2021-02-18 08:31 | Outpatient (CLI) | payer MEDICARE, OTHER ==
[2021-02-18 12:41] LABS: CHOL/HDL RATIO 3.4 (<4.4); CHOLESTEROL 156 mg/dL; HDL CHOLESTEROL 46 mg/dL; LDL CHOLESTEROL,CALCULATED 90 mg/dL; TRIGLYCERIDES 98 mg/dL; VLDL CHOLESTEROL 20 mg/dL
== END 2021-02-18 23:59 | disposition home or self-care (01) ==
LOC: LAB.WCP 08:31
PROVIDERS: ATTEND Nurse Practitioner
DX: E78.5 Hyperlipidemia, unspecified (principal)
CPT/HCPCS: 36415; 80061; 83721

== ENCOUNTER 2021-05-29 13:51 | Outpatient (CLI) | payer MEDICARE, OTHER ==
[2021-05-29 14:58] VITALS: BP 152/79
--- NOTE | 2021-05-29 14:58 | SLEEP CARE CONSULTATION ---
Information from patient questionnaire entered by Damien Echevarria MA. I have reviewed and concur with the information entered by Damien Echevarria MA. This document represents the service I personally performed and the decisions made by , Zarina Payne ARNP. History of Present Illness Service Date and Time: 05/29/2021 1351 Reason for Visit: New patient (ONSET 03/2001), Previously diagnosed sleep apnea, sleep apnea on CPAP therapy, Other (NEW SCRIPT) Chief Complaint: reports: Other (NEW SCRIPT FOR CPAP) Date of Onset: 2001 Usual bedtime: 11 - 1130 PM Time it takes to fall asleep: VARIES 10 MIN TO AN HOUR Snores at night: Yes Observed to quit breathing while asleep: No Sleeps alone due to snoring: No Number of times waking at night: 2-3 Reasons for waking at night: reports: Bathroom, Other (PET NEEDING ATTENTION) Toss, Turn, or Twitch while sleeping: No (don't know) Recalls having dreams: Yes Usually gets out of bed at: [id number] Feels refreshed in the morning: Yes (usually ) Morning headache: No Sleepy or fatigued during the day: Yes (most of the time, stressful 2 years) Ever fallen asleep while driving: No Takes day naps: Yes (sometimes) Dreams during day naps: No Prior sleep studies: Yes Year and Where: 2002 2004 [facility] Additional HPI information: CLAUDINE BROWER was previously diagnosed to have moderate, AHI 29, obstructive sleep apnea-hypopnea syndrome and comes in today to establish care for CPAP therapy. - Parasomnia Symptoms Ever been unable to move upon waking from sleep: No Walks in sleep: No Talks in sleep: No Ever acted out dreams in sleep: No Ever felt weak in the knees when startled or emotional: No Bothered by creepy, crawly, restless sensations in legs: No Problems with memory or concentration: Yes (AGE RELATED) CPAP Compliance Data - Data Reviewed with Patient Average duration of nightly device use: 7 hours 3 mins Compliance rate %: 98 Current pressure setting (cmH2O): 7 Average residual AHI: 2.5 Central apnea: 0.3 Obstructive apnea: 1.9 Compliance data discussion: She has a ResMed CPAP that she got in 2012. She uses a nasal pillow mask. She gets her supplies from [employer]. Her machine has been given her an error message about the CPAP motor life being exhausted. Subjective Patient concerns: reports: dry mouth, nose, throat (sometimes). denies: aerophagia, mask discomfort, air blowing in eyes, mask leak noise, condensation in mask/hose, nasal congestion, epistaxis Observed to snore while using device: Yes (occasionally when really tired and on her back) Current pressure setting perceived as: comfortable On therapy, patient: reports: sleeping better, awakening more refreshed, being more awake and alert during the day, more rested overall. 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 Patient is and lives in [place]. Have you smoked in the past 12 months: No Alcohol use: No Caffeine use: Yes Caffeine amount and frequency: 3 X DAILY Family History Family history of sleep disordered breathing: No Allergies and Home Medications Known drug allergies: Yes (IODINE) Drug allergies reviewed: Yes Home medication list reviewed: Yes Allergy and home medication list: Allergies iodine Allergy (Severe, Verified 11/30/19 11:21) Rash shellfish derived Allergy (Verified 11/28/20 09:29) Unknown Sulfa (Sulfonamide Antibiotics) Allergy (Verified 11/30/19 11:21) Rash red dye Adverse Reaction (Verified 11/30/19 11:21) Unknown Medications: Lipitor 40 mg Micardis 80 mg Carvedilol 25 mg Amlodipine 2.5 mg anastrozle 1 mg Synthroid 50 mcg Aspirin 81 mg L-Lysine 1000 mcg Restatsis Omeprazole AREDS D3, B12, COQ10, Calcium, fish oil Alendronate 70 mg once a week Review of Systems Review of systems same as previous: Yes (BREAST/ LYMPH NODE REMOVED ON LEFT SO TOOK BP ON RIGHT, ) Weight gain over past 5 years: 5-8 Weight loss over past 5 years: 10-12 Cardiovascular: reports: high blood pressure Respiratory: reports: shortness of breath Gastrointestinal: reports: heartburn Ear/Nose/Throat: reports: dry mouth/throat, tonsillectomy, wisdom teeth removed Endocrine: reports: thyroid disease, sluggishness, too hot or cold Musculoskeletal: reports: joint pain Immunologic: reports: sneezing, itching, allergies to food or environment Physical Exam Vital signs obtained and entered by: GALE LACKEY Blood Pressure: 152/79 (right) Cuff size: regular Heart Rate: 64 O2 Saturation: 96 Height: 5 ft 4 in Weight: 182 lb Body Mass Index: 31.2 BMI Classification: Obese Heart: regular rate and rhythm Lungs: clear bilaterally Impression and Plan 1. Obstructive Sleep Apnea-Hypopnea Syndrome, moderate, with good treatment compliance and good apnea control. On CPAP therapy, the patient has better sleep quality and is more rested overall. Patient is here to establish care with us for her CPAP machine. Her CPAP device is over 5 years old and of reasonable use. Thus, the CPAP will be updated. A DWO prescription will be made. Compliance guidelines for new device and follow up discussed. Patient's apnea severity and rationale for treatment to reduce apnea, improve sleep quality and reduce cardiovascular and cerebrovascular events was reviewed. I also reviewed the benefit of consistent device use of CPAP for hypertension, diabetes and gastric reflux. * Continue CPAP pressure at 7 cmH2O * Update machine * Update supplies as needed * Notify me if snoring with mask or feeling that the pressure is too much or too little * Attempt to lose weight * Call this office if any problems using CPAP * Return for follow up one month after obtaining new device, or sooner if concerns arise Counseling Topics: Weight loss health impact Visit Type: In Office Time Spent with Patient (minutes): 32 Provider Statement: I spent 100% of the Face to Face Visit with the patient with greater than 50% spent counseling the patient and coordination of care.
== END 2021-05-29 13:52 | disposition home or self-care (01) ==
LOC: SC 13:51
PROVIDERS: ATTEND Nurse Practitioner Family
DX: G47.33 Obstructive sleep apnea (adult) (pediatric) (principal); E66.9 Obesity, unspecified; Z68.31 Body mass index [BMI] 31.0-31.9, adult
CPT/HCPCS: 99203; G0463; 99212

== ENCOUNTER 2021-07-15 09:23 | Outpatient (CLI) | payer MEDICARE, OTHER ==
--- NOTE | 2021-07-15 09:58 | SLEEP CARE CONSULTATION ---
Information from patient questionnaire entered by Alecia Gill. I have reviewed and concur with the information entered by Alecia Gill. This document represents the service I personally performed and the decisions made by , Zarina Payne ARNP. History of Present Illness Service Date and Time: 07/15/2021922 Previous diagnosis: Moderate, Obstructive Sleep Apnea-Hypopnea Syndrome AHI: 29 (in 2003) Reason for follow up: first compliance (1ST COMPLIANCE- REPL DEVICE, RESMED), first compliance after device update Equipment type: CPAP Equipment obtained from: [employer] (getting supplies as needed) Mask style: Nasal pillows Mask brand: Resmed Backup mask available: Yes (old mask) Last cushion change: 1 month Prior sleep studies: Yes Year and Where: 2002 2004 [facility] additional information: CLAUDINE BROWER was diagnosed to have moderate, AHI 29, obstructive sleep apnea- hypopnea syndrome and returned today for CPAP therapy first compliance after updating device follow-up. Sleep Study - Results Prior sleep studies: Yes Year and Where: 2002 2004 [facility] CPAP Compliance Data - Data Reviewed with Patient Average duration of nightly device use: 6 hours 51 minutes Compliance rate %: 100 (30 days) Current pressure setting (cmH2O): 7 Average residual AHI: 2.2 Central apnea: 0.2 Obstructive apnea: 1.8 Average large leak: 13.5 L/min Subjective Patient concerns: reports: condensation in mask/hose (just once). denies: aerophagia, mask discomfort, air blowing in eyes, mask leak noise, nasal congestion, dry mouth, nose, throat, epistaxis, other Observed to snore while using device: No Current pressure setting perceived as: comfortable On therapy, patient: reports: sleeping better, awakening more refreshed, being more awake and alert during the day, more rested overall. denies: drowsiness while driving Initial [place] Sleepiness Scale score: 3 (05/2021) Allergies and Home Medications Known drug allergies: Yes (iodine, shellfish ) Drug allergies reviewed: Yes Home medication list reviewed: Yes (no changes) Allergy and home medication list: Allergies iodine Allergy (Severe, Verified 11/30/19 11:21) Rash shellfish derived Allergy (Verified 11/28/20 09:29) Unknown Sulfa (Sulfonamide Antibiotics) Allergy (Verified 11/30/19 11:21) Rash red dye Adverse Reaction (Verified 11/30/19 11:21) Unknown Review of Systems Review of systems same as previous: Yes (no changes) Physical Exam Vital signs obtained and entered by: Gautam GILL MA Blood Pressure: 138/78 (manual) Cuff size: regular Heart Rate: 60 O2 Saturation: 97 Height: 5 ft 4 in Weight: 189 lb Body Mass Index: 32.4 BMI Classification: Obese Impression and Plan 1. Obstructive Sleep Apnea-Hypopnea Syndrome, moderate, with excellent treatment compliance and good apnea control. On CPAP therapy, the patient has better sleep quality and is more rested overall. Patient states she really likes her new machine, it is client service manager and smaller than her old device. She had one night when she had a little condensation in the mask but she thinks it was just positioning because it did not happen again. She has no other issues such as skin irrit ation, oral dryness, nasal congestion or aerophagia. Patient's apnea severity and rationale for treatment to reduce apnea, improve sleep quality and reduce cardiovascular and cerebrovascular events was reviewed. I also reviewed the benefit of consistent device use of CPAP for hypertension, diabetes and anxiety. 2. Obesity, unspecified. Currently patients BMI is 32.4. Obesity increases the risk of apnea, CPAP pressure requirements and overall health risks especially cardiovascular and diabetes. Thus patient is advised to lose weight. * Continue CPAP pressure at 7 cmH2O * Notify me if snoring with mask or feeling that the pressure is too much or too little * Attempt to lose weight * Call this office if any problems using CPAP * Return for follow up in 1 year, or sooner if concerns arise Counseling Topics: Spare mask, Weight loss health impact Visit Type: In Office Time Spent with Patient (minutes): 20 Provider Statement: I spent 100% of the Face to Face Visit with the patient with greater than 50% spent counseling the patient and coordination of care.
[2021-07-15 09:59] VITALS: BP 138/78
== END 2021-07-15 09:24 | disposition home or self-care (01) ==
LOC: SC 09:23
PROVIDERS: ATTEND Nurse Practitioner Family
DX: G47.33 Obstructive sleep apnea (adult) (pediatric) (principal); E66.9 Obesity, unspecified; Z68.32 Body mass index [BMI] 32.0-32.9, adult
CPT/HCPCS: 99213; G0463; 99212

== ENCOUNTER 2021-07-29 07:08 | Outpatient (CLI) | payer MEDICARE, OTHER ==
[2021-07-29 11:38] LABS: BASOPHILS # (AUTO) 0.1 10^3/uL (0.0-0.1); BASOPHILS % (AUTO) 0.7 %; EOSINOPHILS # (AUTO) 0.3 10^3/uL (0.0-0.7); EOSINOPHILS % (AUTO) 3.8 %; HGB - HEMOGLOBIN 13.8 g/dL (12.0-16.0); LYMPHOCYTES # (AUTO) 1.5 10^3/uL (1.5-3.5); LYMPHOCYTES % (AUTO) 20.4 %; MEAN CORPUSCULAR HEMOGLOBIN 30.5 pg (27.0-31.0); MEAN CORPUSCULAR HGB CONC 32.9 g/dL (32.0-36.0); MEAN CORPUSCULAR VOLUME 92.9 fL (81.0-99.0); MEAN PLATELET VOLUME 10.3 fL (7.9-10.8); MONOCYTES # (AUTO) 0.6 10^3/uL (0.0-1.0); MONOCYTES % (AUTO) 8.4 %; NEUTROPHILS # (AUTO) 4.9 10^3/uL (1.5-6.6); NEUTROPHILS % (AUTO) 66.4 %; PLT - PLATELET COUNT 250 10^3/uL (130-450); RED BLOOD COUNT 4.52 10^6/uL (4.20-5.40); RED CELL DISTRIBUTION WIDTH 12.9 % (12.0-15.0); WHITE BLOOD COUNT 7.4 x10^3/uL (4.8-10.8)
[2021-07-29 12:32] LABS: ALBUMIN/GLOBULIN RATIO 1.4 (1.0-2.2); ALKALINE PHOSPHATASE 47 IU/L (42-121); ALT ALANINE AMINOTRANSFERASE 15 IU/L (10-60); AST ASPARTATE AMINOTRANSFERASE 17 IU/L (10-42); BILIRUBIN,TOTAL 1.2 mg/dL (0.2-1.0); BUN - BLOOD UREA NITROGEN 16 mg/dL (6-20); CALCIUM 9.3 mg/dL (8.5-10.3); CARBON DIOXIDE - CO2 28 mmol/L (21-32); CHLORIDE 103 mmol/L (101-111); CHOL/HDL RATIO 3.1 (<4.4); CHOLESTEROL 147 mg/dL; CREATININE 0.7 mg/dL (0.4-1.0); GFR - MDRD 81 (>89); GLUCOSE 145 mg/dL (70-100); HDL CHOLESTEROL 47 mg/dL; LDL CHOLESTEROL,CALCULATED 80 mg/dL; LDL/HDL RATIO 1.7 (<4.4); POTASSIUM 4.2 mmol/L (3.5-5.0); SODIUM 141 mmol/L (135-145); TOTAL PROTEIN 6.8 g/dL (6.7-8.2); TRIGLYCERIDES 102 mg/dL; VLDL CHOLESTEROL 20 mg/dL
[2021-07-29 12:45] LABS: ESTIMATED AVERAGE GLUCOSE 128 mg/dL (70-100); HEMOGLOBIN A1c% 6.1 % (4.27-6.07)
[2021-07-29 12:49] LABS: CREATININE,URINE 150.6 mg/dL; MICROALBUM/CREATININE RATIO,UR 15.3 ug/mg (<30.0); MICROALBUMIN,URINE 2.3 mg/dL (0-300.0)
== END 2021-07-29 07:09 | disposition home or self-care (01) ==
LOC: LAB.N 07:08
PROVIDERS: ATTEND Family Medicine
DX: E11.9 Type 2 diabetes mellitus without complications (principal)
CPT/HCPCS: 36415; 80053; 80061; 82043; 82570; 83036; 83721; 85025

== ENCOUNTER 2021-10-02 08:16 | Outpatient (CLI) | payer MEDICARE, OTHER ==
--- NOTE | 2021-10-03 09:46 | Mammography Report ---
BILATERAL DIGITAL SCREENING MAMMOGRAM 3D/2D: 10/02/2021 CLINICAL: Routine screening. Personal history of left breast cancer. Comparison is made to exams dated: 11/22/2020 breast MRI - [facility], 10/31/2020 ultrasound biopsy , 10/31/2020 mammogram, 10/23/2020 ultrasound, 10/23/2020 mammogram, and 09/30/2020 mammogram - [facility]. There are scattered fibroglandular elements in both breasts. There are benign calcifications in the right breast. There also are benign vascular calcifications i n the right breast. Additionally, there are benign post operative findings in the right breast. No significant masses, calcifications, or other findings are seen in either breast. There has been no significant interval change. IMPRESSION: BENIGN There is no mammographic evidence of malignancy. A 1 year screening mammogram is recommended. This exam was interpreted at Station ID: [id number]. NOTE: For mammograms, a report in lay terms will be sent to the patient. Approximately 15% of breast malignancies will not be visualized mammographically. In the management of a palpable breast mass, a negative mammogram must not discourage biopsy of a clinically suspicious lesion. Electronically Signed By: Lisa kang/yas:10/02/2021 17:13:51 ACR BI-RADS Category 2: Benign Finding(s) 3342F PARENCHYMAL PATTERN: (A) - The breast(s) demonstrate(s) scattered fibroglandular densities. BI-RADS CATEGORY: (2) - 2 RECOMMENDATION: (ANNUAL) - Recommend routine annual screening mammography. [id number] 1 year screening LATERALITY: (B)
== END 2021-10-02 08:17 | disposition home or self-care (01) ==
LOC: DI.N 08:16
DX: Z12.31 Encounter for screening mammogram for malignant neoplasm of breast (principal); Z85.3 Personal history of malignant neoplasm of breast

== ENCOUNTER 2022-07-07 07:42 | Outpatient (CLI) | payer MEDICARE, OTHER ==
[2022-07-07 12:11] LABS: ALBUMIN 4.1 g/dL (3.2-5.5); ALBUMIN/GLOBULIN RATIO 1.5 (1.0-2.2); BILIRUBIN,TOTAL 0.9 mg/dL (0.2-1.0); CALCIUM 9.4 mg/dL (8.5-10.3); CREATININE 0.7 mg/dL (0.4-1.0); ESTIMATED AVERAGE GLUCOSE 128 mg/dL (70-100); HEMOGLOBIN A1c% 6.1 % (4.27-6.07); POTASSIUM 4.4 mmol/L (3.5-5.0); TOTAL PROTEIN 6.8 g/dL (6.7-8.2)
== END 2022-07-07 07:43 | disposition home or self-care (01) ==
LOC: LAB.N 07:42
PROVIDERS: ATTEND Physician Assistant
DX: E11.9 Type 2 diabetes mellitus without complications (principal)
CPT/HCPCS: 36415; 80053; 83036

== ENCOUNTER 2022-08-05 10:25 | Outpatient (CLI) | payer MEDICARE, OTHER ==
--- NOTE | 2022-08-05 10:58 | Sleep Patient Instructions ---
Sleep Center Visit Summary - Patient Visit Information Reason for Visit: Annual visit for CPAP therapy - Patient Instructions Additional Instructions: You will continue with CPAP therapy with pressure changed to 7 cmH2O. A supply prescription will be updated with your DME. We encourage you to continue to try to lose weight. Please follow up with the sleep care office in 1 year. - Clinic Information Contact: [facility] [address] [place] [address] [email or web address] T: [phone]
--- NOTE | 2022-08-05 11:01 | SLEEP CARE CONSULTATION ---
Information from patient questionnaire entered by Miladys Hwang. I have reviewed and concur with the information entered by Miladys Hwang. This document represents the service I personally performed and the decisions made by me, Zarina Payne ARNP. History of Present Illness Service Date and Time: 08/05/2022 1025 Previous diagnosis: Moderate, Obstructive Sleep Apnea-Hypopnea Syndrome AHI: 29 (in 2003) Reason for follow up: annual (LAST SEEN 07/2019) Equipment type: CPAP (RESMED Airsense 11, s/u 2021) Equipment obtained from: Juan (getting supplies as needed) Mask style: Nasal pillows Backup mask available: Yes (old mask) Last cushion change: 6-8 weeks ago Prior sleep studies: Yes Year and Where: 2002 [facility] additional information: CLAUDINE BROWER was diagnosed to have moderate, AHI 29, obstructive sleep apnea-hypopnea syndrome and returned today for CPAP therapy annual follow-up. Sleep Study - Results Prior sleep studies: Yes Year and Where: 2002 2004 [facility] Compliance Data - Data Reviewed with Patient Average duration of nightly device use: 6 HRS 59 MINS Compliance rate %: 100 (02/05/22-08/03/22; 180/180 day used) Current pressure setting (cmH2O): 7 Average residual AHI: 2.5 Central apnea: 0.1 Obstructive apnea: 1.7 Average large leak: 3.0 L/min Subjective Patient concerns: reports: condensation in mask/hose (occasional), dry mouth, nose, throat (occasional; she thinks she is oral venting). denies: aerophagia, mask discomfort, air blowing in eyes, mask leak noise, nasal congestion, epistaxis Observed to snore while using device: Yes (occasional per her ) Current pressure setting perceived as: comfortable On therapy, patient: reports: sleeping better, awakening more refreshed, being more awake and alert during the day, more rested overall. denies: drowsiness while driving Initial [place] Sleepiness Scale score: 3 (05/2021) Current [place] Sleepiness Scale score: 4 (08/05/22) Allergies and Home Medications Known drug allergies: Yes (as listed) Drug allergies reviewed: Yes Home medication list reviewed: Yes (Zocor) Allergy and home medication list: Allergies iodine Allergy (Severe, Verified 08/04/22 15:06) Rash shellfish derived Allergy (Verified 08/04/22 15:06) Unknown Sulfa (Sulfonamide Antibiotics) Allergy (Verified 08/04/22 15:06) Rash red dye Adverse Reaction (Verified 08/04/22 15:06) Unknown Review of Systems Review of systems same as previous: Yes (no changes) Physical Exam Vital signs obtained and entered by: MILADYS Dow MA Blood Pressure: 138/76 (RIGHT ARM) Cuff size: long Heart Rate: 59 O2 Saturation: 97 Height: 5 ft 4 in Weight: 202 lb Weight change since last visit: 13 lb gain Body Mass Index: 34.7 BMI Classification: Obese Impression and Plan 1. Obstructive Sleep Apnea-Hypopnea Syndrome, moderate, with good treatment compliance and good apnea control. On CPAP therapy, the patient has better sleep quality and is more rested overall. Patient has significant improvement of their sleep apnea and is satisfied with current CPAP therapy. She gets occasional mouth dryness and may be oral venting. Patient denies problems with nasal congestion, epistaxis, skin irritation or aerophagia. Patient's apnea severity and rationale for treatment to reduce apnea, improve sleep quality and reduce cardiovascular and cerebrovascular events was reviewed. I also reviewed the benefit of consistent device use of CPAP for hypertension, diabetes and anxiety. 2. Obesity, unspecified. Currently patients BMI is 34.7. Obesity increases the risk of apnea, CPAP pressure requirements and overall health risks especially cardiovascular and diabetes. Thus patient is advised to lose weight. * Continue CPAP pressure at 7 cmH2O * Update supplies * Notify me if snoring with mask or feeling that the pressure is too much or too little * Attempt to lose weight * Call this office if any problems using CPAP * Return for follow up in 1 year, or sooner if concerns arise Counseling Topics: Spare mask, Weight loss health impact Visit Type: In Office Time Spent with Patient (minutes): 20 Provider Statement: I spent 100% of the Face to Face Visit with the patient with greater than 50% spent counseling the patient and coordination of care.
[2022-08-05 11:02] VITALS: BP 138/76
== END 2022-08-05 10:26 | disposition home or self-care (01) ==
LOC: SC 10:25
PROVIDERS: ATTEND Nurse Practitioner Family
DX: G47.33 Obstructive sleep apnea (adult) (pediatric) (principal); E66.9 Obesity, unspecified; Z68.34 Body mass index [BMI] 34.0-34.9, adult
CPT/HCPCS: 99213; G0463; 99212

== ENCOUNTER 2022-10-05 12:22 | Outpatient (CLI) | payer MEDICARE, OTHER ==
--- NOTE | 2022-10-06 11:14 | Mammography Report ---
UNILATERAL RIGHT DIGITAL SCREENING MAMMOGRAM 3D/2D: 10/05/2022 CLINICAL: Routine screening. Personal history of left breast cancer. Comparison is made to exams dated: 10/02/2021 mammogram, 10/23/2020 mammogram, 06/02/2018 mammogram, an d 09/30/2020 mammogram - [facility]. There are scattered areas of fibroglandular density in the right breast (category b / 25%-50% glandul ar tissue). There are benign calcifications in the right breast. No significant masses, calcifications, or other findings are seen in the breast. There has been no significant interval change. IMPRESSION: BENIGN There is no mammographic evidence of malignancy. A 1 year screening mammogram is recommended. This exam was interpreted at Station ID: [id number]. NOTE: For mammograms, a report in lay terms will be sent to the patient. Approximately 15% of breast malignancies will not be visualized mammographically. In the management of a palpable breast mass, a negative mammogram must not discourage biopsy of a clinically suspicious lesion. Electronically Signed By: Jerry gusman/yas:10/05/2022 17:10:00 letter sent: No_Letter ACR BI-RADS Category 2: Benign Finding(s) 3342F PARENCHYMAL PATTERN: (A) - The breast(s) demonstrate(s) scattered fibroglandular densities. BI-RADS CATEGORY: (2) - 2 Mammogram [id number] 1 year screening LATERALITY: (B)
== END 2022-10-05 12:23 | disposition home or self-care (01) ==
LOC: DI.N 12:22
DX: Z12.31 Encounter for screening mammogram for malignant neoplasm of breast (principal); Z85.3 Personal history of malignant neoplasm of breast

== ENCOUNTER 2022-10-21 14:56 | Outpatient (CLI) | payer MEDICARE, OTHER ==
--- NOTE | 2022-10-21 16:39 | XRAY Report ---
PROCEDURE: Hand 3 View LT INDICATIONS: CONTUSION OF LEFT HAND,INITIAL ENCOUNTER/ UNSPECIF TECHNIQUE: 3 views of the hand(s) acquired. COMPARISON: None. FINDINGS: Bones: Sjwg-nmi-vccupmi fracture of the third metacarpal shaft with minimal displacement. Diffusely decreased osseous mineralization. Osteoarthritic changes of the interphalangeal joints, first CMC and MCP. Soft tissues: No suspicious soft tissue calcifications or masses. IMPRESSION: 1.Obliquely oriented fracture of the third metacarpal shaft. 2.Decreased osseous mineralization and osteoarthritic changes of the head. Reviewed by: Roman Herbert MD on 10/21/2022 4:38 PM PDT Approved by: Roman Herbert MD on 10/21/2022 4:38 PM PDT Station ID: [id number]
== END 2022-10-21 14:57 | disposition home or self-care (01) ==
LOC: DI 14:56
PROVIDERS: ATTEND Registered Nurse
DX: S62.323A Displaced fracture of shaft of third metacarpal bone, left hand, initial encounter for closed fracture (principal); M19.042 Primary osteoarthritis, left hand

== ENCOUNTER 2022-10-26 08:00 | Outpatient (CLI) | payer MEDICARE, OTHER ==
--- NOTE | 2022-10-26 13:51 | XRAY Report ---
PROCEDURE: Hand 3 View LT INDICATIONS: LEFT 3RD MC FRACTURE TECHNIQUE: 3 views of the hand(s) acquired. COMPARISON: None. FINDINGS: Bones: No change in alignment of the mildly displaced oblique third metacarpal fracture. Multifocal joint space narrowing and periarticular osteophyte formation, indicating osteoarthritis, as before. No suspicious bony lesions. Soft tissues: No suspicious soft tissue calcifications or masses. IMPRESSION: No change in third metacarpal fracture. Reviewed by: Tony Kumari MD on 10/26/2022 1:50 PM PDT Approved by: Tony Kumari MD on 10/26/2022 1:50 PM PDT Station ID: [id number]
--- NOTE | 2022-10-26 13:54 | XRAY Report ---
PROCEDURE: Wrist 4 View RT INDICATIONS: RIGHT WRIST PAIN TECHNIQUE: 3 views of the wrist were acquired. COMPARISON: None. FINDINGS: Bones: No fractures or dislocations. No suspicious bony lesions. Periarticular osteophyte formatio n at the scaphotrapezial, first carpometacarpal joint, and radiocarpal joint. Soft tissues: No suspicious soft tissue calcifications or masses. IMPRESSION: 1. Osteoarthritis. 2. No acute fracture. No osseous lesion. If symptoms and/or clinical suspicion for pathology continue , further assessment with repeat plain films, or advanced imaging (e.g., CT, MRI, or bone scan) is re commended for further assessment. Reviewed by: Tony Kumari MD on 10/26/2022 1:52 PM PDT Approved by: Tony Kumari MD on 10/26/2022 1:52 PM PDT Station ID: [id number]
== END 2022-10-26 23:59 | disposition home or self-care (01) ==
LOC: DI.WOS 08:00
PROVIDERS: ATTEND Orthopaedic Surgery
DX: M19.031 Primary osteoarthritis, right wrist (principal); S62.303A Unspecified fracture of third metacarpal bone, left hand, initial encounter for closed fracture

== ENCOUNTER 2022-11-23 08:00 | Outpatient (CLI) | payer MEDICARE, OTHER ==
--- NOTE | 2022-11-23 20:24 | XRAY Report ---
PROCEDURE: Wrist 4 View RT INDICATIONS: RIGHT SCAPHOID FX TECHNIQUE: 4 views of the wrist were acquired. COMPARISON: 10/26/2022 FINDINGS: Bones: No fractures or dislocations. No suspicious bony lesions. Mild triscaphe degenerative pradhan ges. Small cyst in the proximal scaphoid Soft tissues: No suspicious soft tissue calcifications or masses. IMPRESSION: Mild osteoarthritis. No evidence of fracture. No change from the prior. Reviewed by: Suhas Pascal MD on 11/23/2022 7:23 PM JAYDA Approved by: Suhas Pascal MD on 11/23/2022 7:23 PM JAYDA Station ID: [id number]
--- NOTE | 2022-11-23 20:31 | XRAY Report ---
PROCEDURE: Hand 3 View LT INDICATIONS: LEFT HAND FRACTURE TECHNIQUE: 3 view(s) of the hand(s) acquired. COMPARISON: 10/26/2022 FINDINGS: Bones: There is persistent linear lucency associated with oblique fracture third metacarpal. Bridging callus noted distally. Softening the fracture lines. Degenerative arthritic changes noted involving the interphalangeal joints, stable Generalized decreased osseous mineralization present. Soft tissues: No suspicious soft tissue calcifications. IMPRESSION: Healing oblique third metacarpal fracture. Osteopenia. Reviewed by: Suhas Pascal MD on 11/23/2022 7:30 PM JAYDA Approved by: Suhas Pascal MD on 11/23/2022 7:30 PM JAYDA Station ID: [id number]
== END 2022-11-23 23:59 | disposition home or self-care (01) ==
LOC: DI.WOS 08:00
PROVIDERS: ATTEND Orthopaedic Surgery
DX: S62.303D Unspecified fracture of third metacarpal bone, left hand, subsequent encounter for fracture with routine healing (principal); M85.842 Other specified disorders of bone density and structure, left hand

== ENCOUNTER 2022-12-28 08:00 | Outpatient (CLI) | payer MEDICARE, OTHER ==
--- NOTE | 2022-12-28 12:46 | XRAY Report ---
PROCEDURE: Wrist 4 View RT INDICATIONS: RIGHT WRIST FRACTURE TECHNIQUE: 4 views of the wrist were acquired. COMPARISON: Right wrist radiographs 11/23/2022 and 10/26/2022 FINDINGS: Bones: No acute or healing fracture identified. No suspicious bony lesions. Denies osteopenia. Dege nerative changes are again noted. Soft tissues: No suspicious soft tissue calcifications or masses. IMPRESSION: No acute or healing osseous fracture identified. If symptoms persist or there is continued clinical c oncern, further evaluation with MRI or CT may be helpful. Reviewed by: Jeovanny William MD on 12/28/2022 12:45 PM PDT Approved by: Jeovanny William MD on 12/28/2022 12:45 PM PDT Station ID: [id number]
== END 2022-12-28 23:59 | disposition home or self-care (01) ==
LOC: DI.WOS 08:00
PROVIDERS: ATTEND Orthopaedic Surgery
DX: M19.031 Primary osteoarthritis, right wrist (principal)

== ENCOUNTER 2023-01-05 08:35 | Outpatient (CLI) | payer MEDICARE, OTHER ==
[2023-01-05 12:35] LABS: BASOPHILS % (AUTO) 0.4 %; EOSINOPHILS # (AUTO) 0.2 10^3/uL (0.0-0.7); EOSINOPHILS % (AUTO) 3.3 %; HCT - HEMATOCRIT 40.1 % (37.0-47.0); LYMPHOCYTES # (AUTO) 1.3 10^3/uL (1.5-3.5); LYMPHOCYTES % (AUTO) 19.7 %; MEAN CORPUSCULAR HEMOGLOBIN 30.2 pg (27.0-31.0); MEAN CORPUSCULAR HGB CONC 32.4 g/dL (32.0-36.0); MEAN PLATELET VOLUME 10.4 fL (7.9-10.8); MONOCYTES # (AUTO) 0.5 10^3/uL (0.0-1.0); NEUTROPHILS # (AUTO) 4.6 10^3/uL (1.5-6.6); NEUTROPHILS % (AUTO) 68.5 %; PLT - PLATELET COUNT 239 10^3/uL (130-450); RED BLOOD COUNT 4.31 10^6/uL (4.20-5.40); RED CELL DISTRIBUTION WIDTH 13.1 % (12.0-15.0); WHITE BLOOD COUNT 6.7 x10^3/uL (4.8-10.8)
[2023-01-05 12:42] LABS: ESTIMATED AVERAGE GLUCOSE 134 mg/dL (70-100); HEMOGLOBIN A1c% 6.3 % (4.27-6.07)
[2023-01-05 13:05] LABS: THYROID STIMULATING HORMONE 3.01 uIU/mL (0.34-5.60)
[2023-01-05 13:06] LABS: ALBUMIN 4.2 g/dL (3.2-5.5); ALBUMIN/GLOBULIN RATIO 1.5 (1.0-2.2); ALKALINE PHOSPHATASE 55 IU/L (42-121); ALT ALANINE AMINOTRANSFERASE 14 IU/L (10-60); AST ASPARTATE AMINOTRANSFERASE 15 IU/L (10-42); BILIRUBIN,TOTAL 0.8 mg/dL (0.2-1.0); BUN - BLOOD UREA NITROGEN 14 mg/dL (6-20); CALCIUM 9.6 mg/dL (8.5-10.3); CARBON DIOXIDE - CO2 27 mmol/L (21-32); CHLORIDE 105 mmol/L (101-111); CHOL/HDL RATIO 3.3 (<4.4); CHOLESTEROL 152 mg/dL; CREATININE 0.6 mg/dL (0.6-1.3); GFR - MDRD 96 (>89); GLUCOSE 134 mg/dL (74-104); HDL CHOLESTEROL 46 mg/dL; LDL CHOLESTEROL,CALCULATED 85 mg/dL; LDL/HDL RATIO 1.8 (<4.4); POTASSIUM 4.3 mmol/L (3.5-4.5); SODIUM 138 mmol/L (135-145); TRIGLYCERIDES 103 mg/dL (48-352); VLDL CHOLESTEROL 21 mg/dL
== END 2023-01-05 08:36 | disposition home or self-care (01) ==
LOC: LAB.N 08:35
PROVIDERS: ATTEND Physician Assistant
DX: I10 Essential (primary) hypertension (principal); E78.5 Hyperlipidemia, unspecified; E11.9 Type 2 diabetes mellitus without complications; E03.9 Hypothyroidism, unspecified
CPT/HCPCS: 36415; 80053; 80061; 83036; 83721; 84443; 85025

== ENCOUNTER 2023-01-21 07:57 | Outpatient (CLI) | payer MEDICARE, OTHER ==
--- NOTE | 2023-01-21 11:43 | DEXA Report ---
PROCEDURE: Dexa Spine and/or Hip INDICATIONS: OSTEOPOROSIS TECHNIQUE: Dual energy x-ray absorptiometry (DXA) was performed on a [employer] System. Regions measur ed are the AP Spine, femoral neck, and if needed forearm. COMPARISON: None FINDINGS: Lumbar Spine: L1 excluded due to increased density/kyphoplasty changes. Bone Mineral Density 1.103 g/cm/cm,T score -0.8. Left Femoral Neck: Bone Mineral Density 0.607 g/cm/cm, T score -3.1. Left Hip: Bone Mineral Density 0.750 g/cm/cm,T score -2.0. (T score greater or equal to -1.0: NORMAL) (T score from -1.1 to -2.4: OSTEOPENIA) (T score less than or equal to -2.5 to: OSTEOPOROSIS) Impression: By WHO criteria, this patient has osteoporosis. Patients with diagnosis of osteoporosis or osteopenia should have regular bone mineral density assess ment. For those eligible for Medicare, routine testing is allowed once every 2 years. Testing frequ ency can be increased for patients who have rapidly progressing disease or for those who are receivin g medical therapy to restore bone mass. Reviewed by: Elvis Mcdonough on 01/21/2023 11:41 AM PST Approved by: Elvis Mcdonough on 01/21/2023 11:41 AM PST Station ID: [id number]
== END 2023-01-21 07:58 | disposition home or self-care (01) ==
LOC: DI 07:57
PROVIDERS: ATTEND Physician Assistant
DX: M81.0 Age-related osteoporosis without current pathological fracture (principal)
CPT/HCPCS: 36415; 82306

== ENCOUNTER → 2023-01-28 | Outpatient (CLI) | payer MEDICARE, OTHER ==
--- NOTE | 2023-01-28 16:06 | XRAY Report ---
PROCEDURE: Hand 3 View LT INDICATIONS: LEFT 3RD MC FRACTURE TECHNIQUE: 3 views of the hand(s) acquired. COMPARISON: 11/23/2022 FINDINGS: Bones: Mildly displaced third metacarpal fracture. Bridging trabeculae noted at the fracture site co mpatible with progression of healing Soft tissues: No suspicious soft tissue calcifications or masses. IMPRESSION: Healing third metacarpal fracture. Reviewed by: Tatum Lopez MD, PhD on 01/28/2023 4:05 PM PST Approved by: Tatum Lopez MD, PhD on 01/28/2023 4:05 PM PST Station ID: [id number]
--- NOTE | 2023-01-28 16:08 | XRAY Report ---
PROCEDURE: Wrist 4 View RT INDICATIONS: RIGHT SCAPHOID FRACTURE TECHNIQUE: 4 views of the wrist were acquired. COMPARISON: 12/28/2022. FINDINGS: Bones: No fractures or dislocations. No suspicious bony lesions. Polyarticular Soft tissues: No suspicious soft tissue calcifications or masses. IMPRESSION: No acute osseous abnormality. If there is continued concern for pathology consider advancing imaging (CT, MR) were additional evaluation. Reviewed by: Tatum Lopez MD, PhD on 01/28/2023 4:07 PM PST Approved by: Tatum Lopez MD, PhD on 01/28/2023 4:07 PM PST Station ID: [id number]
== END ==
LOC: DI.WOS 08:00
PROVIDERS: ATTEND Orthopaedic Surgery
DX: S62.323D Displaced fracture of shaft of third metacarpal bone, left hand, subsequent encounter for fracture with routine healing (principal)

== ENCOUNTER 2023-07-09 08:12 | Outpatient (CLI) | payer MEDICARE, OTHER ==
[2023-07-09 12:29] LABS: BASOPHILS # (AUTO) 0.1 10^3/uL (0.0-0.1); BASOPHILS % (AUTO) 0.7 %; EOSINOPHILS # (AUTO) 0.2 10^3/uL (0.0-0.7); EOSINOPHILS % (AUTO) 3.5 %; HCT - HEMATOCRIT 40.7 % (37.0-47.0); HGB - HEMOGLOBIN 13.3 g/dL (12.0-16.0); LYMPHOCYTES # (AUTO) 1.2 10^3/uL (1.5-3.5); LYMPHOCYTES % (AUTO) 17.4 %; MEAN CORPUSCULAR HEMOGLOBIN 30.8 pg (27.0-31.0); MEAN CORPUSCULAR HGB CONC 32.7 g/dL (32.0-36.0); MEAN CORPUSCULAR VOLUME 94.2 fL (81.0-99.0); MEAN PLATELET VOLUME 9.8 fL (7.9-10.8); MONOCYTES # (AUTO) 0.5 10^3/uL (0.0-1.0); MONOCYTES % (AUTO) 7.9 %; NEUTROPHILS # (AUTO) 4.8 10^3/uL (1.5-6.6); NEUTROPHILS % (AUTO) 70.1 %; PLT - PLATELET COUNT 262 10^3/uL (130-450); RED BLOOD COUNT 4.32 10^6/uL (4.20-5.40); RED CELL DISTRIBUTION WIDTH 12.7 % (12.0-15.0); WHITE BLOOD COUNT 6.8 x10^3/uL (4.8-10.8)
[2023-07-09 13:00] LABS: ALBUMIN 4.2 g/dL (3.2-5.5); ALBUMIN/GLOBULIN RATIO 1.7 (1.0-2.2); ALKALINE PHOSPHATASE 41 IU/L (42-121); ALT ALANINE AMINOTRANSFERASE 14 IU/L (10-60); AST ASPARTATE AMINOTRANSFERASE 13 IU/L (10-42); BILIRUBIN,TOTAL 0.7 mg/dL (0.2-1.0); BUN - BLOOD UREA NITROGEN 13 mg/dL (6-20); CALCIUM 9.5 mg/dL (8.5-10.3); CARBON DIOXIDE - CO2 26 mmol/L (21-32); CHLORIDE 105 mmol/L (101-111); CHOL/HDL RATIO 3.4 (<4.4); CHOLESTEROL 173 mg/dL; CREATININE 0.7 mg/dL (0.6-1.3); GFR - MDRD 80 (>89); GLUCOSE 164 mg/dL (74-104); HDL CHOLESTEROL 51 mg/dL; LDL CHOLESTEROL,CALCULATED 93 mg/dL; LDL/HDL RATIO 1.8 (<4.4); POTASSIUM 4.1 mmol/L (3.5-4.5); SODIUM 137 mmol/L (135-145); TOTAL PROTEIN 6.7 g/dL (6.4-8.9); TRIGLYCERIDES 145 mg/dL (48-352); VLDL CHOLESTEROL 29 mg/dL
[2023-07-09 13:05] LABS: THYROID STIMULATING HORMONE 3.32 uIU/mL (0.34-5.60)
[2023-07-09 13:41] LABS: CREATININE,URINE 101.9 mg/dL; MICROALBUM/CREATININE RATIO,UR 20.6 ug/mg (<30.0); MICROALBUMIN,URINE 2.1 mg/dL
[2023-07-09 14:36] LABS: ESTIMATED AVERAGE GLUCOSE 140 mg/dL (70-100); HEMOGLOBIN A1c% 6.5 % (4.27-6.07)
== END 2023-07-09 08:13 | disposition home or self-care (01) ==
LOC: LAB.N 08:12
PROVIDERS: ATTEND Physician Assistant
DX: I10 Essential (primary) hypertension (principal); E11.9 Type 2 diabetes mellitus without complications; E78.5 Hyperlipidemia, unspecified; E03.9 Hypothyroidism, unspecified
CPT/HCPCS: 36415; 80053; 80061; 82043; 82570; 83036; 83721; 84443; 85025

== ENCOUNTER 2023-10-07 08:40 | Outpatient (CLI) | payer MEDICARE, OTHER ==
--- NOTE | 2023-10-08 09:25 | Mammography Report ---
UNILATERAL RIGHT DIGITAL SCREENING MAMMOGRAM 3D/2D: 10/07/2023 CLINICAL: Routine screening. Personal history of left breast cancer. Comparison is made to exams dated: 10/05/2022 mammogram, 10/02/2021 mammogram - [facility], 11/22/2020 breast MRI - [facility], 10/31/2020 ultrasound biopsy, 10/31/2020 mammogram, and ultrasound - [facility]. There are scattered areas of fibroglandular density in the right breast (category b / 25%-50% glandul ar tissue). There are benign calcifications in the right breast. No significant masses, calcifications, or other findings are seen in the breast. There has been no significant interval change. IMPRESSION: BENIGN There is no mammographic evidence of malignancy. A 1 year screening mammogram is recommended. This exam was interpreted at Station ID: [id number]. NOTE: For mammograms, a report in lay terms will be sent to the patient. Approximately 15% of breast malignancies will not be visualized mammographically. In the management of a palpable breast mass, a negative mammogram must not discourage biopsy of a clinically suspicious lesion. Electronically Signed By: Mary Bermeo M.D., Ph.D. eb/yas:10/08/2023 08:39:27 letter sent: No_Letter ACR BI-RADS Category 2: Benign Finding(s) 3342F PARENCHYMAL PATTERN: (A) - The breast(s) demonstrate(s) scattered fibroglandular densities. BI-RADS CATEGORY: (2) - 2 RECOMMENDATION: (ANNUAL) - Recommend routine annual screening mammography. [id number] 1 year screening LATERALITY: (B)
== END 2023-10-07 08:41 | disposition home or self-care (01) ==
LOC: DI.N 08:40
DX: Z12.31 Encounter for screening mammogram for malignant neoplasm of breast (principal); Z85.3 Personal history of malignant neoplasm of breast; R92.321 Mammographic fibroglandular density, right breast; R92.1 Mammographic calcification found on diagnostic imaging of breast